=== PATIENT | male | born 1945 | race Caucasian/White ===

== ENCOUNTER → 2018-02-07 12:40 | Outpatient (CLI) | payer MEDICARE, SELFPAY | PROVIDERS: Family Provider Family Medicine; PCP Family Medicine; Visit Provider Internal Medicine Cardiovascular Disease | DX: I47.1 Supraventricular tachycardia (principal) | CPT/HCPCS: 93306 ==

== ENCOUNTER 2018-02-17 10:54 | Day surgery (SDC) | payer MEDICARE, SELFPAY ==
[2018-01-29 17:18] LABS: Absolute Lymphocyte Count 1.52 X10^3/ul (0.83-4.51); Basophil# 0.02 X10^3/uL; Basophil% 0.3 % (0-1); Eosinophil# 0.13 X10^3/uL; Eosinophils% 1.7 % (0-5); Hematocrit 48.2 % (40-54); Hemoglobin 15.9 g/dl (13.0-16.5); Lymphocyte # 1.52 X10^3/ul (4.0); Lymphocyte % 19.6 % (19-41); Mean Corpuscular Hgb 30.1 pg (27.0-32.0); Mean Corpuscular Volume 91.3 fL (80-94); Mean Platelet Vol. 11.7 fl (6.2-12.0); Monocyte# 1.11 X10^3/uL; Monocyte% 14.3 % (0-10); Neutrophil # 4.98 X10^3/uL (2.7-7.7); Platelet Count 204 K/mm3 (150-450); RBC Distribution Width CV 13.7 % (11.6-14.6); RBC Distribution Width SD 44.9 fl (35.1-43.9); Red Blood Count 5.28 M/mm3 (4.6-6.2); White Blood Count 7.8 K/mm3 (4.4-11.0)
[2018-01-29 17:19] LABS: POSITIVE COUNT NO; POSITIVE DIFFERENTIAL NO; POSITIVE MORPHOLOGY NO
[2018-01-29 18:02] LABS: Anion Gap 10 (5-15); BUN 21 mg/dL (7-18); BUN/Creat Ratio 17.5 RATIO (10-20); Chloride 104 mmol/L (98-107); EST Glomerular Filtration Rate 63 mL/min (>60); Est Glom Filt Rate - Afr Amer 77 mL/min (>60); Glucose 84 mg/dL (74-106); Potassium 4.2 mmol/L (3.5-5.1); Sodium Level 141 mmol/L (136-145)
--- NOTE | 2018-02-17 13:43 | PCM.OP.BLANK ---
Problem List (1) Fatigue Status: Acute (2) Hyperlipidemia Status: Chronic (3) Hypertension Status: Chronic (4) Paroxysmal atrial fibrillation Status: Chronic Operative Report Date of Procedure: 02/17/18 - Conscious sedation CONSCIOUS SEDATION REPORT BRIEF HISTORY OF PRESENT ILLNESS: The patient is a 72-year-old male who presented to [facility] for an elective outpatient cardioversion due to underlying atrial fibrillation. The patient reports no PO intake since midnight. The patient does not have a history of obstructive sleep apnea. The patient reports no history of smoking and COPD. The patient denies any recent constitutional symptoms such as fevers, chills, nausea or vomiting. The patient denies previous anesthetic complications. Patient's last known ejection fraction is 60%. PHYSICAL EXAMINATION: VITAL SIGNS: Reviewed and were acceptable. GENERAL: The patient is an obese male, in no apparent distress, speaking in full sentences. HEENT: Normocephalic, atraumatic. Mucous membranes are moist and pink. Good mouth opening noted. Trachea is midline. Good neck mobility. MP II CHEST: S1, S2 irregularly irregular. No murmurs, rubs or gallops were noted. LUNGS: Clear to auscultation bilaterally without appreciable wheezes, rales or rhonchi. ABDOMEN: Soft, nontender, nondistended. Positive bowel sounds. EXTREMITIES: There is no clubbing, cyanosis or edema. ASA Class: II DESCRIPTION OF PROCEDURE: After confirmation of informed consent, the patient's anesthesia plan was reviewed in detail. Propofol was chosen. Risks and benefits were reviewed and the patient agreed to proceed. At 11:22 AM, the patient was given 40 mg of propofol. The patient achieved an appropriate level of sedation and received 1 attempt s synchronized cardioversion, at [address] Rick at the bedside. This was successful in achieving normal sinus rhythm. The patient was monitored until 11:28 AM, at which time the patient reached their baseline mental status and function. The patient tolerated the procedure well. COMPLICATIONS: None ESTIMATED BLOOD LOSS: None RECOMMENDATIONS: Okay to recover in usual fashion. Code Visit 9xxxx: Other Procedure See Report - [id number]
--- NOTE | 2018-02-17 15:19 | PCM.OP.BLANK ---
Operative Report Date of Procedure: 02/17/18 DC cardioversion. 72-year-old man with a history of chronic persistent atrial fibrillation who has been anticoagulated for at least 3 weeks. The patient was brought to the cardiac catheterization lab in the postabsorptive nonsedated state. The patient was evaluated by Dr. Duncan of the critical care division. After informed consent was obtained and the ejection fraction verified as well as his medication compliance anterior posterior pads were applied. The patient was administered 40 mg of intravenous propofol, and 200 J of synchronized DC cardioversion biphasic energy were applied with prompt reversal to sinus rhythm. The patient tolerated the procedure well. Conclusion: Successful DC cardioversion from atrial fibrillation to sinus rhythm.
== END 2018-02-17 12:45 | disposition home or self-care (01) ==
LOC: CLSP 10:55
PROVIDERS: Family Provider Family Medicine; PCP Family Medicine; Visit Provider Internal Medicine Cardiovascular Disease
DX: I48.0 Paroxysmal atrial fibrillation (principal); I10 Essential (primary) hypertension; E78.5 Hyperlipidemia, unspecified; E11.9 Type 2 diabetes mellitus without complications; F41.9 Anxiety disorder, unspecified; F32.9 Major depressive disorder, single episode, unspecified; K21.9 Gastro-esophageal reflux disease without esophagitis; N40.0 Benign prostatic hyperplasia without lower urinary tract symptoms; Z79.02 Long term (current) use of antithrombotics/antiplatelets; Z79.899 Other long term (current) drug therapy; Z79.84 Long term (current) use of oral hypoglycemic drugs
CPT/HCPCS: 36415; 80048; 85025; 92960; 93005; J7040

== ENCOUNTER → 2019-02-16 | Outpatient (CLI) | payer MEDICARE, SELFPAY ==
[2018-10-17 09:29] VITALS: BMI 27.6
== END | disposition home or self-care (01) ==
LOC: PSN 12:46
PROVIDERS: Family Provider Family Medicine; PCP Family Medicine; Referring Provider Nurse Practitioner Family; Visit Provider Nurse Practitioner Family
DX: R00.1 Bradycardia, unspecified (principal)
CPT/HCPCS: 93225; 93226

== ENCOUNTER 2019-03-02 14:10 | Observation (INO) | payer MEDICARE, SELFPAY ==
[2018-10-17 09:29] VITALS: BMI 27.6
--- NOTE | 2019-02-25 03:35 | HP_ITS ---
HPI HPI History of Present Illness Surgical H&P: Yes Details: GARRETT MAHARAJ, is a 73 M who presents to the office today for a cardiovascular outpatient follow-up. He has a history of atrial fibrillation with rapid ventricular response rate. In the past he as been on amiodarone and also sotalol. His heart rate was apparently too slow on the sotalol and it was discontinued and changed over to amiodarone. He underwent a cardioversion in February 2018. He also has a history of hypertension, hyperlipidemia, and diabetes mellitus. Patient underwent a 48-hour Holter monitor after being dizzy and bradycardic at primary care physician. Per report this showed intermittent second-degree AV block type II. Because of this, his amiodarone and Coumadin was placed on hold. He will proceed with a permanent pacemaker. He continues with dizziness. This is most noted when going from a lying to standing position and when moving his head certain positions. This can be associated with near syncope. Pt. denies chest, arm, jaw, or neck discomfort. His exercise tolerance is stable. Pt. denies symptoms of CHF, palpitations, lightheadedness, or syncopal episodes. Pt. denies edema or claudication issues. Pt. denies orthopnea, PND, blood in urine, blood in stool, myalgia, or unexplainable fatigue. Intake Vital Signs 02/25/19 Height 6 ft 2 in 02/25/19 Weight: 215 lb 02/25/19 Body Mass Index (BMI) 27.6 02/25/19 Blood Pressure 113/67 02/25/19 Blood Pressure Location Lt brachial 02/25/19 Respiratory Rate 16 02/25/19 Pulse Rate 63 02/25/19 Pulse Source Monitor 02/25/19 Pulse Ox 94 Intake Visit Reasons: update H & P Deputy General Counsel Required: No Is patient in pain?: No Allergies No Known Allergies Allergy (Verified 02/25/19 14:56) Medications gabapentin 300 mg capsule 300 mg PO TID 01/29/18 [History Confirmed 02/25/19] lisinopril 20 mg tablet 20 mg PO DAILY 01/29/18 [History Confirmed 02/25/19] magnesium 250 mg tablet 250 mg PO DAILY 01/29/18 [History Confirmed 02/25/19] metformin 500 mg tablet 500 mg PO DAILY tab 01/29/18 [History Confirmed 02/25/19] multivitamin tablet 1 tab PO DAILY 01/29/18 [History Confirmed 02/25/19] sertraline 100 mg tablet 100 mg PO DAILY 01/29/18 [History Confirmed 02/25/19] tamsulosin 0.4 mg capsule 0.4 mg PO DAILY 01/29/18 [History Confirmed 02/25/19] warfarin 5 mg tablet 5 mg PO .COMPLEX 06/23/18 [History Confirmed 02/25/19] atorvastatin 40 mg tablet 40 mg PO QHS 10/17/18 [History Confirmed 02/25/19] famotidine 40 mg tablet 40 mg PO BID 02/25/19 [History Confirmed 02/25/19] [facility] Medical History (Updated 02/23/19 @ 18:00 by Liz Rankin) Mobitz type 2 second degree heart block (Chronic) Essential hypertension (Chronic) Hyperlipidemia (Chronic) Paroxysmal atrial tachycardia (Chronic) Paroxysmal atrial fibrillation (Chronic) Anxiety and depression (Chronic) BPH (benign prostatic hyperplasia) (Chronic) Chronic laryngitis (Chronic) Diverticula of colon (Chronic) GERD (gastroesophageal reflux disease) (Chronic) Gout (Chronic) Type 2 diabetes mellitus (Chronic) Fatigue (Resolved) Surgical History (Updated 04/17/18 @ 08:31 by Lilly Peraza) History of bilateral knee replacement (Resolved) History of cardioversion (Resolved 04/15/14) Previous back surgery (Resolved) amputation of toe (Resolved) Family History (Updated 04/17/18 @ 08:33 by Lilly Peraza) Mother Heart disease Father Heart disease Brother Heart disease Brother Heart disease Social History (Updated 02/25/19 @ 15:35 by ALINE Whitley) Smoking Status: Never smoker alcohol intake: never caffeine: No ROS Const Const: Negative for fatigue, weakness, body ache, fever(s) or chills ENT ENT: Positive for dizziness Cardio Chest Pain: No Palpitations: No Edema: None Muscle aches with walking: None Resp Respiratory: Negative for SOB with activity, SOB at rest, SOB orthopnea\SOB lying down or paroxysmal nocturnal dyspnea GI GI: Negative nausea, vomiting blood/hematemesis, bright, red blood in stools or black,tarry stools : Negative for hematuria or frequent nighttime urination/ nocturia Musc Musc: Negative for muscle aches/ myalgia Skin Skin: Negative non-healing lesions or rash Neuro Neuro: Positive for dizziness and near syncope; negative for lightheadedness, syncope, orthostatic symptoms or weakness Endo Endo: Negative for fatigue Allergy Allergy/Immunology: Negative for rash Cardiology Exam Const Appearance: cooperative, healthy appearing, comfortable and no acute distress Nutritional Appearance: well nourished and overweight Orientation: alert, awake and oriented x3 Head Head: normal to inspection Ears: hearing grossly normal bilaterally Nose: external nose normal Face and Sinus: face symmetric Mouth: oral mucosae normal Eyes General: appearance normal, both eyes and all related structures Eyelids: eyelids normal EOM: EOM intact bilaterally Neck Neck: normal visual inspection and no JVD Carotids: normal carotid upstroke Chest Chest inspection: normal inspection of the chest, symmetric chest movement and normal respiratory effort; negative cough Auscultation: Bilateral: Clear to Auscultation Cardio Rate: regular rate Rhythm: regular rhythm Heart sounds: S1 normal and S2 normal; negative rub, gallop or murmur GI GI: normal to inspection Neuro General: alert, awake, oriented x3 and CN's II-XI intact bilaterally Skin Skin: no rashes or lesions noted Extremities Pulses: Normal: Right Posterior Tibial Pulse, Left Posterior Tibial Pulse, Right Radial Pulse, Left Radial Pulse Lower Extremity Edema: None: Bilateral Psych Psychological: normal affect Assessment & Plan 1. Mobitz type 2 second degree heart block I44.1 Plan Second-degree AV block type II. Because of this, he will proceed with pacemaker insertion. Hopefully, this improves hisPatient's 48-hour Holter monitor from 02/16/2019 showed intermittent episodes of ongoing dizziness. His most recent echocardiogram from February 2018 showed ejection fraction of 60% and mild mitral valve insufficiency. His last nuclear stress test from 09/23/2017 was negative for ischemia. Patient was asked to keep an ENT evaluation in regards to his dizziness to ensure no other etiology. 2. Paroxysmal atrial fibrillation I48.0 Plan Patient's most recent 48-hour Holter monitor revealed no atrial fibrillation. After permanent pacemaker will be discussed in regards to resuming amiodarone. Ideally, since this has been successful he should return to amiodarone 2 mg p.o. daily. He will require ongoing evaluation of his liver function, thyroid function, and pulmonary status with chest x-ray and pulmonary function testing. 3. Essential (primary) hypertension I10 Plan Patient's heart rate and blood pressure is well controlled today in office. He will continue current medical therapy and will continue to monitor. Plan Detail Additional Comments Patient is expected undergo permanent pacemaker placement with Dr. Rick. Thank you for allowing us to participate in the patients plan of care, if you have any questions please do not hesitate to call. This note was generated using a voice recognition system and there may be incorrect words, spelling or punctuation that were not noted when reviewing the office note prior to saving. Coding Level of Care Code Off vis,est,level 3 Diagnoses Mobitz type 2 second degree heart block I44.1 Paroxysmal atrial fibrillation I48.0 Essential (primary) hypertension I10 Coding Level of Care Code Off vis,est,level 3 Diagnoses Mobitz type 2 second degree heart block I44.1 Paroxysmal atrial fibrillation I48.0 Essential (primary) hypertension I10 Supplemental Info Supplemental Information Echocardiogram from 02/07/2018: Interpretation Summary Normal LV size. Left ventricular systolic function is normal. The estimated ejection fraction is 60 %. Unable to assess diastolic dysfunction due to arrhythmia. Mild (1+) eccentric mitral valve insufficiency. Mild tricuspid valve insufficiency. Pulmonary artery systolic pressure is 24 mmHg. Diagnostics Electrocardiogram 02/24/18 Echocardiogram 02/07/18 02/25/19 1535 <Electronically signed by Alan Andrew> Date _ Alan [facility]
[2019-02-25 14:56] VITALS: BMI 27.6
--- NOTE | 2019-02-25 16:01 | RAD_ITS ---
STUDY: X-RAY CHEST REASON FOR EXAM: Male, 73 years old. Preop TECHNIQUE: PA and lateral views of the chest. COMPARISON: None. FINDINGS: The lungs are clear and expanded. There is no demonstrated pleural abnormality. Normal size heart. Normal mediastinum and carmela. Normal visualized pulmonary arteries. Normal visualized aortic arch and descending thoracic aorta. There are diffuse degenerative changes of the visualized thoracic spine. Normal visualized ribs, clavicles, and shoulders. There is no demonstrated abnormality of the visualized soft tissue structures of the upper abdomen. RAD/Chest PA and Lateral IMPRESSION: Degenerative changes, as described above. No demonstrated acute cardiopulmonary process. Electronically Signed: Alvarado Foley MD at 17:46 EDT , Service support ,
[2019-02-25 16:14] LABS: Mucous, Urine 0 SEEN /hpf (<or=2+); Red Blood Cells-Urine 0 SEEN /hpf (0-5); Squamous Epithelial Cells - UA 0 SEEN /hpf (0-5)
[2019-02-25 17:08] LABS: Hematocrit 42.8 % (40-54); Hemoglobin 14.4 g/dL (13.0-16.5); Mean Corp Hgb Conc 33.6 g/dL (32-36); Mean Corpuscular Hgb 30.7 pg (27.0-32.0); Mean Corpuscular Volume 91.3 fL (80-94); Mean Platelet Vol. 11.8 fl (6.2-12.0); Platelet Count 171 K/mm3 (150-450); RBC Distribution Width CV 13.2 % (11.6-14.6); RBC Distribution Width SD 44.2 fl (35.1-43.9); Red Blood Count 4.69 M/mm3 (4.6-6.2)
[2019-02-25 17:09] LABS: Color, Urine Yellow (Yellow); Glucose, Dipstick Normal (Normal); Ketone-Dipstick Negative (Negative); Leukocyte Esterase-Dipstick Negative /ul (Negative); Nitrite-Dipstick Negative (Negative); Occult Blood-Urine Negative /ul (Negative); Protein-Dipstick Negative (Negative); Urine Bilirubin Dipstick Negative (Negative); Urine Clarity Clear (Clear); Urine Urobilinogen Normal (Normal)
[2019-02-25 17:18] LABS: Bacteria 1+ /hpf (None Seen); White Blood Cells 0-5 SEEN /hpf (0-5)
[2019-02-25 17:33] LABS: Prothrombin Time (Protime)PT. 22.8 SECONDS (11.7-14.9)
[2019-02-25 17:37] LABS: Anion Gap 5 (5-15); BUN 18 mg/dL (7-18); Calcium,Total 8.1 mg/dL (8.5-10.1); Chloride 110 mmol/L (98-107); Creatinine, Serum 1.06 mg/dL (0.70-1.30); EST Glomerular Filtration Rate 73 mL/min (>60); Est Glom Filt Rate - Afr Amer 88 mL/min (>60); Glucose 97 mg/dL (74-106); Potassium 3.9 mmol/L (3.5-5.1); Sodium Level 143 mmol/L (136-145)
[2019-02-27 13:04] VITALS: BMI 27.6
[2019-03-02] VITALS (12 sets, daily range): BP systolic 120–146; BP diastolic 53–94; PULSE 48–57; RESP 14–16; TEMP 36.6–37.1; O2SAT 96–98
[2019-03-02] MEDS: Cefazolin 2 GM in 0.9% Normal Saline 100 ML IV (07:00)
[2019-03-02 10:49] LABS: Prothrombin Time Fingerstick 11.8 SEC (11.9-14.4)
--- NOTE | 2019-03-02 14:08 | CL.IE_ITS ---
Patient: GARRETT MAHARAJ Study Date: 03/02/2019 Performing: Carlos Rick MD : 1945 Age: 74 Gender: male PROCEDURES PERFORMED [id number] PACER INSERT+DUAL LEADS INDICATIONS Mobitz (type II) AV block PROCEDURE DETAILS The patient was brought to the Catheterization Lab in the postabsorptive nonsedated state. Infor med consent was obtained prior to the procedure. Local anesthetic was given subcutaneously to the le ft subclavian region with Lidocaine 2%. A peel-away sheath was inserted into the left subclavian vein . PPM ventricular lead was inserted / positioned to right ventricular. PPM ventricular lead testing p erformed. PPM ventricular lead testing performed. PPM atrial lead was inserted / positioned to the ri ght atrial appendage. PPM atrial lead testing performed. The Atrial lead sutured in place with 2-0 Si lk. The Ventricular PM lead sutured in place with 2-0 Silk. Device pocket was irrigated with antibiot ic-Ancef. Subcutaneous closure was completed with 3-0 Vicryl. Skin closure was completed with 4-0 Hunter ryl. Steri-strips applied to left subclavicular incision. The patient tolerated the procedure well. Estimated Blood Loss: < 10 mls IMPLANTED / EX-PLANTED DEVICES IMPLANTED DEVICE(S): PPM Generator - Atmospheric Physics Professor: 5 examples, Model # L311 , Serial # [id number] Atrial lead - Atmospheric Physics Professor: [employer], Model # 7741 , Serial # [id number] PPM Ventricular lead - Atmospheric Physics Professor: [employer], Model # 7742 , Serial # [id number] DEVICE PARAMETERS ATRIAL LEAD PARAMETERS: P wave- 0.5 (mV) Current- 1.4 (mA) threshold- 0.9 (V) impedence- 655 (OHMS) 10V test, no diaphragmatic capture VENTRICULAR LEAD PARAMETERS: R wave- 11.5 (mV) Current- 0.6 (mA) threshold- 0.5 (V) impedence- 941 (OHMS) 10V test, no diaphragmatic capture DEVICE PARAMETERS: Mode- DDD Lower rate- 45 Upper rate- 130 CONCLUSIONS / RECOMMENDATIONS Device Conclusions: Successful implantation of a dual chamber pacemaker Device Conclusions: Successful implantation of a dual chamber pacemaker Device Recommendations: Follow up with Primary Care Physician Device Recommendations: Follow up with Primary Care Physician PROCEDURE MEDICATIONS Versed 1 mg IV Fentanyl 50 mcg IV Versed 1 mg IV Oxygen: 2 L/min via nasal cannula Antibiotic given in appropriate timeframe. Ancef 2 Gm IV @ 03/02/2019 12:51:36 Signed By Carlos Rick MD On 03/02/2019 14:07:45 Carlos Rick MD
[2019-03-02] MEDS: Atorvastatin Calcium 40 MG Tablet PO (22:03)
[2019-03-02] MEDS: Gabapentin 300 MG Capsule PO (22:03)
[2019-03-02] MEDS: Famotidine 20 MG Tablet PO (22:03)
[2019-03-03 02:42] VITALS: BP 160/85; PULSE 50; RESP 16; TEMP 36.7; O2SAT 96
--- NOTE | 2019-03-03 02:48 | NURSING ---
Report given to Lillie Lakhani RN at this time. She will be taking over care of this patient at this time.
[2019-03-03 02:49] VITALS: PULSE 47
[2019-03-03 03:24] VITALS: PULSE 48
[2019-03-03 05:02] VITALS: BP 146/79; PULSE 51; RESP 16; TEMP 36.5; O2SAT 98
[2019-03-03] MEDS: Gabapentin 300 MG Capsule PO (05:04)
--- NOTE | 2019-03-03 05:55 | RAD_ITS ---
HISTORY: FOLLOWUP FOR Pneumothorax EXAMINATION/TECHNIQUE: XR Chest 2 Views: COMPARISON: 02/25/2019 FINDINGS: EKG leads in place. Left subclavian dual-chamber transvenous pacemaker, new compared to previous. Electrode tips in the region of the right atrium and right ventricle. No pneumothorax seen. Normal heart size. No vascular congestion, pleural effusion, or pulmonary infiltration. RAD/Chest PA and Lateral IMPRESSION: 1. No acute cardiopulmonary disease. 2. Left subclavian -dual-chamber transvenous pacemaker. No pneumothorax. at 0617 Reported and signed by: Yang Vogel MD Electronically Signed: Yang Vogel, at 6:16 EDT Tel , Service support ,
[2019-03-03 07:21] VITALS: PULSE 50
[2019-03-03] MEDS: Multivitamins,Therapeutic Tablet 1 TABLET PO (08:58)
[2019-03-03] MEDS: metFORMIN HCl 500 MG Tablet PO (08:58)
--- NOTE | 2019-03-03 09:13 | PCM.PN.CARD ---
Subjectve: Patient seen and evaluated. Appears to be doing well. Objective: Vital Signs Temp Pulse Resp BP Pulse Ox 97.7 F L 50 L 16 146/79 H 98 03/03/19 05:02 03/03/19 07:21 03/03/19 05:02 03/03/19 05:02 03/03/19 05:02 Oxygen Delivery Method Room Air Weight: 215 lb Body Mass Index (BMI) 27.6 Intake and Output for Last 24 Hours 03/01/19 03/02/19 03/03/19 23:59 23:59 23:59 Intake Total 630 / 630 Output Total 400 / 400 300 / 300 Balance 230 / 230 -300 / -300 General: Awake, Alert, Oriented x 3 HEENT: PERRL, EOMI, Sclera Non Icteric Neck: Supple, Good ROM, No Lymph Node Enlargement Lungs: Clear to auscultation Cardiovascular: Regular Rhythm, Normal S1, Normal S2, No Murmurs, No Rubs, No Gallops Vascular: No Carotid Bruits, Normal Femoral Pulses, Normal Radial Pulses, Normal Dorsalis Pedal Pulse, Normal Posterior Tibial Pulses Abdomen: Bowel Sounds Present, Soft, Non Tender, No HSM, No Organomegaly Extremities: No Cyanosis, No Clubbing, No edema Lymphatic: No Lymph Node Enlargement Neurological: No Focal Motor or Sensory Deficit 03/02/19 10:04: INR 0.90 Rhythm: EKG: ECHO: Stress Test: Cardiac Cath: PCI: CT Surgery: Holter monitor: EPS: PPM: CXR: Chest CT Scan: Medical Necessity - Tobacco Use Smoking Status: Never smoker Assessment/Plan 1 status post permanent pacemaker placement. Patient was seen and evaluated. Chest x-ray appears to be normal position. Pacer check demonstrated no significant abnormalities. Patient to be discharged for outpatient follow-up.
--- NOTE | 2019-03-03 09:15 | DCINST_ITS ---
Discharge Diet: No Restrictions Discharge Activity: May Not Drive Additional Activity Instructions:: May shower or bathe on []. Do not scrub the incision or soak in the tub. Just wash with soap and let the water run over the incision. Gently pat dry with towel. Medications: Take your pain medication as directed. Refer to your discharge instruction sheet for a list of medications you are to take. Call your doctor if your incision/area has: Continuous Slow Oozing, Sudden Increased Bleeding, Increased Pain/ Swelling, Increased Redness, Foul Smelling Discharge, Swelling at the incision site Call your doctor if you observe: Fever of 101 or Higher, Shortness of breath, Dizziness, Fainting spells, Swelling in the ankles, Chest pain, Prolonged hiccoughing, Increased palpitations (irregular heartbeat) Suture Line Care: Avoid Pulling/Pushing, Avoid Pinching/Bending Cleanse incision/area with: Keep Dressing Clean & Dry Additional Dressing/Incision Instructions:: When dressing is removed, wash and dry incision. Keep covered with a light bandage if it is rubbing against your clothing. Do not cover the incision with an airtight bandage. Change the bandage daily. Do not remove steri strips. The strips will fall off on their own. Additional Instructions: Signs and Symptoms to Report to Your Doctor at Once - call your doctor's office or Doctor's Registry ([phone]) Call [phone] or go to the nearest Emergency Department if you feel you need urgent care. *Infection (fever, increased redness or swelling at the incision site, drain age from the incision increased pain at the pacemaker site) *Shortness of breath *Dizziness *Fainting spells *Swelling in the ankles *Chest pain *Prolonged hiccoughing *Increased palpitaitons (irregular heartbeat) Medications: Take your pain medication as directed. Refer to your discharge instruction sheet for a list of medications you are to take. Allergies/Adverse Reactions: Allergies No Known Allergies Allergy (Verified 02/25/19 14:56) Medications to take at Discharge gabapentin 300 mg capsule 300 mg PO TID 01/29/18 lisinopril 20 mg tablet 20 mg PO DAILY 01/29/18 magnesium 250 mg tablet 250 mg PO DAILY 01/29/18 metformin 500 mg tablet 500 mg PO DAILY tab 01/29/18 multivitamin tablet 1 tab PO DAILY 01/29/18 sertraline 100 mg tablet 100 mg PO DAILY 01/29/18 tamsulosin 0.4 mg capsule 0.4 mg PO DAILY 01/29/18 atorvastatin 40 mg tablet 40 mg PO QHS 10/17/18 amiodarone 200 mg tablet 200 mg PO DAILY 02/25/19 famotidine 40 mg tablet 40 mg PO BID 02/25/19 Primary Care Physician: Humza Guevara MD [Primary Care Provider] - Test Results: Test results from this visit will be discussed in further detail at your follow- up appointment, if applicable. When: PACER FOLLOW UP MARCH 09 AT 3:30 PM Proposed Discharge Date: 03/03/19
[2019-03-03 09:46] VITALS: BP 140/78; PULSE 53; RESP 14; TEMP 36.6; O2SAT 97
[2019-03-27 14:21] LABS: Prothrombin Time Fingerstick 11.8 SEC (11.9-14.4)
== END 2019-03-03 09:16 | disposition home or self-care (01) ==
LOC: PCU 03-03 11:09 → CLSP 03-03 11:09 → PCU 03-03 11:10
PROVIDERS: Nurse Practitioner Family; Admitting Provider Internal Medicine Cardiovascular Disease; Family Provider Family Medicine; PCP Family Medicine; Referring Provider Internal Medicine Cardiovascular Disease; Visit Provider Internal Medicine Cardiovascular Disease
DX: Z45.018 Encounter for adjustment and management of other part of cardiac pacemaker (principal); I10 Essential (primary) hypertension; E78.5 Hyperlipidemia, unspecified; E11.9 Type 2 diabetes mellitus without complications; I48.91 Unspecified atrial fibrillation; I44.1 Atrioventricular block, second degree; I48.0 Paroxysmal atrial fibrillation; F41.9 Anxiety disorder, unspecified; F32.9 Major depressive disorder, single episode, unspecified; N40.0 Benign prostatic hyperplasia without lower urinary tract symptoms; K21.9 Gastro-esophageal reflux disease without esophagitis; Z79.899 Other long term (current) drug therapy; Z79.84 Long term (current) use of oral hypoglycemic drugs
CPT/HCPCS: 33208; 36415; 36416; 71046; 80048; 81001; 85027; 85610; 99152; 99153; 99218; J7040; J7050; C1894; G0378; G0379

== ENCOUNTER → 2020-01-21 | Outpatient (CLI) | payer MEDICARE, SELFPAY ==
[2020-01-21 10:12] VITALS: BMI 28.5
[2020-01-21 13:16] LABS: Thyroid Stim Hormone (TSH) 4.28 uIU/mL (0.358-3.74)
== END | disposition home or self-care (01) ==
LOC: LAB 11:02
PROVIDERS: PCP Family Medicine; Referring Provider Internal Medicine Cardiovascular Disease; Visit Provider Internal Medicine Cardiovascular Disease
DX: I47.1 Supraventricular tachycardia (principal)
CPT/HCPCS: 36415; 84443

== ENCOUNTER → 2020-01-27 07:31 | Outpatient (CLI) | payer MEDICARE, SELFPAY ==
[2020-01-21 10:12] VITALS: BMI 28.5
--- NOTE | 2020-01-27 07:32 | CDU_ITS ---
Reason For Study: Dizziness Rt. Velocities/BP Lt. Velocities/BP Prox CCA 82.5/16.0 cm/sec. Prox CCA 60.5/16.0 cm/sec. Mid CCA 60.7/15.4 cm/sec. Mid CCA 62.2/19.5 cm/sec. Dist CCA 53.2/17.3 cm/sec. Dist CCA 57.0/17.7 cm/sec. Prox ICA 50.9/22.3 cm/sec. Prox ICA 50.9/22.1 cm/sec. Mid ICA 66.3/30.0 cm/sec. Mid ICA 90.5/38.8 cm/sec. Dist ICA 58.6/21.2 cm/sec. Dist ICA 95.6/33.1 cm/sec. Rt. ICA/CCA = 1.09. Lt. ICA/CCA = 1.58. Prox ECA 70.6/11.3 cm/sec. Prox ECA 64.8/14.2 cm/sec. Rt. Vert. 41.5/13.7 cm/sec. Lt. Vert. 32.5/12.5 cm/sec. Right Extracranial There is intimal thickening but no significant atherosclerotic plaque noted in the right common carotid artery. There is heterogeneous, irregular atherosclerotic plaque noted in the right internal carotid artery. There is intimal thickening but no significant atherosclerotic plaque noted in the right external carotid artery. Antegrade flow is noted in the right vertebral artery. Left Extracranial There is homogeneous, smooth atherosclerotic plaque noted in the left common carotid artery. There is intimal thickening but no significant atherosclerotic plaque noted in the left internal carotid artery. There is intimal thickening but no significant atherosclerotic plaque noted in the left external carotid artery. Antegrade flow is noted in the left vertebral artery. Procedure Carotid Duplex [id number]. Exam performed in department. Interpretation Summary Mild (<50%) stenosis right extracranial internal carotid. Mild (<50%) stenosis left extracranial internal carotid. Flow within the vertebral arteries is antegrade bilaterally. Ordering Physician: Carlos Rick Referring Physician: Gunning. Ching Performed By: Bobbi Wu RVT, RDCS and Student
== END ==
PROVIDERS: PCP Family Medicine; Referring Provider Internal Medicine Cardiovascular Disease; Visit Provider Internal Medicine Cardiovascular Disease
DX: R42 Dizziness and giddiness (principal)
CPT/HCPCS: 93880

== ENCOUNTER → 2020-02-25 | Outpatient (CLI) | payer MEDICARE, SELFPAY ==
[2020-01-21 10:12] VITALS: BMI 28.5
--- NOTE | 2020-02-26 09:57 | PFT ---
INTRODUCTION: The patient is a 74-year-old male that presents for pulmonary function studies secondary to a diagnosis of shortness of breath. Respiratory therapy reports good patient effort. Bronchodilators were used during testing. INTERPRETATION: Forced expiration spirometry demonstrates no evidence of a large airways obstructive ventilatory defect. There was no significant response to aerosolized bronchodilators. Spirograms are of good quality and plateau normally. Body plethysmography was performed and reveals a decreased TLC to 6.13 L, 83% of predicted, indicative of a mild restrictive ventilatory impairment. The remainder of the lung volumes are symmetrically reduced. Diffusing capacity by single breath CO is within normal limits. IMPRESSION: Isolated mild restrictive ventilatory impairment with preserved diffusing capacity.
== END | disposition home or self-care (01) ==
LOC: PSN 08:54
PROVIDERS: PCP Family Medicine; Referring Provider Internal Medicine Cardiovascular Disease; Visit Provider Internal Medicine Cardiovascular Disease
DX: R42 Dizziness and giddiness (principal)
CPT/HCPCS: 94060; 94726; 94729

== ENCOUNTER 2020-09-19 18:25 | Emergency (ER) | payer MEDICARE, SELFPAY ==
[2020-07-25 09:45] VITALS: BMI 30.1
[2020-09-19 18:26] VITALS: BP 123/92; PULSE 60; RESP 14; TEMP 36.7; O2SAT 97; BMI 28.3
--- NOTE | 2020-09-19 18:36 | ED.DCSUM_ITS ---
History of Present Illness Chief Complaint: Lower Extremity Injury Informant: Patient Onset: Days Context: Gradual Onset Timing: Continuous Current Severity: Moderate Maximum Severity: Moderate Narrative: Patient is a 75-year-old male medical history significant for atrial fibrillation who is on Coumadin, diabetes with neuropathy, who presents to the emergency department with right foot wound. The patient states that for the past week, he is noted some swelling in his foot. He states that 2 nights ago, they wrapped it in an Brandon bandage. They took it off this morning, noticed that he had multiple blisters on the area. He denies any significant pain, but states that is not atypical because of his neuropathy. He is not had fevers or chills. He denies any other systemic complaints. Prior similar symptoms: No Recent Illness/Hospitalization: No Past Medical History - Allergies and Home Meds Allergies/Adverse Reactions: Allergies No Known Allergies Allergy (Verified 09/19/20 18:28) Primary Care Physician: Natalie Lee DPM [STAFF PHYSICIAN] - Prior records reviewed: Yes Past Medical History: - - Hypertension, diabetes, atrial fibrillation, neuropathy Surgical History: noncontributory Smoking Status: Never smoker Review of Systems General: Denies: Chills, Fever, Sweats Eyes: Denies: Visual changes - bilaterally, Diplopia ENT: Denies: Rhinorrhea, Sore throat Cardiovascular: Denies: Chest pain, Palpitations Respiratory: Denies: Dyspnea, Cough, Dyspnea on exertion Gastrointestinal: Denies: Abdominal pain, Nausea, Vomiting, Diarrhea, Melena, Hematochezia Genitourinary: Denies: Dysuria, Hematuria, Frequency Musculoskeletal: Denies: Back pain, Extremity Pain Skin: Denies: Rash, Wounds Neurological: Denies: Headache, Weakness, Numbness Physical Exam Vital Signs/Narrative: Vital Signs Temp Pulse Resp BP Pulse Ox 09/19/20 18:26 98.0 F 60 14 123/92 H 97 Inital Vital Signs reviewed: Yes General: Well nourished, Well developed, No Acute Distress Head: Normocephalic, Atraumatic Eyes: Perrl, EOMI ENT: Moist mucous membranes, No rhinorrhea Neck: Supple, Nontender Cardiovascular: Regular rate, Regular rhythm, No murmurs Respiratory: No distress, CTA bilaterally, Chest nontender Abdomen: Soft, Nontender, Nondistended, Normal bowel sounds Back: Nontender, Normal Inspection Extremities: Nontender, No edema, - - Patient has multiple areas of blister over the dorsum of the right foot. There is some soft tissue loss. There is no evidence of cellulitis or streaking. His pulses are normal. Skin: Normal color, No rash Neurological: Alert, Oriented x3, Cranial nerves II-XII grossly intact, Normal Strength, Normal Sensation Psychological: Normal affect, Normal Mood Diagnostic/Tx/Re-eval Clinical Impression(s) from Imaging Studies Foot X-Ray 09/19/20 18:38 IMPRESSION: No acute radiographic abnormalities. Severe degenerative osteoarthritis of the foot. Electronically Signed: Keagan Campo MD at 20:01 EDT Tel , Service support , Abnormal Lab Results 09/19/20 09/19/20 09/19/20 18:40 18:40 18:40 WBC 7.0 RBC 5.32 Hgb 15.8 Hct 48.1 MCV 90.4 MCH 29.7 MCHC 32.8 RDW Std Deviation 43.2 RDW Coeff of Norberto 12.9 Plt Count 188 MPV 11.1 Immature Gran % (Auto) 0.100 Neut % (Auto) 63.8 Lymph % (Auto) 22.3 [place] % (Auto) 10.6 H Eos % (Auto) 2.6 Baso % (Auto) 0.6 Absolute Neuts (auto) 4.5 Absolute Lymphs (auto) 1.56 Nucleated RBC % 0 PT 19.9 H INR 1.8 Sodium 140 Potassium 4.1 Chloride 106 Carbon Dioxide 27.0 Anion Gap 7 BUN 19 H Creatinine 1.37 H Estim Creat Clear Calc 55.00 Est GFR (MDRD) Af Amer 65 Est GFR (MDRD) Non-Af 54 L BUN/Creatinine Ratio 13.9 Glucose 95 Calcium 8.8 Total Bilirubin 0.70 AST 27 ALT 37 Alkaline Phosphatase 161 H Total Protein 7.7 Albumin 4.0 Globulin 3.7 Albumin/Globulin Ratio 1.1 - Medical Decision Making Presents with blisters on his foot after wearing a compressive dressing. His pulses are normal. He does have neuropathy. These do not look overwhelmingly cellulitic. He is however at higher risk for developing infection. X-rays were obtained which showed chronic arthritis, but no foreign body or fracture. His lab work was unremarkable. He is not had fever or chills. He denies sweats. I do feel the safest thing right now would be to place him on prophylactic Keflex, along with a loose bacitracin dressing postoperative shoe. He has follow-up on Saturday which is about 36 hours from now. I do feel that this is appropriate to make sure that he is healing appropriately. Patient is comfortable this plan of care and will be discharged home. Impression 1. Right foot blisters ED Disposition - Plan for ED Patient: Instructions: ED Blister (Adult) Prescriptions: Bacitracin 30 gm TP TID #30 oint...g. Prescription Printed Cephalexin [Keflex] 500 mg PO Q8 #21 capsule Prescription Printed Referrals: Natalie Lee DPM [STAFF PHYSICIAN] -
--- NOTE | 2020-09-19 18:38 | RAD_ITS ---
INDICATION: pain EXAMINATION/TECHNIQUE: X-RAY - RIGHT XR Foot Min 3 Views COMPARISON: None. FINDINGS: No acute fracture or malalignment. No blastic or lytic lesions. Severe degenerative changes of the first metatarsophalangeal joint and tarsometatarsal articulations. The soft tissues are unremarkable. Plantar dorsal heel spurs. RAD/Foot min 3 Views IMPRESSION: No acute radiographic abnormalities. Severe degenerative osteoarthritis of the foot. Electronically Signed: Keagan Campo MD at 20:01 EDT Tel , Service support ,
[2020-09-19 18:49] LABS: Absolute Lymphocyte Count 1.56 X10^3/uL (0.83-4.51); Absolute Neutrophil Count 4.5 X10^3/uL (2.0-7.7); Basophil# 0.04 X10^3/uL; Basophil% 0.6 % (0-1); Eosinophil# 0.18 X10^3/uL; Eosinophils% 2.6 % (0-5); Hematocrit 48.1 % (40-54); Hemoglobin 15.8 g/dL (13.0-16.5); Lymphocyte # 1.56 X10^3/ul (0.83-4.51); Lymphocyte % 22.3 % (19-41); Mean Corp Hgb Conc 32.8 g/dL (32-36); Mean Corpuscular Hgb 29.7 pg (27.0-32.0); Mean Corpuscular Volume 90.4 fL (80-94); Mean Platelet Vol. 11.1 fl (6.2-12.0); Monocyte# 0.74 X10^3/uL; Monocyte% 10.6 % (0-10); NRBC Flagged by Analyzer 0 % (0-5); Neutrophil # 4.47 X10^3/uL (2.7-7.7); Neutrophil % 63.8 % (47-70); Platelet Count 188 K/mm3 (150-450); RBC Distribution Width CV 12.9 % (11.6-14.6); RBC Distribution Width SD 43.2 fl (35.1-43.9); Red Blood Count 5.32 M/mm3 (4.6-6.2)
[2020-09-19 18:56] LABS: International Normalized Ratio 1.8; Prothrombin Time (Protime)PT. 19.9 SECONDS (11.7-14.9)
[2020-09-19 19:12] VITALS: BP 159/94; PULSE 61; RESP 18; O2SAT 97
[2020-09-19 19:35] LABS: ALB/GLOB Ratio 1.1 RATIO (0.9-2.4); AST(SGOT) 27 U/L (15-37); Alanine Aminotransfer ALT/SGPT 37 U/L (16-61); Alkaline Phosphatase 161 U/L (45-117); Anion Gap 7 (5-15); BUN 19 mg/dL (7-18); BUN/Creat Ratio 13.9 RATIO (10-20); Calcium,Total 8.8 mg/dL (8.5-10.1); Chloride 106 mmol/L (98-107); Creatinine, Serum 1.37 mg/dL (0.70-1.30); EST Glomerular Filtration Rate 54 mL/min (>60); Est Glom Filt Rate - Afr Amer 65 mL/min (>60); Globulin 3.7 g/dL (2.2-4.2); Glucose 95 mg/dL (74-106); Potassium 4.1 mmol/L (3.5-5.1); Protein, Total 7.7 g/dL (6.4-8.2); Sodium Level 140 mmol/L (136-145)
[2020-09-19 20:28] VITALS: BP 148/78; PULSE 66; RESP 16; O2SAT 97
== END 2020-09-19 20:29 | disposition home or self-care (01) ==
LOC: ED 19:01
PROVIDERS: Emergency Provider Emergency Medicine; PCP Family Medicine
DX: R23.8 Other skin changes (principal); E11.40 Type 2 diabetes mellitus with diabetic neuropathy, unspecified; I48.91 Unspecified atrial fibrillation; I10 Essential (primary) hypertension; Z79.01 Long term (current) use of anticoagulants; Z79.84 Long term (current) use of oral hypoglycemic drugs; Z79.899 Other long term (current) drug therapy
CPT/HCPCS: 73630; 80053; 85025; 85610; 99284; A4216

== ENCOUNTER 2020-09-22 13:30 | Inpatient (IN) | payer MEDICARE, SELFPAY ==
[2020-09-22 11:55] VITALS: BMI 28.3
[2020-09-22 12:32] VITALS: BMI 28.3
--- NOTE | 2020-09-22 13:32 | PCM.HP.STD ---
Problem List (1) Frequent headaches Status: Chronic (2) Dizziness Status: Resolved (3) History of permanent cardiac pacemaker placement Status: Chronic (4) Mobitz type 2 second degree heart block Status: Chronic (5) Sick sinus syndrome with tachycardia Status: Chronic (6) Paroxysmal atrial tachycardia Status: Chronic (7) Paroxysmal atrial fibrillation Status: Chronic (8) Essential hypertension Status: Chronic (9) Hyperlipidemia Status: Chronic Qualifiers: History of Present Illness Date of Admission: 09/22/20 Chief Complaint: Right foot wound, sent by podiatry. The patient is a 75 year old M who presents from podiatry office due to worsening right foot wounds. Patient states he wore a rubber boot that rubbed his foot and initially had a wound on his right arch/plantar area which has since worsened and now has multiple open areas and worsening redness and drainage. He denies fever, chills. He states he has neuropathy and is not able to feel any pain. Patient established with podiatry today for the first time and due to wound appearance, was referred to the hospital for further treatment and management. He has a past medical history of sick sinus syndrome status post pacemaker placement, paroxysmal atrial fibrillation, hypertension, hyperlipidemia, type 2 diabetes mellitus, BPH, depression. Past Medical History Past Medical History (Chronic Problems): Chronic Problems (Last Reviewed 07/25/20 @ 10:22 by Mildred MCKEON PA) Frequent headaches (Chronic) History of permanent cardiac pacemaker placement (Chronic 03/02/19) Mobitz type 2 second degree heart block (Chronic) Sick sinus syndrome with tachycardia (Chronic) Paroxysmal atrial tachycardia (Chronic) Paroxysmal atrial fibrillation (Chronic) Essential hypertension (Chronic) Hyperlipidemia (Chronic) Medical History: Medical History (Last Reviewed 07/25/20 @ 10:22 by Mildred MCKEON PA) Mobitz type 2 second degree heart block (Chronic) I44.1 Sick sinus syndrome with tachycardia (Chronic) I49.5 Paroxysmal atrial tachycardia (Chronic) I47.1 Paroxysmal atrial fibrillation (Chronic) I48.0 Essential hypertension (Chronic) I10 Hyperlipidemia (Chronic) E78.5 Anxiety and depression F41.9, F32.9 BPH (benign prostatic hyperplasia) N40.0 Chronic laryngitis J37.0 Diverticula of colon K57.30 GERD (gastroesophageal reflux disease) K21.9 Gout M10.9 Type 2 diabetes mellitus E11.9 Fatigue (Resolved) R53.83 Allergies No Known Allergies Allergy (Verified 09/19/20 18:28) Home Medications: Ambulatory Orders Medication Instructions Recorded gabapentin 300 mg capsule 900 mg PO TID 01/29/18 metformin 500 mg tablet 500 mg PO DAILY tab 01/29/18 multivitamin 1 tab PO DAILY 01/29/18 sertraline 100 mg tablet 100 mg PO DAILY 01/29/18 tamsulosin 0.4 mg capsule 0.4 mg PO DAILY 01/29/18 atorvastatin 40 mg tablet 40 mg PO QHS 10/17/18 warfarin 4 mg tablet 4 mg PO QMWF 04/21/19 amiodarone 200 mg tablet 100 mg PO DAILY tab 01/21/20 Warfarin Sodium 2 mg PO SUTUTHSA 09/19/20 Psyllium [Metamucil] 1 packet PO DAILY 09/22/20 Surgical History: Surgical History (Last Reviewed 09/22/20 @ 13:37 by Tessa Rodriguez COMMISSIONING SPECIALIST, COMMISSIONING SPECIALIST-C) History of permanent cardiac pacemaker placement (Chronic) Onset Date: 03/02/19 Z95.0 Amputated toe S98.139A History of bilateral knee replacement Z96.653 History of cardioversion Onset Date: 02/17/18 Z98.890 04/15/14, 02/17/2018 Previous back surgery Z98.890 Psychiatric History: No pertinent psych hx Lives: Spouse/ Significant Other Smoking Status: Never smoker Alcohol: None Drugs: None - *Family History Maternal Family History: Family History (Last Reviewed 07/25/20 @ 10:22 by Mildred MCKEON, PA) Mother Heart disease Father Heart disease Brother Heart disease Brother Heart disease History Items: Diabetes, Heart Disease Paternal Family History: Family History (Last Reviewed 07/25/20 @ 10:22 by Mildred MCKEON, PA) Mother Heart disease Father Heart disease Brother Heart disease Brother Heart disease History Items: Diabetes, Heart Disease Review of Systems Constitutional: Denies: Chills, Fever, Weight Change HEENT: Denies: Head Aches, Sinus Congestion, Sinus Drainage Cardiovascular: Denies: Chest Pain, Palpitations Respiratory: Denies: Cough, Shortness of breath at rest, Sputum production Gastrointestinal: Denies: Abdominal Pain, Nausea, Vomiting Genitourinary: Denies: Dysuria Musculoskeletal: Denies: Joint Pain, Joint Tenderness Skin: Reports: - - Right foot wounds Neurological: Denies: Numbness, Tingling, Focal weakness Psychiatric: Reports: Depression. Denies: Anxiety, Homicidal Ideations, Suicidal Ideations Hematologic/ Lymphatic: Denies: Easy Bruising, Easy Bleeding VTE Information - Inpt Only VTE Present on Admission: No VTE Mechan Device Prophylaxis: None VTE Pharm Prophylaxis ordered?: No Reason prophylaxis not ordered:: Treatment Not Indicated - On anticoagulation with Coumadin - Physical Exam Vitals/I&O's: Weight: 220 lb 7.396 oz Body Mass Index (BMI) 28.3 General: Alert, Oriented x3, Cooperative HEENT: Atraumatic, PERRLA, EOMI, Normocephalic Neck: Supple, No JVD, Negative Carotid Bruits Lungs: Clear to auscultation, Normal air movement Cardiovascular: Regular rate, No murmurs Abdomen: Bowel Sounds Present, Soft, Non Tender Extremities: No clubbing, No cyanosis, No edema, Capillary Refill Less than 3 Seconds Skin: No rashes, No breakdown, - - Multiple wounds right foot with serosanguineous drainage and surrounding erythema. Musculoskeletal: - - Right charcot foot Neurological: Cranial nerves II-XII grossly intact, Neuro grossly intact Psych/Mental Status: Normal Affect, Appropriate Current Medications Acetaminophen (Acetaminophen 325 Mg Tablet) 650 mg PO Q6H PRN PRN PRN Reason: Pain Score 1-10/Temp > 100.7 F Amiodarone HCl (Amiodarone 200 Mg Tablet) 100 mg PO DAILYCM [facility] Atorvastatin Calcium (Atorvastatin Calcium 40 Mg Tablet) 40 mg PO QHS [facility] Enoxaparin Sodium (Enoxaparin 40 Mg/0.4 Ml Syringe) 40 mg SC DAILY [facility] Gabapentin (Gabapentin 300 Mg Capsule) 900 mg PO TIDCM [facility] Sodium Chloride () 250 mls @ 15 mls/hr IV .[id number] PRN PRN Reason: Saline Flush Piperacillin Sod/Tazobactam (Sod 3.375 gm/ Sodium Chloride) 50 mls @ 12.5 mls/hr IV Q8 [facility] Multivitamins (Multivitamins,Therapeutic Tablet) 1 tablet PO DAILYCM [facility] Ondansetron HCl (Ondansetron 4 Mg/2 Ml Vial) 4 mg IV Q8H PRN PRN PRN Reason: NAUSEA/VOMITING Oxycodone HCl (Oxycodone 5 Mg Tablet) 5 mg PO Q4H PRN PRN PRN Reason: Pain Score 4-5 Psyllium Hydrophilic Mucilloid (Psyllium 1 Packet) 1 packet PO DAILY [facility] Sertraline HCl (Sertraline 100 Mg Tablet) 100 mg PO DAILY [facility] Sodium Chloride (0.9% Saline Lock 10 Ml Syringe) 10 - 40 ml IV UD PRN PRN Reason: SALINE FLUSH Tamsulosin HCl (Tamsulosin Hcl 0.4 Mg Capsule) [facility] Warfarin Sodium (Warfarin 4 Mg Tablet) 2 mg PO SuTuThSa@1700 [facility] Warfarin Sodium (Warfarin 4 Mg Tablet) 4 mg PO MoWeFr@1700 [facility] Assessment/Plan All Active Problems (Last Reviewed 07/25/20 @ 10:22 by Mildred Trevizo PA, PA) Dizziness (Resolved) Fatigue (Resolved) Orthostatic hypotension (Ruled-out) 1. Right foot wounds with associated cellulitis, possible abscess- podiatry consult. CT lower extremity. IV zosyn. Wound RN consult. MRSA PCR. Podiatry to order vascular studies. PT/OT. 2. Sick sinus syndrome status post pacemaker placement 3. Paroxysmal atrial fibrillation-on amiodarone, Coumadin. 4. Hypertension-stable, does not appear to be on regimen. 5. Hyperlipidemia- on statin. 6. 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 Accu-Cheks with sliding scale insulin. Continue gabapentin. 7. BPH-continue Flomax. 8. Depression-on sertraline. DVT prophylaxis-Coumadin This patient was seen by ALINE Mora under the supervision of Dr. Barnard.
--- NOTE | 2020-09-22 13:41 | CT_ITS ---
STUDY: CT SCAN FOOT RIGHT REASON FOR EXAM: Male, 75 years old. Abscess -- rule out right foot abscess RADIATION DOSAGE (If Supplied By Facility): CTDIvol = ( 19.84 ) mGy, DLP = ( 596.26 ) mGycm. Individualized dose optimization techniques were used for this CT.? TECHNIQUE: Multiple axial tomographic images were obtained without intervenous contrast administration. Coronal and sagittal reconstruction was obtained as well. COMPARISON: Comparison is made with prior radiographs dated 09/19/2020. FINDINGS: Diffuse subcutaneous soft tissue swelling of the distal aspect of the leg extending into the region of the ankle and foot. This is more pronounced along the plantar aspect of the foot posteriorly. There is evidence of degenerative changes at the level of the tarsal articulations. No fractures seen. CT/Extremity Lower WITH Contrast IMPRESSION: Diffuse soft tissue swelling. No focal abscess is seen. Degenerative changes of the tarsal joints. Electronically Signed: Rich Jerome MD at 15:54 EDT , Service support ,
[2020-09-22 14:02] LABS: Hematocrit 43.4 % (40-54); Hemoglobin 14.2 g/dL (13.0-16.5); Mean Corp Hgb Conc 32.7 g/dL (32-36); Mean Corpuscular Volume 91.8 fL (80-94); Platelet Count 186 K/mm3 (150-450); RBC Distribution Width SD 43.9 fl (35.1-43.9); Red Blood Count 4.73 M/mm3 (4.6-6.2); White Blood Count 6.7 K/mm3 (4.4-11.0)
[2020-09-22 14:14] LABS: Anion Gap 4 (5-15); BUN 19 mg/dL (7-18); BUN/Creat Ratio 19.2 RATIO (10-20); Calcium,Total 8.6 mg/dL (8.5-10.1); Chloride 108 mmol/L (98-107); Creatinine, Serum 0.99 mg/dL (0.70-1.30); EST Glomerular Filtration Rate 78 mL/min (>60); Est Glom Filt Rate - Afr Amer 95 mL/min (>60); Estimated Creatinine Clearance 76.11 ml/min; Glucose 95 mg/dL (74-106); Potassium 3.8 mmol/L (3.5-5.1); Sodium Level 140 mmol/L (136-145)
[2020-09-22 14:16] LABS: International Normalized Ratio 2.2; Prothrombin Time (Protime)PT. 23.3 SECONDS (11.7-14.9)
[2020-09-22 14:25] LABS: Hemoglobin A1c 5.3 % (3.8-5.6)
--- NOTE | 2020-09-22 14:32 | NURSING ---
wound photo: right medial foot
--- NOTE | 2020-09-22 14:33 | NURSING ---
wound photo: right dorsal foot
--- NOTE | 2020-09-22 14:34 | NURSING ---
wound photo: right lateral foot
[2020-09-22] MEDS: 0.9% Saline Lock 10 ML Syringe IV (15:47)
[2020-09-22 15:51] VITALS: BP 154/77; PULSE 59; RESP 18; TEMP 36.6; O2SAT 98
[2020-09-22 17:04] LABS: M R Staph aureus DNA By PCR Negative (Negative); Probe Check PASS; Staph aureus DNA By PCR POSITIVE (Negative)
[2020-09-22 17:16] LABS: Bedside Glucose 84 mg/dL (70-110)
[2020-09-22] MEDS: Gabapentin 300 MG Capsule 900 MG PO (17:38)
--- NOTE | 2020-09-22 18:02 | ART_ITS ---
Reason For Study: RIGHT FOOT ULCER, CELLULITIS Procedure A bilateral lower extremity continuous wave Doppler with analog waveform analysis and ankle brachial indexes. Left Segmental Pressures Left brachial= NO BP D/T IV SITE.mmHg. Left posterior tibial artery = 180mmHg. Left dorsalis pedis artery = 172mmHg. Left digit = 255 mmHg. The left posterior tibial artery waveforms are triphasic. The left dorsalis pedis waveforms are triphasic. Right Segmental Pressures Right brachial= 123mmHg. Right posterior tibial artery = 168mmHg. Right dorsalis pedis artery = 160mmHg. Right digit = 98 mmHg. The right posterior tibial artery waveforms are triphasic. The right dorsalis pedis waveforms are triphasic. Indices The right ankle brachial index by the posterior tibial artery is 1.37. The right ankle brachial index by the dorsalis pedis is 1.30. The right digital-brachial index is 0.80. The left ankle brachial index by the posterior tibial artery is 1.46. The left ankle brachial index by the dorsalis pedis is 1.40. The left digital-brachial index is -NC-. VL/Ankle Brachial Index Interpretation Summary Triphasic Doppler waveforms are noted at ankle level bilaterally. Pulse-volume recordings appear satisfactory at ankle and digital levels bilaterally. The resting right ankle-b rachial index is normal. The resting left ankle-brachial index is supra-normal. The right digita l-brachial index is normal. The left digital-brachial index could not be determined due to the non- compressibility of the vasculature. Arterial flow appears normal at ankle level bilaterally, and at digital level o n the right. There is evidence of arterial calcification at ankle and digital level on the left, with out evidence of arterial occlusive disease. Ordering Physician: Gerber Barnard Referring Physician: Humza Guevara Performed By: Bobbi Wu RVT, RDCS
[2020-09-22] MEDS: Atorvastatin Calcium 40 MG Tablet PO (21:09)
[2020-09-22 21:25] LABS: Bedside Glucose 119 mg/dL (70-110)
[2020-09-22 21:49] VITALS: BP 134/78; PULSE 59; RESP 16; TEMP 36.7; O2SAT 96
[2020-09-23] VITALS: PULSE 59
[2020-09-23 03:50] VITALS: BP 159/89; PULSE 60; RESP 16; TEMP 36.7; O2SAT 97
[2020-09-23 06:14] LABS: Absolute Lymphocyte Count 1.19 X10^3/uL (0.83-4.51); Absolute Neutrophil Count 5.1 X10^3/uL (2.0-7.7); Basophil# 0.04 X10^3/uL; Basophil% 0.5 % (0-1); Eosinophil# 0.17 X10^3/uL; Eosinophils% 2.3 % (0-5); Hematocrit 45.8 % (40-54); Hemoglobin 14.7 g/dL (13.0-16.5); Lymphocyte # 1.19 X10^3/ul (0.83-4.51); Lymphocyte % 16.1 % (19-41); Mean Corp Hgb Conc 32.1 g/dL (32-36); Mean Corpuscular Hgb 29.5 pg (27.0-32.0); Mean Corpuscular Volume 91.8 fL (80-94); Mean Platelet Vol. 11.1 fl (6.2-12.0); Monocyte# 0.87 X10^3/uL; Monocyte% 11.8 % (0-10); NRBC Flagged by Analyzer 0 % (0-5); Neutrophil # 5.11 X10^3/uL (2.7-7.7); Neutrophil % 69.2 % (47-70); Platelet Count 182 K/mm3 (150-450); RBC Distribution Width CV 13.1 % (11.6-14.6); Red Blood Count 4.99 M/mm3 (4.6-6.2); White Blood Count 7.4 K/mm3 (4.4-11.0)
[2020-09-23 06:23] LABS: International Normalized Ratio 2.1
[2020-09-23 06:35] LABS: Anion Gap 6 (5-15); BUN 16 mg/dL (7-18); BUN/Creat Ratio 16.3 RATIO (10-20); Calcium,Total 8.3 mg/dL (8.5-10.1); Chloride 108 mmol/L (98-107); Creatinine, Serum 0.98 mg/dL (0.70-1.30); EST Glomerular Filtration Rate 79 mL/min (>60); Est Glom Filt Rate - Afr Amer 96 mL/min (>60); Estimated Creatinine Clearance 76.89 ml/min; Glucose 101 mg/dL (74-106); Sodium Level 139 mmol/L (136-145)
[2020-09-23 06:36] LABS: Bedside Glucose 100 mg/dL (70-110)
[2020-09-23] MEDS: Acetaminophen 325 MG Tablet 650 MG PO (06:36)
[2020-09-23] MEDS: Amiodarone 200 MG Tablet 100 MG PO (08:28)
[2020-09-23] MEDS: Tamsulosin HCl 0.4 MG Capsule PO (08:28)
[2020-09-23] MEDS: Gabapentin 300 MG Capsule 900 MG PO ×3 (08:29→17:20)
[2020-09-23] MEDS: Enoxaparin 40 MG/0.4 ML Syringe SC (08:29)
[2020-09-23] MEDS: Multivitamins,Therapeutic Tablet 1 TABLET PO (08:29)
[2020-09-23] MEDS: Sertraline 100 MG Tablet PO (08:29)
[2020-09-23 09:50] VITALS: BP 150/79; PULSE 61; RESP 18; TEMP 36.6; O2SAT 95
--- NOTE | 2020-09-23 10:03 | NURSING ---
According to hospitalist, Dr Rosales will see patient today and will consult other podiatry group to follow patient through the weekend if needed.
--- NOTE | 2020-09-23 10:24 | PN_ITS ---
Subjective: Patient seen and examined. Denies fever, chills. Right foot dressing intact. CT without abscess. - Physical Exam Vitals/I&O's: Vital Signs Temp Pulse Resp BP Pulse Ox 98.1 F 60 16 159/89 H 97 09/23/20 03:50 09/23/20 03:50 09/23/20 03:50 09/23/20 03:50 09/23/20 03:50 Oxygen Delivery Method Room Air Weight: 220 lb 7.396 oz Body Mass Index (BMI) 28.3 Intake and Output for Last 24 Hours 09/21/20 09/22/20 09/23/20 23:59 23:59 23:59 Intake Total 50.75 / 50.75 450 / 450 Output Total 200 / 200 425 / 425 Balance -149.25 / -149.25 25 / General: Alert, Oriented x3, Cooperative HEENT: Atraumatic, PERRLA, EOMI, Normocephalic Neck: Supple, No JVD, Negative Carotid Bruits Lungs: Clear to auscultation, Normal air movement Cardiovascular: Regular rate, No murmurs Abdomen: Bowel Sounds Present, Soft, Non Tender Extremities: No clubbing, No cyanosis, No edema, Capillary Refill Less than 3 Seconds Skin: No rashes, No breakdown, - - Right foot wounds, erythema-dressing intact Musculoskeletal: No Tenderness to Palpation of Joints or Extremities Neurological: Cranial nerves II-XII grossly intact, Neuro grossly intact Psych/Mental Status: Normal Affect, Appropriate Microbiology Past 72 Hours 09/22/20 14:00 Wound - Right Foot Gram Stain - Final Laboratory Results 09/22/20 13:52: WBC 6.7, RBC 4.73, Hgb 14.2, Hct 43.4, MCV 91.8, MCH 30.0, MCHC 32.7, RDW Std Deviation 43.9, RDW Coeff of Norberto 13.0, Plt Count 186, MPV 11.0 09/22/20 13:52: Sodium 140, Potassium 3.8, Chloride 108 H, Carbon Dioxide 28.0, Anion Gap 4 L, BUN 19 H, Creatinine 0.99, Estim Creat Clear Calc 76.11, Est GFR (MDRD) Af Amer 95, Est GFR (MDRD) Non-Af 78, BUN/Creatinine Ratio 19.2, Glucose 95, Calcium 8.6 09/22/20 13:52: PT 23.3 H, INR 2.2 09/22/20 13:52: Hemoglobin A1c 5.3 09/22/20 14:00: S.aureus Protein A PCR POSITIVE H, MRSA (PCR) Negative 09/22/20 17:10: POC Glucose 84 09/22/20 21:01: POC Glucose 119 H 09/23/20 05:43: WBC 7.4, RBC 4.99, Hgb 14.7, Hct 45.8, MCV 91.8, MCH 29.5, MCHC 32.1, RDW Std Deviation 44.0 H, RDW Coeff of Norberto 13.1, Plt Count 182, MPV 11.1, Immature Gran % (Auto) 0.100, Neut % (Auto) 69.2, Lymph % (Auto) 16.1 L, [place] % (Auto) 11.8 H, Eos % (Auto) 2.3, Baso % (Auto) 0.5, Absolute Neuts (auto) 5.1, Absolute Lymphs (auto) 1.19, Nucleated RBC % 0 09/23/20 05:43: Sodium 139, Potassium 4.0, Chloride 108 H, Carbon Dioxide 25.0, Anion Gap 6, BUN 16, Creatinine 0.98, Estim Creat Clear Calc 76.89, Est GFR (MDRD) Af Amer 96, Est GFR (MDRD) Non-Af 79, BUN/Creatinine Ratio 16.3, Glucose 101, Calcium 8.3 L 09/23/20 05:43: PT 23.0 H, INR 2.1 09/23/20 06:26: POC Glucose 100 Current Medications Acetaminophen (Acetaminophen 325 Mg Tablet) 650 mg PO Q6H PRN PRN PRN Reason: Pain Score 1-10/Temp > 100.7 F Last Admin: 09/23/20 06:36 Dose: 650 mg Documented by: Amiodarone HCl (Amiodarone 200 Mg Tablet) [facility] Last Admin: 09/23/20 08:28 Dose: 100 mg Documented by: Atorvastatin Calcium (Atorvastatin Calcium 40 Mg Tablet) 40 mg PO QHS [facility] Last Admin: 09/22/20 21:09 Dose: 40 mg Documented by: Enoxaparin Sodium (Enoxaparin 40 Mg/0.4 Ml Syringe) 40 mg SC DAILY [facility] Last Admin: 09/23/20 08:29 Dose: 40 mg Documented by: Gabapentin (Gabapentin 300 Mg Capsule) 900 mg PO TIDCM [facility] Last Admin: 09/23/20 08:29 Dose: 900 mg Documented by: Sodium Chloride () 250 mls @ 15 mls/hr IV .[id number] PRN PRN Reason: Saline Flush Last Admin: 09/22/20 17:37 Dose: 15 mls/hr Documented by: Piperacillin Sod/Tazobactam (Sod 3.375 gm/ Sodium Chloride) 50 mls @ 12.5 mls/hr IV Q8 [facility] Last Admin: 09/23/20 06:28 Dose: 12.5 mls/hr Documented by: Insulin Human Lispro (Insulin Lispro 100 Unit/Ml Insuln.Pen) 0 unit SC [facility]; Protocol Last Admin: 09/23/20 06:28 Dose: Not Given Documented by: Multivitamins (Multivitamins,Therapeutic Tablet) [facility] Last Admin: 09/23/20 08:29 Dose: 1 tablet Documented by: Ondansetron HCl (Ondansetron 4 Mg/2 Ml Vial) 4 mg IV Q8H PRN PRN PRN Reason: NAUSEA/VOMITING Oxycodone HCl (Oxycodone 5 Mg Tablet) 5 mg PO Q4H PRN PRN PRN Reason: Pain Score 4-5 Psyllium Hydrophilic Mucilloid (Psyllium 1 Packet) 1 packet PO DAILY [facility] Sertraline HCl (Sertraline 100 Mg Tablet) 100 mg PO DAILY [facility] Last Admin: 09/23/20 08:29 Dose: 100 mg Documented by: Sodium Chloride (0.9% Saline Lock 10 Ml Syringe) 10 - 40 ml IV UD PRN PRN Reason: SALINE FLUSH Last Admin: 09/22/20 15:47 Dose: 10 ml Documented by: Tamsulosin HCl (Tamsulosin Hcl 0.4 Mg Capsule) 0.4 mg [facility] Last Admin: 09/23/20 08:28 Dose: 0.4 mg Documented by: Warfarin Sodium (Warfarin 4 Mg Tablet) 2 mg PO SuTuThSa@1700 [facility] Last Admin: 09/22/20 17:39 Dose: 2 mg Documented by: Warfarin Sodium (Warfarin 4 Mg Tablet) 4 mg PO MoWeFr@1700 [facility] Medical Necessity - Tobacco Use Smoking Status: Never smoker Assessment/Plan All Active Problems (Last Reviewed 07/25/20 @ 10:22 by Mildred Trevizo PA, PA) Dizziness (Resolved) Fatigue (Resolved) Orthostatic hypotension (Ruled-out) 1. Right foot wounds with associated cellulitis- Podiatry consult. IV Zosyn. Wound RN consult. MRSA PCR negative. MSSA positive. Vascular studies ordered. PT/OT. CT without abscess. Await final cultures. 2. Sick sinus syndrome status post pacemaker placement 3. Paroxysmal atrial fibrillation-on amiodarone, Coumadin. 4. Hypertension-stable, does not appear to be on regimen. 5. Hyperlipidemia- on statin. 6. 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 Accu-Cheks with sliding scale insulin. Continue gabapentin. 7. BPH-continue Flomax. 8. Depression-on sertraline. DVT prophylaxis-Coumadin This patient was seen by ALINE Mora under the supervision of Dr. Barnard.
[2020-09-23] MEDS: Psyllium 1 PACKET PO (11:18)
[2020-09-23 11:30] LABS: Bedside Glucose 87 mg/dL (70-110)
--- NOTE | 2020-09-23 14:55 | CASEMGMT ---
VON REEDER Assessment: Face to Face with pt for initial transition planning/care coordination assessment. RN LILLI introduced self and role at [facility], pt voices understanding and consents to assessment. Pt is A/O x4 and answers all questions appropriately at this time. Pt sitting up in bed in no distress. Care providers, pharmacy, and demographics verified/updated. Admitting Dx: R foot wound with cellulitis PCP: Ismael Specialists: dayanna Rick Preferred Pharmacy: [facility] Insurance: [facility] Prescription Benefit: yes LW/HPOA: Pt denies having a LW/DPOA. LNOK: , Josefina [place]ows Living Arrangements: Pt lives with in a mobile home with no steps to enter through garage. Pt reports being I in ADL's and denies concerns at home. Transportation: Pt drives self and denies issues with transportation. DME/HHC/SNF: Pt reports he has a walker, cane and wheelchair at home. He has had previous HHC but is unsure of the name of the agency. Pt denies any SNF stays. Discussed with pt about having HHC for dressing changes. Pt states his can do the dressing changes and does not want HHC. Pt states no concerns with going home at time of dc. Pt states no further concerns/needs. CM to follow for HHC if patient's unable to complete dressing changes. Advised pt to ask CM if any further question/concerns/needs arise, voices understanding. Pt Goal: Home Plan: Home with family support.
[2020-09-23 16:00] VITALS: BP 127/80; PULSE 55; RESP 18; TEMP 36.3; O2SAT 94
--- NOTE | 2020-09-23 16:35 | PCM.PN.SRG ---
Subjective: patient is seen at bedside this afternoon. denies any pain to his right foot. denies n/v/f/c. now on zosyn and tolerating. has CT to review. vascular studies still pending. Objective: Patient is alert and orientated x 3. he does not appear in any distress vascular: DP and PT pulses are nonpalpable. CFT is less than 5 seconds. Skin temperature is warm to warm. Prior erythema outlined on right foot appears to be decreasing. no calf pain present. derm: large superficial wound of lateral right foot and medial aspect of right foot. no fluctuance noted. erythema appears to be decreasing in size. mostly granular appearance to both wounds with slight fibrotic slough. m/s: mild swelling to right midfoot. no swelling of right calf. no calf pain noted. - Physical Exam Vitals/I&O's: Vital Signs Temp Pulse Resp BP Pulse Ox 97.8 F 61 18 150/79 H 95 09/23/20 09:50 09/23/20 09:50 09/23/20 09:50 09/23/20 09:50 09/23/20 09:50 Oxygen Delivery Method Room Air Weight: 100 kg Body Mass Index (BMI) 28.3 Intake and Output for Last 24 Hours 09/21/20 09/22/20 09/23/20 23:59 23:59 23:59 Intake Total 50.75 / 50.75 750 / 750 Output Total 200 / 200 625 / 625 Balance -149.25 / -149.25 125 / 125 Microbiology Past 72 Hours 09/22/20 14:00 Wound - Right Foot Gram Stain - Final 09/22/20 14:00 Wound - Right Foot Wound Culture - Preliminary No growth-Final to follow Laboratory Results 09/22/20 14:00: S.aureus Protein A PCR POSITIVE H, MRSA (PCR) Negative 09/22/20 17:10: POC Glucose 84 09/22/20 21:01: POC Glucose 119 H 09/23/20 05:43: WBC 7.4, RBC 4.99, Hgb 14.7, Hct 45.8, MCV 91.8, MCH 29.5, MCHC 32.1, RDW Std Deviation 44.0 H, RDW Coeff of Norberto 13.1, Plt Count 182, MPV 11.1, Immature Gran % (Auto) 0.100, Neut % (Auto) 69.2, Lymph % (Auto) 16.1 L, [place] % (Auto) 11.8 H, Eos % (Auto) 2.3, Baso % (Auto) 0.5, Absolute Neuts (auto) 5.1, Absolute Lymphs (auto) 1.19, Nucleated RBC % 0 09/23/20 05:43: Sodium 139, Potassium 4.0, Chloride 108 H, Carbon Dioxide 25.0, Anion Gap 6, BUN 16, Creatinine 0.98, Estim Creat Clear Calc 76.89, Est GFR (MDRD) Af Amer 96, Est GFR (MDRD) Non-Af 79, BUN/Creatinine Ratio 16.3, Glucose 101, Calcium 8.3 L 09/23/20 05:43: PT 23.0 H, INR 2.1 09/23/20 06:26: POC Glucose 100 09/23/20 11:20: POC Glucose 87 09/23/20 16:29: POC Glucose Pending Current Medications Acetaminophen (Acetaminophen 325 Mg Tablet) 650 mg PO Q6H PRN PRN PRN Reason: Pain Score 1-10/Temp > 100.7 F Last Admin: 09/23/20 06:36 Dose: 650 mg Documented by: Amiodarone HCl (Amiodar[facility] 200 Mg Tablet) [facility] Last Admin: 09/23/20 08:28 Dose: 100 mg Documented by: Atorvastatin Calcium (Atorvastatin Calcium 40 Mg Tablet) 40 mg PO QHS [facility] Last Admin: 09/22/20 21:09 Dose: 40 mg Documented by: Enoxaparin Sodium (Enoxaparin 40 Mg/0.4 Ml Syringe) 40 mg SC DAILY [facility] Last Admin: 09/23/20 08:29 Dose: 40 mg Documented by: Gabapentin (Gabapentin 300 Mg Capsule) 900 mg PO TIDCM [facility] Last Admin: 09/23/20 11:25 Dose: 900 mg Documented by: Sodium Chloride () 250 mls @ 15 mls/hr IV .[id number] PRN PRN Reason: Saline Flush Last Admin: 09/23/20 11:20 Dose: 15 mls/hr Documented by: Piperacillin Sod/Tazobactam (Sod 3.375 gm/ Sodium Chloride) 50 mls @ 12.5 mls/hr IV Q8 [facility] Last Admin: 09/23/20 13:14 Dose: 12.5 mls/hr Documented by: Insulin Human Lispro (Insulin Lispro 100 Unit/Ml Insuln.Pen) 0 unit SC [facility]; Protocol Last Admin: 09/23/20 11:22 Dose: Not Given Documented by: Multivitamins (Multivitamins,Therapeutic Tablet) [facility] Last Admin: 09/23/20 08:29 Dose: 1 tablet Documented by: Ondansetron HCl (Ondansetron 4 Mg/2 Ml Vial) 4 mg IV Q8H PRN PRN PRN Reason: NAUSEA/VOMITING Oxycodone HCl (Oxycodone 5 Mg Tablet) 5 mg PO Q4H PRN PRN PRN Reason: Pain Score 4-5 Psyllium Hydrophilic Mucilloid (Psyllium 1 Packet) 1 packet PO DAILY [facility] Last Admin: 09/23/20 11:18 Dose: 1 packet Documented by: Sertraline HCl (Sertraline 100 Mg Tablet) 100 mg PO DAILY [facility] Last Admin: 09/23/20 08:29 Dose: 100 mg Documented by: Sodium Chloride (0.9% Saline Lock 10 Ml Syringe) 10 - 40 ml IV UD PRN PRN Reason: SALINE FLUSH Last Admin: 09/22/20 15:47 Dose: 10 ml Documented by: Tamsulosin HCl (Tamsulosin Hcl 0.4 Mg Capsule) 0.[facility] Last Admin: 09/23/20 08:28 Dose: 0.4 mg Documented by: Warfarin Sodium (Warfarin 4 Mg Tablet) 2 mg PO SuTuThSa@1700 [facility] Last Admin: 09/22/20 17:39 Dose: 2 mg Documented by: Warfarin Sodium (Warfarin 4 Mg Tablet) 4 mg PO MoWeFr@1700 [facility] Medical Necessity - Tobacco Use Smoking Status: Never smoker Assessment/Plan All Active Problems (Last Reviewed 07/25/20 @ 10:22 by Mildred MCKEON, PA) Dizziness (Resolved) Fatigue (Resolved) Orthostatic hypotension (Ruled-out) Patient was examined today this afternoon at bedside with nursing staff. his cellulitis does appear to be improving. I reviewed CT scan with patient and . there is no evidence of abscess. 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 At this time, his cellulitis is improving and cultures are showing mssa. I would continue with zosyn for a few days and hopefully, can discharge on oral medication. I would like to continue with betadine to wounds with adaptic and light compression to right foot and leg. Surgical shoe is necessary and I would allow partial weightbearing to heel with use of walker. boot would be ideal but with his swelling, it may be difficult to fit his foot into pneumatic boot. I am out of town this weekend and back Saturday Evening. I will ask Dr. Wiley Williamson to see patient to monitor progress of wounds. I did inform Dr. Williamson of plan of consult. if patient is discharged this weekend, he will f/u with me next week. if discharged, I would continue with adaptic, betadine and light compression. Any issues, nurses can contact me at [phone].
[2020-09-23 16:36] LABS: Bedside Glucose 108 mg/dL (70-110)
[2020-09-23 20:57] VITALS: PULSE 56
[2020-09-23] MEDS: Atorvastatin Calcium 40 MG Tablet PO (21:34)
[2020-09-23 21:41] LABS: Bedside Glucose 103 mg/dL (70-110)
[2020-09-23 22:00] VITALS: BP 136/64; PULSE 56; RESP 16; TEMP 36.6; O2SAT 97
[2020-09-24 04:00] VITALS: BP 132/85; PULSE 62; RESP 16; TEMP 36.6; O2SAT 97
[2020-09-24 06:55] LABS: Bedside Glucose 101 mg/dL (70-110)
[2020-09-24 07:29] LABS: International Normalized Ratio 2.2; Prothrombin Time (Protime)PT. 23.3 SECONDS (11.7-14.9)
[2020-09-24 07:42] LABS: Anion Gap 6 (5-15); BUN 21 mg/dL (7-18); BUN/Creat Ratio 21.1 RATIO (10-20); Calcium,Total 8.7 mg/dL (8.5-10.1); Chloride 106 mmol/L (98-107); EST Glomerular Filtration Rate 78 mL/min (>60); Est Glom Filt Rate - Afr Amer 94 mL/min (>60); Estimated Creatinine Clearance 75.35 ml/min; Glucose 95 mg/dL (74-106); Sodium Level 138 mmol/L (136-145)
[2020-09-24 07:56] VITALS: BP 152/83; PULSE 61; RESP 18; TEMP 36.6; O2SAT 100
[2020-09-24] MEDS: Sertraline 100 MG Tablet PO (08:02)
[2020-09-24] MEDS: Gabapentin 300 MG Capsule 900 MG PO ×2 (08:02→11:12)
[2020-09-24] MEDS: Amiodarone 200 MG Tablet 100 MG PO (08:02)
[2020-09-24] MEDS: Tamsulosin HCl 0.4 MG Capsule PO (08:02)
[2020-09-24] MEDS: Multivitamins,Therapeutic Tablet 1 TABLET PO (08:02)
--- NOTE | 2020-09-24 09:14 | CON.PCM_ITS ---
Reason for Consult Date of Consultation: 09/24/20 Reason for Consultation: Right foot wounds with cellulitis History of Present Illness: The patient is a 75 year old gentleman with history of diabetes and peripheral neuropathy who developed right foot wounds due to rubbing in a pair of boots. Patient developed infection to the wounds and has been admitted for further treatment and he has been on IV antibiotics - Zosyn. Foot has been improving. CT scan has been obtained which is negative for abscess. Patient had noninvasive lower extremity arterial studies which demonstrated good flow to feet. Culture of the wounds has been obtained from right foot and no grown so far, MRSA DNA PCR was negative for MRSA but positive for s. aureus. 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 Patient denies any fever, chills, nausea or vomiting, no calf pain, or any other complaints. Patient has a pacemaker on anticoagulation. Past Medical History Past Medical History (Chronic Problems): Chronic Problems (Last Reviewed 07/25/20 @ 10:22 by Mildred MCKEON PA) Frequent headaches (Chronic) History of permanent cardiac pacemaker placement (Chronic 03/02/19) Mobitz type 2 second degree heart block (Chronic) Sick sinus syndrome with tachycardia (Chronic) Paroxysmal atrial tachycardia (Chronic) Paroxysmal atrial fibrillation (Chronic) Essential hypertension (Chronic) Hyperlipidemia (Chronic) Medical History: Medical History (Last Reviewed 07/25/20 @ 10:22 by Mildred MCKEON PA) Mobitz type 2 second degree heart block (Chronic) I44.1 Sick sinus syndrome with tachycardia (Chronic) I49.5 Paroxysmal atrial tachycardia (Chronic) I47.1 Paroxysmal atrial fibrillation (Chronic) I48.0 Essential hypertension (Chronic) I10 Hyperlipidemia (Chronic) E78.5 Anxiety and depression F41.9, F32.9 BPH (benign prostatic hyperplasia) N40.0 Chronic laryngitis J37.0 Diverticula of colon K57.30 GERD (gastroesophageal reflux disease) K21.9 Gout M10.9 Type 2 diabetes mellitus E11.9 Fatigue (Resolved) R53.83 Allergies No Known Allergies Allergy (Verified 09/19/20 18:28) Home Medications: Ambulatory Orders Medication Instructions Recorded gabapentin 300 mg capsule 900 mg PO TID 01/29/18 metformin 500 mg tablet 500 mg PO DAILY tab 01/29/18 multivitamin 1 tab PO DAILY 01/29/18 sertraline 100 mg tablet 100 mg PO DAILY 01/29/18 tamsulosin 0.4 mg capsule 0.4 mg PO DAILY 01/29/18 atorvastatin 40 mg tablet 40 mg PO QHS 10/17/18 warfarin 4 mg tablet 4 mg PO QMWF 04/21/19 amiodarone 200 mg tablet 100 mg PO DAILY tab 01/21/20 Warfarin Sodium 2 mg PO SUTUTHSA 09/19/20 Psyllium [Metamucil] 1 packet PO DAILY 09/22/20 Amox/Clavulanate Tablet [Augmentin 875 mg PO Q12H #14 tab 09/24/20 Tablet] Gauze Bandage [Kerlix] 1 each TP DAILY #10 bandage 09/24/20 Povidone-Iodine [Betadine] 237 ml TP DAILY #1 bottle 09/24/20 Surgical History: Surgical History (Last Reviewed 09/22/20 @ 13:37 by Tessa Rodriguez NP, [employer]INE [employer]PERATOR-C) History of permanent cardiac pacemaker placement (Chronic) Onset Date: 03/02/19 Z95.0 Amputated toe S98.139A History of bilateral knee replacement Z96.653 History of cardioversion Onset Date: 02/17/18 Z98.890 04/15/14, 02/17/2018 Previous back surgery Z98.890 Psychiatric History: No pertinent psych hx Lives: Spouse/ Significant Other Smoking Status: Never smoker Alcohol: None Drugs: None - *Family History Maternal Family History: Family History (Last Reviewed 07/25/20 @ 10:22 by Mildred MCKEON, PA) Mother Heart disease Father Heart disease Brother Heart disease Brother Heart disease History Items: Diabetes, Heart Disease Paternal Family History: Family History (Last Reviewed 07/25/20 @ 10:22 by Mildred MCKEON, PA) Mother Heart disease Father Heart disease Brother Heart disease Brother Heart disease History Items: Diabetes, Heart Disease - Physical Exam Vitals/I&O's: Vital Signs Temp Pulse Resp BP Pulse Ox 97.8 F 61 18 152/83 H 100 09/24/20 07:56 09/24/20 07:56 09/24/20 07:56 09/24/20 07:56 09/24/20 07:56 Oxygen Delivery Method Room Air Weight: 100 kg Body Mass Index (BMI) 28.3 Intake and Output for Last 24 Hours 09/22/20 09/23/20 09/24/20 23:59 23:59 23:59 Intake Total 50.75 / 50.75 1400 / 1400 775 / 775 Output Total 200 / 200 925 / 925 1000 / 1000 Balance -149.25 / -149.25 475 / 475 -225 / -225 General: Alert, Oriented x3, Cooperative, No apparent distress Extremities: No cyanosis, Capillary Refill Less than 3 Seconds, No Calf Tenderness, - - Right foot with 3 ulcerations down to subcutaneous tissue layer, cellulitis significantly improved, wounds healing with no visible abscess, no malodor, no crepitus, no fluctuance, no streaking, tissues overall healthy and viable. No acute ischemia to the right foot. No open lesions left foot. Skin: - - No evidence of infection left foot. Neurological: - - Noted chronic peripheral neuropathy bilateral foot. Chronic stable charcot right foot. Psych/Mental Status: Normal Affect, Appropriate, Alert and oriented to time, place, person, mood and affect Microbiology Past 72 Hours 09/22/20 14:00 Wound - Right Foot Gram Stain - Final 09/22/20 14:00 Wound - Right Foot Wound Culture - Preliminary No growth-Final to follow Laboratory Results 09/23/20 11:20: POC Glucose 87 09/23/20 16:29: POC Glucose 108 09/23/20 21:35: POC Glucose 103 09/24/20 06:29: POC Glucose 101 09/24/20 07:00: PT 23.3 H, INR 2.2 09/24/20 07:00: Sodium 138, Potassium 4.0, Chloride 106, Carbon Dioxide 26.0, Anion Gap 6, BUN 21 H, Creatinine 1.00, Estim Creat Clear Calc 75.35, Est GFR (MDRD) Af Amer 94, Est GFR (MDRD) Non-Af 78, BUN/Creatinine Ratio 21.1 H, Glucose 95, Calcium 8.7 Current Medications Acetaminophen (Acetaminophen 325 Mg Tablet) 650 mg PO Q6H PRN PRN PRN Reason: Pain Score 1-10/Temp > 100.7 F Last Admin: 09/23/20 06:36 Dose: 650 mg Documented by: Amiodarone HCl (Amiodarone 200 Mg Tablet) 100 mg PO DAILYCM [facility] Last Admin: 09/24/20 08:02 Dose: 100 mg Documented by: Atorvastatin Calcium (Atorvastatin Calcium 40 Mg Tablet) 40 mg PO QHS [facility] Last Admin: 09/23/20 21:34 Dose: 40 mg Documented by: Enoxaparin Sodium (Enoxaparin 40 Mg/0.4 Ml Syringe) 40 mg SC DAILY [facility] Last Admin: 09/23/20 08:29 Dose: 40 mg Documented by: Gabapentin (Gabapentin 300 Mg Capsule) 900 mg PO TIDCM [facility] Last Admin: 09/24/20 08:02 Dose: 900 mg Documented by: Sodium Chloride () 250 mls @ 15 mls/hr IV .[id number] PRN PRN Reason: Saline Flush Last Admin: 09/23/20 11:20 Dose: 15 mls/hr Documented by: Piperacillin Sod/Tazobactam (Sod 3.375 gm/ Sodium Chloride) 50 mls @ 12.5 mls/hr IV Q8 [facility] Last Admin: 09/24/20 06:24 Dose: 12.5 mls/hr Documented by: Insulin Human Lispro (Insulin Lispro 100 Unit/Ml Insuln.Pen) 0 unit SC [facility]; Protocol Last Admin: 09/24/20 06:29 Dose: Not Given Documented by: Multivitamins (Multivitamins,Therapeutic Tablet) [facility] Last Admin: 09/24/20 08:02 Dose: 1 tablet Documented by: Ondansetron HCl (Ondansetron 4 Mg/2 Ml Vial) 4 mg IV Q8H PRN PRN PRN Reason: NAUSEA/VOMITING Oxycodone HCl (Oxycodone 5 Mg Tablet) 5 mg PO Q4H PRN PRN PRN Reason: Pain Score 4-5 Psyllium Hydrophilic Mucilloid (Psyllium 1 Packet) 1 packet PO DAILY [facility] Last Admin: 09/23/20 11:18 Dose: 1 packet Documented by: Sertraline HCl (Sertraline 100 Mg Tablet) 100 mg PO DAILY [facility] Last Admin: 09/24/20 08:02 Dose: 100 mg Documented by: Sodium Chloride (0.9% Saline Lock 10 Ml Syringe) 10 - 40 ml IV UD PRN PRN Reason: SALINE FLUSH Last Admin: 09/22/20 15:47 Dose: 10 ml Documented by: Tamsulosin HCl (Tamsulosin Hcl 0.4 Mg Capsule) 0.4 mg PO DAILYCM [facility] Last Admin: 09/24/20 08:02 Dose: 0.4 mg Documented by: Warfarin Sodium (Warfarin 4 Mg Tablet) 2 mg PO SuTuThSa@1700 [facility] Last Admin: 09/22/20 17:39 Dose: 2 mg Documented by: Warfarin Sodium (Warfarin 4 Mg Tablet) 4 mg PO MoWeFr@1700 [facility] Last Admin: 09/23/20 17:20 Dose: 4 mg Documented by: Assessment/Plan All Active Problems (Last Reviewed 07/25/20 @ 10:22 by Mildred Trevizo PA, PA) Dizziness (Resolved) Fatigue (Resolved) Orthostatic hypotension (Ruled-out) Right foot ulcerations down to subcutaneous tissue Cellulitis right foot - improving Charcot neuroarthropathy - chronic Diabetes with peripheral neuropathy Other comorbidities Reviewed diagnostic data. Reviewed CT scan and per findings no abscess. Reviewed labs and patient does not have an elevated WBC. Patient is afebrile. The foot appears much improved - compared to pictures and description, also patient and his both think it looks better, and I discussed with Dr. Barnard who agreed. The patient is stable. Reviewed LEAS which does not demonstrate arterial occlusion per vascular report. Reviewed culture results and no growth, but MRSA PCR was + for s. aureus, negative for MRSA. The patient has received several doses of IV antibiotics - Zosyn. The plan is for patient to be discharged home on Augmentin 875/125mg PO q 12 hours, along with good local wound care. Reviewed proper wound care with patient in detail and reviewed with patient's . Cleanse wounds with normal saline soln, apply betadine, adaptic, gauze and terrie - change daily. Patient to limit activity on foot as much as possible. Patient to follow up with Dr. Rosales on Saturday or Saturday in office - but sooner if needed. Patient and his agreed with plan
--- NOTE | 2020-09-24 09:47 | PCM.DC.POD ---
Discharge Activity: Use Walker Weight Bearing Status: Partial weight bearing - Limit weightbearing on right foot Call your doctor if your incision/area has: Continuous Slow Oozing, Sudden Increased Bleeding, Foul Smelling Discharge Call your doctor if you observe: Fever of 101 or Higher, Shortness of breath, Calf discomfort, Uncontrolled pain Cleanse incision/area with: - - Right foot wound care - change dressing every day 1. Cleanse wounds with normal saline solution 2. Apply betadine (providone iodine solution) to wounds 3. Apply adaptic non adherent, 4x4 gauze, and then gauze roll 4. Gently apply terrie bandage being sure not apply bandage to tight Allergies/Adverse Reactions: Allergies No Known Allergies Allergy (Verified 09/19/20 18:28) Medications to take at Discharge gabapentin 300 mg capsule 900 mg PO TID 01/29/18 metformin 500 mg tablet 500 mg PO DAILY tab 01/29/18 multivitamin 1 tab PO DAILY 01/29/18 sertraline 100 mg tablet 100 mg PO DAILY 01/29/18 tamsulosin 0.4 mg capsule 0.4 mg PO DAILY 01/29/18 atorvastatin 40 mg tablet 40 mg PO QHS 10/17/18 warfarin 4 mg tablet 4 mg PO QMWF 04/21/19 amiodarone 200 mg tablet 100 mg PO DAILY tab 01/21/20 Warfarin Sodium 2 mg PO SUTUTHSA 09/19/20 Psyllium [Metamucil] 1 packet PO DAILY 09/22/20 Amox/Clavulanate Tablet [Augmentin Tablet] 875 mg PO Q12H #14 tab 09/24/20 Gauze Bandage [Kerlix] 1 each TP DAILY #10 bandage 09/24/20 Povidone-Iodine [Betadine] 237 ml TP DAILY #1 bottle 09/24/20 The following prescriptions were given: Amox/Clavulanate Tablet [Augmentin Tablet] 875 mg PO Q12H #14 tab Transmission Status: Received by [id number] Povidone-Iodine [Betadine] 237 ml TP DAILY #1 bottle Gauze Bandage [Kerlix] 1 each TP DAILY #10 bandage Primary Care Physician: Humza Guevara MD [Primary Care Provider] - Test Results: Test results from this visit will be discussed in further detail at your follow-up appointment, if applicable. Please Follow Up With: Testrake,Yang, DPM - Please page Dr. Rosales if needed, if unable to reach Dr. Rosales may call Dr. Williamson at [phone] (cell) or [phone] (page through [facility]) When: Saturday09/26/2020 or Saturday09/27/2020, sooner if needed
--- NOTE | 2020-09-24 10:49 | PCM.PROGNOTE ---
Subjective: Patient seen and examined. Patient states redness on foot improved as well as drainage. Denies fever, chills. - Physical Exam Vitals/I&O's: Vital Signs Temp Pulse Resp BP Pulse Ox 97.8 F 61 18 152/83 H 100 09/24/20 07:56 09/24/20 07:56 09/24/20 07:56 09/24/20 07:56 09/24/20 07:56 Oxygen Delivery Method Room Air Weight: 220 lb 7.396 oz Body Mass Index (BMI) 28.3 Intake and Output for Last 24 Hours 09/22/20 09/23/20 09/24/20 23:59 23:59 23:59 Intake Total 50.75 / 50.75 1400 / 1400 775 / 775 Output Total 200 / 200 925 / 925 1000 / 1000 Balance -149.25 / -149.25 475 / 475 -225 / -225 General: Alert, Oriented x3, Cooperative HEENT: Atraumatic, PERRLA, EOMI, Normocephalic Neck: Supple, No JVD, Negative Carotid Bruits Lungs: Clear to auscultation, Normal air movement Cardiovascular: Regular rate, No murmurs Abdomen: Bowel Sounds Present, Soft, Non Tender, Non-Distended Extremities: No clubbing, No cyanosis, No edema, Capillary Refill Less than 3 Seconds Skin: No rashes, No breakdown, - - Right foot wounds, erythema-dressing intact Musculoskeletal: No Tenderness to Palpation of Joints or Extremities Neurological: Cranial nerves II-XII grossly intact, Neuro grossly intact Psych/Mental Status: Normal Affect, Appropriate Microbiology Past 72 Hours 09/22/20 14:00 Wound - Right Foot Gram Stain - Final 09/22/20 14:00 Wound - Right Foot Wound Culture - Preliminary No growth-Final to follow Laboratory Results 09/23/20 11:20: POC Glucose 87 09/23/20 16:29: POC Glucose 108 09/23/20 21:35: POC Glucose 103 09/24/20 06:29: POC Glucose 101 09/24/20 07:00: PT 23.3 H, INR 2.2 09/24/20 07:00: Sodium 138, Potassium 4.0, Chloride 106, Carbon Dioxide 26.0, Anion Gap 6, BUN 21 H, Creatinine 1.00, Estim Creat Clear Calc 75.35, Est GFR (MDRD) Af Amer 94, Est GFR (MDRD) Non-Af 78, BUN/Creatinine Ratio 21.1 H, Glucose 95, Calcium 8.7 Current Medications Acetaminophen (Acetaminophen 325 Mg Tablet) 650 mg PO Q6H PRN PRN PRN Reason: Pain Score 1-10/Temp > 100.7 F Last Admin: 09/23/20 06:36 Dose: 650 mg Documented by: Amiodarone HCl (Amiodarone 200 Mg Tablet) [facility] Last Admin: 09/24/20 08:02 Dose: 100 mg Documented by: Atorvastatin Calcium (Atorvastatin Calcium 40 Mg Tablet) 40 mg PO QHS [facility] Last Admin: 09/23/20 21:34 Dose: 40 mg Documented by: Enoxaparin Sodium (Enoxaparin 40 Mg/0.4 Ml Syringe) 40 mg SC DAILY [facility] Last Admin: 09/23/20 08:29 Dose: 40 mg Documented by: Gabapentin (Gabapentin 300 Mg Capsule) 900 mg PO TIDCM [facility] Last Admin: 09/24/20 08:02 Dose: 900 mg Documented by: Sodium Chloride () 250 mls @ 15 mls/hr IV .[id number] PRN PRN Reason: Saline Flush Last Admin: 09/23/20 11:20 Dose: 15 mls/hr Documented by: Piperacillin Sod/Tazobactam (Sod 3.375 gm/ Sodium Chloride) 50 mls @ 12.5 mls/hr IV Q8 [facility] Last Admin: 09/24/20 06:24 Dose: 12.5 mls/hr Documented by: Insulin Human Lispro (Insulin Lispro 100 Unit/Ml Insuln.Pen) 0 unit SC [facility]; Protocol Last Admin: 09/24/20 06:29 Dose: Not Given Documented by: Multivitamins (Multivitamins,Therapeutic Tablet) [facility] tablet [facility] Last Admin: 09/24/20 08:02 Dose: 1 tablet Documented by: Ondansetron HCl (Ondansetron 4 Mg/2 Ml Vial) 4 mg IV Q8H PRN PRN PRN Reason: NAUSEA/VOMITING Oxycodone HCl (Oxycodone 5 Mg Tablet) 5 mg PO Q4H PRN PRN PRN Reason: Pain Score 4-5 Psyllium Hydrophilic Mucilloid (Psyllium 1 Packet) 1 packet PO DAILY [facility] Last Admin: 09/23/20 11:18 Dose: 1 packet Documented by: Sertraline HCl (Sertraline 100 Mg Tablet) 100 mg PO DAILY [facility] Last Admin: 09/24/20 08:02 Dose: 100 mg Documented by: Sodium Chloride (0.9% Saline Lock 10 Ml Syringe) 10 - 40 ml IV UD PRN PRN Reason: SALINE FLUSH Last Admin: 09/22/20 15:47 Dose: 10 ml Documented by: Tamsulosin HCl (Tamsulosin Hcl 0.4 Mg Capsule) 0.4 mg PO [facility] Last Admin: 09/24/20 08:02 Dose: 0.4 mg Documented by: Warfarin Sodium (Warfarin 4 Mg Tablet) 2 mg PO SuTuThSa@1700 [facility] Last Admin: 09/22/20 17:39 Dose: 2 mg Documented by: Warfarin Sodium (Warfarin 4 Mg Tablet) 4 mg PO MoWeFr@1700 [facility] Last Admin: 09/23/20 17:20 Dose: 4 mg Documented by: Medical Necessity - Tobacco Use Smoking Status: Never smoker Assessment/Plan All Active Problems (Last Reviewed 07/25/20 @ 10:22 by Mildred Trevizo PA, PA) Dizziness (Resolved) Fatigue (Resolved) Orthostatic hypotension (Ruled-out) 1. Right foot wounds with associated cellulitis- Podiatry consult. IV Zosyn. Wound RN consult. MRSA PCR negative. MSSA positive. Vascular studies completed. PT/OT. CT without abscess. Wound culture with no growth. Plan for discharge 09/25/2020 on oral antibiotics to complete course. 2. Sick sinus syndrome status post pacemaker placement 3. Paroxysmal atrial fibrillation-on amiodarone, Coumadin. 4. Hypertension-stable, does not appear to be on regimen. 5. Hyperlipidemia- on statin. 6. 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 Accu-Cheks with sliding scale insulin. Continue gabapentin. 7. BPH-continue Flomax. 8. Depression-on sertraline. DVT prophylaxis-Coumadin This patient was seen by ALINE Mora under the supervision of Dr. Barnard.
[2020-09-24] MEDS: Psyllium 1 PACKET PO (11:12)
[2020-09-24] MEDS: Enoxaparin 40 MG/0.4 ML Syringe SC (11:12)
[2020-09-24 11:25] LABS: Bedside Glucose 138 mg/dL (70-110)
--- NOTE | 2020-09-24 12:28 | PCM.DC ---
- Discharge Diagnoses Current Active Problems: Current Active and Chronic Problems (Last Reviewed 07/25/20 @ 10:22 by Mildred MCKEON, PA) Frequent headaches (Chronic) History of permanent cardiac pacemaker placement (Chronic 03/02/19) Mobitz type 2 second degree heart block (Chronic) Sick sinus syndrome with tachycardia (Chronic) Paroxysmal atrial tachycardia (Chronic) Paroxysmal atrial fibrillation (Chronic) Essential hypertension (Chronic) Hyperlipidemia (Chronic) You will use the following diet at home:: Calorie/Carbohydrate Controlled (specify 1200, 1400, etc) Discharge Activity: Use Walker Weight Bearing Status: Partial weight bearing - Limit weightbearing on right foot Call your doctor if your incision/area has: Continuous Slow Oozing, Sudden Increased Bleeding, Foul Smelling Discharge Call your doctor if you observe: Fever of 101 or Higher, Shortness of breath, Calf discomfort, Uncontrolled pain Cleanse incision/area with: - - Right foot wound care - change dressing every day 1. Cleanse wounds with normal saline solution 2. Apply betadine (providone iodine solution) to wounds 3. Apply adaptic non adherent, 4x4 gauze, and then gauze roll 4. Gently apply terrie bandage being sure not apply bandage to tight Allergies/Adverse Reactions: Allergies No Known Allergies Allergy (Verified 09/19/20 18:28) Medications to take at Discharge gabapentin 300 mg capsule 900 mg PO TID 01/29/18 metformin 500 mg tablet 500 mg PO DAILY tab 01/29/18 multivitamin 1 tab PO DAILY 01/29/18 sertraline 100 mg tablet 100 mg PO DAILY 01/29/18 tamsulosin 0.4 mg capsule 0.4 mg PO DAILY 01/29/18 atorvastatin 40 mg tablet 40 mg PO QHS 10/17/18 warfarin 4 mg tablet 4 mg PO QMWF 04/21/19 amiodarone 200 mg tablet 100 mg PO DAILY tab 01/21/20 Warfarin Sodium 2 mg PO SUTUTHSA 09/19/20 Psyllium [Metamucil] 1 packet PO DAILY 09/22/20 Amox/Clavulanate Tablet [Augmentin Tablet] 875 mg PO Q12H #14 tab 09/24/20 Gauze Bandage [Kerlix] 1 each TP DAILY #10 bandage 09/24/20 Povidone-Iodine [Betadine] 237 ml TP DAILY #1 bottle 09/24/20 The following prescriptions were given: Amox/Clavulanate Tablet [Augmentin Tablet] 875 mg PO Q12H #14 tab Transmission Status: Pending to [employer] #69 Povidone-Iodine [Betadine] 237 ml TP DAILY #1 bottle Gauze Bandage [Kerlix] 1 each TP DAILY #10 bandage Primary Care Physician: Humza Guevara MD [Primary Care Provider] - Please follow up with your Primary Care Physician in: 1 Week Test Results: Test results from this visit will be discussed in further detail at your follow-up appointment, if applicable. Please Follow Up With: Yang Rosales DPM - Please page Dr. Rosales if needed, if unable to reach Dr. Rosales may call Dr. Williamson at [phone] (cell) or [phone] (page through [facility]) When: Saturday09/26/2020 or Saturday09/27/2020, sooner if needed Proposed Discharge Date: 09/24/20
--- NOTE | 2020-09-24 12:29 | PCM.DC.SUM ---
Discharge Date and Diagnosis Date of Admission: 09/22/20 Date of Discharge: 09/24/20 - Primary Discharge Diagnosis Acute Problems: 1. Right foot wounds with associated cellulitis 2. Sick sinus syndrome status post pacemaker placement 3. Paroxysmal atrial fibrillation 4. Hypertension 5. Hyperlipidemia 6. Type 2 diabetes mellitus with neuropathy 7. BPH 8. 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 No focal abscess is seen. Degenerative changes of the tarsal joints. Electronically Signed: Rich Jerome MD at 15:54 EDT , Service support , Ankle Brachial Index 09/22/20 18:02 Interpretation Summary Triphasic Doppler waveforms are noted at ankle level bilaterally. Pulse-volume recordings appear satisfactory at ankle and digital levels bilaterally. The resting right ankle-brachial index is normal. The resting left ankle-brachial index is supra-normal. The right digital-brachial index is normal. The left digital-brachial index could not be determined due to the non-compressibility of the vasculature. Arterial flow appears normal at ankle level bilaterally, and at digital level on the right. There is evidence of arterial calcification at ankle and digital level on the left, without evidence of arterial occlusive disease. Ordering Physician: Gerber Barnard Referring Physician: Humza Guevara Performed By: Bobbi Wu RVT, RDCS Consultations 09/22/20 12:59 Consult: Onc/Wound/hydrological technical officer Routine Comment: Dr. Rosales/Dr. Williamson- Podiatry Operations: None Procedures: None Summary of Care Provided: The patient is a 75 year old M admitted 09/22/2020 due to right foot wounds. 1. Right foot wounds with associated cellulitis- Podiatry consulted. IV Zosyn during admission. MRSA PCR negative. MSSA positive. Vascular studies completed, follow results with podiatry as outpatient. CT without abscess. Wound culture with no growth. Discharge on augmentin 875mg BID for 7 days. Follow up with podiatry Saturday or Saturday. Continue dressing changes as ordered by podiatry. 2. Sick sinus syndrome status post pacemaker placement 3. Paroxysmal atrial fibrillation-on amiodarone, Coumadin. 4. Hypertension-stable, does not appear to be on regimen. 5. Hyperlipidemia- on statin. 6. Type 2 diabetes mellitus with neuropathy-continue home oral regimen. Continue gabapentin. 7. BPH-continue Flomax. 8. Depression-on sertraline. General: Alert, Oriented x3, Cooperative HEENT: Atraumatic, PERRLA, EOMI, Normocephalic Neck: Supple, No JVD, Negative Carotid Bruits Lungs: Clear to auscultation, Normal air movement Cardiovascular: Regular rate, No murmurs Abdomen: Bowel Sounds Present, Soft, Non Tender, Non-Distended Extremities: No clubbing, No cyanosis, No edema, Capillary Refill Less than 3 Seconds Skin: No rashes, No breakdown, - - Right foot wounds, erythema significantly improved-dressing intact Musculoskeletal: No Tenderness to Palpation of Joints or Extremities Neurological: Cranial nerves II-XII grossly intact, Neuro grossly intact Psych/Mental Status: Normal Affect, Appropriate Patient seen and examined prior to discharge. Physical assessment as noted above. Patient is stable for discharge with follow up recommendations as noted above. This patient was seen by ALINE Mora under the supervision of Dr. Barnard. - Physical Exam Vitals/I&O's: Vital Signs Temp Pulse Resp BP Pulse Ox 97.8 F 61 18 152/83 H 100 09/24/20 07:56 09/24/20 07:56 09/24/20 07:56 09/24/20 07:56 09/24/20 07:56 Oxygen Delivery Method Room Air Weight: 220 lb 7.396 oz Body Mass Index (BMI) 28.3 Intake and Output for Last 24 Hours 09/22/20 09/23/20 09/24/20 23:59 23:59 23:59 Intake Total 50.75 / 50.75 1400 / 1400 1225 / 1225 Output Total 200 / 200 925 / 925 1175 / 1175 Balance -149.25 / -149.25 475 / 475 50 / 50 Microbiology Past 72 Hours 09/22/20 14:00 Wound - Right Foot Gram Stain - Final 09/22/20 14:00 Wound - Right Foot Wound Culture - Preliminary No growth-Final to follow Laboratory Results 09/23/20 16:29: POC Glucose 108 09/23/20 21:35: POC Glucose 103 09/24/20 06:29: POC Glucose 101 09/24/20 07:00: PT 23.3 H, INR 2.2 09/24/20 07:00: Sodium 138, Potassium 4.0, Chloride 106, Carbon Dioxide 26.0, Anion Gap 6, BUN 21 H, Creatinine 1.00, Estim Creat Clear Calc 75.35, Est GFR (MDRD) Af Amer 94, Est GFR (MDRD) Non-Af 78, BUN/Creatinine Ratio 21.1 H, Glucose 95, Calcium 8.7 09/24/20 11:04: POC Glucose 138 H Current Medications Acetaminophen (Acetaminophen 325 Mg Tablet) 650 mg PO Q6H PRN PRN PRN Reason: Pain Score 1-10/Temp > 100.7 F Last Admin: 09/23/20 06:36 Dose: 650 mg Documented by: Amiodarone HCl ([facility] 200 Mg Tablet) [facility] Last Admin: 09/24/20 08:02 Dose: 100 mg Documented by: Atorvastatin Calcium (Atorvastatin Calcium 40 Mg Tablet) 40 mg PO QHS [facility] Last Admin: 09/23/20 21:34 Dose: 40 mg Documented by: Enoxaparin Sodium (Enoxaparin 40 Mg/0.4 Ml Syringe) 40 mg SC DAILY [facility] Last Admin: 09/24/20 11:12 Dose: 40 mg Documented by: Gabapentin (Gabapentin 300 Mg Capsule) 900 mg PO TIDCM [facility] Last Admin: 09/24/20 11:12 Dose: 900 mg Documented by: Sodium Chloride () 250 mls @ 15 mls/hr IV .[id number] PRN PRN Reason: Saline Flush Last Admin: 09/23/20 11:20 Dose: 15 mls/hr Documented by: Piperacillin Sod/Tazobactam (Sod 3.375 gm/ Sodium Chloride) 50 mls @ 12.5 mls/hr IV Q8 [facility] Last Admin: 09/24/20 12:08 Dose: 12.5 mls/hr Documented by: Insulin Human Lispro (Insulin Lispro 100 Unit/Ml Insuln.Pen) 0 unit SC [facility]; Protocol Last Admin: 09/24/20 11:12 Dose: Not Given Documented by: Multivitamins (Multivitamins,Therapeutic Tablet) [facility] Last Admin: 09/24/20 08:02 Dose: 1 tablet Documented by: Ondansetron HCl (Ondansetron 4 Mg/2 Ml Vial) 4 mg IV Q8H PRN PRN PRN Reason: NAUSEA/VOMITING Oxycodone HCl (Oxycodone 5 Mg Tablet) 5 mg PO Q4H PRN PRN PRN Reason: Pain Score 4-5 Psyllium Hydrophilic Mucilloid (Psyllium 1 Packet) 1 packet PO DAILY [facility] Last Admin: 09/24/20 11:12 Dose: 1 packet Documented by: Sertraline HCl (Sertraline 100 Mg Tablet) 100 mg PO DAILY [facility] Last Admin: 09/24/20 08:02 Dose: 100 mg Documented by: Sodium Chloride (0.9% Saline Lock 10 Ml Syringe) 10 - 40 ml IV UD PRN PRN Reason: SALINE FLUSH Last Admin: 09/22/20 15:47 Dose: 10 ml Documented by: Tamsulosin HCl (Tamsulosin Hcl 0.4 Mg Capsule) [facility] Last Admin: 09/24/20 08:02 Dose: 0.4 mg Documented by: Warfarin Sodium (Warfarin 4 Mg Tablet) 2 mg PO SuTuThSa@1700 [facility] Last Admin: 09/22/20 17:39 Dose: 2 mg Documented by: Warfarin Sodium (Warfarin 4 Mg Tablet) 4 mg PO MoWeFr@1700 [facility] Last Admin: 09/23/20 17:20 Dose: 4 mg Documented by: Discharge Diet: Carb Control Diet Discharge Activity: Use Walker Weight Bearing Status: Partial weight bearing - Limit weightbearing on right foot Call your doctor if your incision/area has: Continuous Slow Oozing, Sudden Increased Bleeding, Foul Smelling Discharge Call your doctor if you observe: Fever of 101 or Higher, Shortness of breath, Calf discomfort, Uncontrolled pain Cleanse incision/area with: - - Right foot wound care - change dressing every day 1. Cleanse wounds with normal saline solution 2. Apply betadine (providone iodine solution) to wounds 3. Apply adaptic non adherent, 4x4 gauze, and then gauze roll 4. Gently apply terrie bandage being sure not apply bandage to tight Home Medications: Medications to take at Discharge gabapentin 300 mg capsule 900 mg PO TID 01/29/18 metformin 500 mg tablet 500 mg PO DAILY tab 01/29/18 multivitamin 1 tab PO DAILY 01/29/18 sertraline 100 mg tablet 100 mg PO DAILY 01/29/18 tamsulosin 0.4 mg capsule 0.4 mg PO DAILY 01/29/18 atorvastatin 40 mg tablet 40 mg PO QHS 10/17/18 warfarin 4 mg tablet 4 mg PO QMWF 04/21/19 amiodarone 200 mg tablet 100 mg PO DAILY tab 01/21/20 Warfarin Sodium 2 mg PO SUTUTHSA 09/19/20 Psyllium [Metamucil] 1 packet PO DAILY 09/22/20 Amox/Clavulanate Tablet [Augmentin Tablet] 875 mg PO Q12H #14 tab 09/24/20 Gauze Bandage [Kerlix] 1 each TP DAILY #10 bandage 09/24/20 Povidone-Iodine [Betadine] 237 ml TP DAILY #1 bottle 09/24/20 Following Prescriptions Were Given to Patient: Amox/Clavulanate Tablet [Augmentin Tablet] 875 mg PO Q12H #14 tab Transmission Status: Pending to [employer] #69 Povidone-Iodine [Betadine] 237 ml TP DAILY #1 bottle Gauze Bandage [Kerlix] 1 each TP DAILY #10 bandage Primary Care Physician: Humza Guevara MD [Primary Care Provider] - Please follow up with your Primary Care Physician in: 1 Week Please Follow Up With: Yang Rosales DPM - Please page Dr. Rosales if needed, if unable to reach Dr. Rosales may call Dr. Williamson at [phone] (cell) or [phone] (page through [facility]) When: Saturday09/26/2020 or Saturday09/27/2020, sooner if needed Disposition: Home Minutes spent on discharge:: 35 Patient Condition:: Stable Medical Necessity - Tobacco Use Smoking Status: Never smoker Meaningful Use Info Meaningful Use Diagnoses (Choose all that apply): None applicable
[2020-09-24 14:52] VITALS: BP 118/55; PULSE 63; RESP 16; TEMP 36.6; O2SAT 95
== END 2020-09-24 15:45 | disposition home or self-care (01) | DRG 638 ==
PROVIDERS: Nurse Practitioner Family; Admitting Provider Internal Medicine; PCP Family Medicine; Referring Provider Internal Medicine; Visit Provider Internal Medicine
DX: E11.621 Type 2 diabetes mellitus with foot ulcer (principal); L03.115 Cellulitis of right lower limb; A52.16 Charcot's arthropathy (tabetic); L97.512 Non-pressure chronic ulcer of other part of right foot with fat layer exposed; Z95.0 Presence of cardiac pacemaker; I48.0 Paroxysmal atrial fibrillation; I10 Essential (primary) hypertension; E78.5 Hyperlipidemia, unspecified; N40.0 Benign prostatic hyperplasia without lower urinary tract symptoms; F32.9 Major depressive disorder, single episode, unspecified; R23.8 Other skin changes; E11.40 Type 2 diabetes mellitus with diabetic neuropathy, unspecified; Z79.01 Long term (current) use of anticoagulants; Z79.84 Long term (current) use of oral hypoglycemic drugs; Z79.899 Other long term (current) drug therapy; B95.61 Methicillin susceptible Staphylococcus aureus infection as the cause of diseases classified elsewhere
CPT/HCPCS: 36415; 73630; 73701; 80048; 80053; 82962; 83036; 85025; 85027; 85610; 87070; 87077; 87186; 87205; 87640; 93922; 97110; 97162; 97166; 97530; 97802; 99284; J7050; Q9967; A4216

== ENCOUNTER 2020-11-25 08:30 | Outpatient (RCR) | payer MEDICARE, SELFPAY ==
[2020-11-04 10:12] VITALS: BP 145/85; PULSE 61; RESP 16; TEMP 36.3; BMI 26.9
--- NOTE | 2020-11-04 12:36 | HP.PCM_ITS ---
History of Present Illness Date of Service: 11/04/20 Chief Complaint: Right foot wounds History of Wound: Samule presents to the wound healing center today (11/04/20) for evaluation of a medial right foot ulcer and a lateral right foot ulcer. 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 The patient's ulcers onset around 09/20/20. He presented to Dr. Rosales's office and was referred to the [facility] emergency department for evaluation. He reports he had been wearing a pair of rubber boots which ru bbed his right foot and caused blisters which then developed into ulcers. He was admitted to the hospital and worked up and treated for his foot ulcers. While at the hospital, he received IV Zosyn. He had a foot x-ray on 09/19/20 which showed severe degenerative changes, but no signs of osteomyelitis. He had a lower extremity CT on 09/22/20 which did not demonstrate osteomyelitis. He had arterial studies of the bilateral lower extremities on 09/23/20 which did not demonstrate any arterial occlusive disease. His MRSA PCR was negative; his MSSA PCR was positive. He was discharged home on Augmentin x7 days. Since discharge from [facility] he has been following with Dr. Rosales weekly, where he has received debridement of his ulcers. He initially was using triple antibiotic ointment and gauze dressings daily to the ulcers of his right foot. Santyl was ordered, but due to cost the patient delayed treating with Santyl until the past 2-3 weeks. Since initiating Santyl, the patient has had improvement in the appearance of his foot ulcers. He has been using an Brandon wrap for compression to his right lower extremity. He attempts to keep his right foot elevated when possible. He was previously using Agustin for nutritional supplementation, however this was discontinued due to cost. On 09/26/20, the patient reports that a wound culture was collected and a foot x-ray was obtained. Results of these will be requested. Per the patient's report, the culture indicated susceptibility to doxycycline, and he is completing a 2-week course of doxycycline tomorrow. The patient was referred to the wound healing center for a second opinion, and consideration of advanced skin substitutes. [facility] Medical History (Updated 11/04/20 @ 12:57 by Hanny Vo NP, IT SALES CONSULTANT[employer]) Anxiety and depression BPH (benign prostatic hyperplasia) Chronic laryngitis Diabetic foot ulcer associated with type 2 diabetes mellitus, with fat layer exposed Diabetic foot ulcer associated with type 2 diabetes mellitus, with fat layer exposed Diabetic neuropathy Diverticula of colon Essential hypertension Fatigue GERD (gastroesophageal reflux disease) Gout Hyperlipidemia Mobitz type 2 second degree heart block Paroxysmal atrial fibrillation Paroxysmal atrial tachycardia Sick sinus syndrome with tachycardia Type 2 diabetes mellitus Home Medications gabapentin 300 mg capsule 900 mg PO TID 01/29/18 [History Last Taken 09/22/20 11:00] metformin 500 mg tablet 500 mg PO DAILY tab 01/29/18 [History Last Taken 09/22/20] multivitamin 1 tab PO DAILY 01/29/18 [History Last Taken 09/22/20] sertraline 100 mg tablet 100 mg PO DAILY 01/29/18 [History Last Taken 09/22/20] tamsulosin 0.4 mg capsule 0.4 mg PO DAILY 01/29/18 [History Last Taken 09/21/20] atorvastatin 40 mg tablet 40 mg PO QHS 10/17/18 [History Last Taken 09/21/20] warfarin 4 mg tablet 4 mg PO QMWF 04/21/19 [History Last Taken 09/21/20] amiodarone 200 mg tablet 100 mg PO DAILY tab 01/21/20 [History Last Taken 09/22/20] warfarin 2 mg PO SUTUTHSA 09/19/20 [History Last Taken 09/22/20 12:00] psyllium husk (aspartame) 1 packet PO DAILY 09/22/20 [History Last Taken 09/22/20] amoxicillin-pot clavulanate 875 mg PO Q12H #14 tab 09/24/20 [Rx Last Taken Unknown] gauze bandage #10 bandage 09/24/20 [Rx Last Taken Unknown] povidone-iodine 237 ml TP DAILY #1 bottle 09/24/20 [Rx Last Taken Unknown] Allergy/AdvReac Type Severity Reaction Status Date / Time No Known Allergies Allergy Verified 09/19/20 18:28 Family History Mother Heart disease Father Heart disease Brother Heart disease Brother Heart disease Surgical History Amputated toe History of bilateral knee replacement History of cardioversion (02/17/18) History of permanent cardiac pacemaker placement (03/02/19) Previous back surgery Social History (Updated 07/25/20 @ 10:33 by Mildred MCKEON, PA) Smoking Status: Never smoker alcohol intake: never caffeine: No ROS Constitutional Constitutional: Denies chills, fever(s) or night sweats Eyes Eyes: Denies change in vision or double vision ENT HEENT: Denies lip swelling or tongue swelling Cardiovascular Cardiovascular: Reports leg edema; Denies chest pain or palpitations Respiratory/Chest Respiratory/Chest: Denies cough, shortness of breath at rest, shortness of breath with exertion or wheezing Gastrointestinal Gastrointestinal: Denies diarrhea, nausea or vomiting Genitourinary Genitourinary: Denies dysuria or hematuria Musculoskeletal Musculoskeletal: Reports abnormal gait, deformity and other Details: Right Charcot foot ; Denies extremity pain or muscle weakness Integumentary Integumentary: Reports wounds; Denies rash Neurologic Neurologic: Reports numbness and tingling; Denies abnormal gait, abnormal speech or focal weakness Endocrine Endocrinology: Denies cold intolerance, heat intolerance, polydipsia or polyuria Hematologic/Lymphatic Hematologic/Lymphatic: Reports easy bleeding and easy bruising Vital Signs Vital Signs Vital Signs: 11/04/20 10:12 Temperature 97.3 F L Temperature Source Temporal Pulse Rate 61 Respiratory Rate 16 Blood Pressure 145/85 H Blood Pressure Mean 105 Blood Pressure Source Monitor Blood Pressure Position Sitting Blood Pressure Location Right Arm Weight Weight: 210 lb Body Mass Index (BMI) 26.9 Physical Exam Const alert, no apparent distress and healthy appearing General Appearance: cooperative, comfortable and well kempt HEENT moist oral mucous membranes Head and Scalp: normocephalic and atraumatic Eyes EOMs intact bilaterally Neck supple and no JVD Resp normal respiratory effort, normal air movement and no use of accessory muscles Auscultation: clear to auscultation bilaterally; Negative for crackles, rales, rhonchi or wheezes Cardio regular rate and regular rhythm GI normal to inspection, nondistended, normoactive bowel sounds Extremity normal capillary refill and no joint enlargement General Extremity: edema right lower extremity (2+ pitting edema of right foot) moderate; Negative for clubbing Peripheral Pulses: Yes dorsalis pedis pulses present bilateral 1+ Skin Wounds: wounds noted No malodorous and other Right medial foot ulcer with marginal amount of slough and devitalized tissue, good granulation tissue present. No purulent or malodorous drainage. No tunneling, undermining, or probing to bone. No periulcer erythema, warmth, or tenderness to palpation Right lateral foot ulcer with moderate amount of slough and devitalized tissue present, with some good granulation tissue present as well. No purulent or malodorous drainage. No tunneling, undermining, or probing to bone. Mild periulcer erythema. No warmth. No tenderness to palpation. Neuro moves all extremities and no focal motor deficits Psych mental status grossly normal, cooperative and affect normal Debridement Note Debridement Note Post-Debridement Measurements and Additional Note: Post-Debridement M easurements/Treatment WC - Nurse 1 - General Ulcer Assessment Start: 11/04/20 10:12 Freq: Status: Active Protocol: SAHIL Activity Type Activity Date Activity User E-Sign Co-Sign Detail Recorded Client Recorded Date Recorded By Document 11/04/20 10:12 MS [id number] 11/04/20 10:39 MS 11/04/20 10:12 - Today's Visit Information Type of service Initial Visit Arrival Mode Ambulatory Patient Identification Verified (Name & Yes ) Patient Requires Transmission-Based No Precautions Safety Precautions NA Finger Stick Blood Sugar(mg/dl) (if 98 indicated): Blood Sugar Stated by Patient Height and Weight Height 6 ft 2 in Weight 210 lb Weight in Pounds 210.0 lbs Weight Measurement Method Stated by Patient Body Mass Index (BMI) 26.9 BMI Classification Overweight BSA - Vidya 2.22 Vital Signs Temperature (97.8 F-99.1 F) 97.3 F L Temperature Source Temporal Pulse Rate (60-100) 61 Pulse Location Monitor Respiratory Rate (12-18) 16 Respiratory rate source Observation Blood Pressure (90/60-120/80) 145/85 H Blood Pressure Mean 105 Source Monitor Position Sitting Blood Pressure Location Right Arm History Since Last Visit- (Skip if this is Patient's initial visit) Have you changed medications since your No last visit? Any new allergies or adverse reactions No Had a fall/change in ADL's that may No increase risk of falls Signs or symptoms of abuse and/or No neglect since last visit Have you been in the hospital since your No last visit? Has dressing in place as prescribed Yes Has compression in place as prescribed N/A Has offloadiing in place as prescribed N/A Experienced any changes in pain level or No management Left Footwear Regular Shoe Right Footwear Slipper WC - Nurse 1 - General Ulcer Measurement Start: 11/04/20 10:12 Freq: Status: Active Protocol: Activity Type Activity Date Activity User E-Sign Co-Sign Detail Recorded Client Recorded Date Recorded By Document 11/04/20 10:12 MS [id number] 11/04/20 10:39 MS 11/04/20 10:12 Wound Center Nurse 1 #2 Lat right foot -Current Size (cm) - Length 4 -Current Size (cm) - Width 4.5 -Current Size (cm) - Depth 0.1 -Total Square Cm 18.0 -Exudate Amt Medium -Exudate Type Serosanguineous -Wound Margin Distinct, Outline Attached -Granulation Amt Medium (34-66%) -Granulation Quality Red -Slough/Fibrin Yes -Necrosis Amt Medium (34-66%) -Necrotic Tissue Type Adherent Slough -Texture (Priscilla-wound Skin Appearance) No Abnormality -Moisture (Priscilla-wound Skin Appearance) No Abnormality -Color (Priscilla-wound Skin Appearance) No Abnormality -Temperature (Priscilla-wound Skin No Abnormality Appearance) (Pt Warm) -Tenderness on Palpation (Priscilla-wound No Skin Appearance) -Ulcer Cleansing Wound Cleanser -Anesthetic Used 4% Lidocaine Solution #1 Med right foot -Current Size (cm) - Length 2 -Current Size (cm) - Width 2 -Current Size (cm) - Depth 0.1 -Total Square Cm 4 -Exudate Amt Medium -Exudate Type Serosanguineous -Wound Margin Distinct, Outline Attached -Granulation Amt Medium (34-66%) -Granulation Quality Red -Necrosis Amt Medium (34-66%) -Necrotic Tissue Type Adherent Slough -Texture (Priscilla-wound Skin Appearance) No Abnormality -Moisture (Priscilla-wound Skin Appearance) No Abnormality -Color (Priscilla-wound Skin Appearance) No Abnormality -Temperature (Priscilla-wound Skin No Abnormality Appearance) (Pt Warm) -Ulcer Cleansing Wound Cleanser -Anesthetic Used 4% Lidocaine Solution Right Calf (cm) 28 Right Ankle (cm) 23 WC - Nurse 2 - General Ulcer CM Notes Start: 11/04/20 10:12 Freq: Status: Active Protocol: Activity Type Activity Date Activity User E-Sign Co-Sign Detail Recorded Client Recorded Date Recorded By Document 11/04/20 12:20 PL [id number] 11/04/20 12:23 PL 11/04/20 12:20 Wound Center Nurse 2 #2 Lat right foot -Time 11:10 -Correct Patient Yes -Correct Side, Site, Position Yes -Correct Procedure Yes -Procedure Performed Yes -Type of Procedure Debridement -Clinical Debridement Subcutaneous -Tissue Removed Subcutaneous -Post Debridement (cm) - Length 4.5 -Post Debridement (cm) - Width 3.0 -Post Debridement (cm) - Depth 0.1 -Total Square (Post) (cm) 13.50 -Area of Debridement (cm) - Length 4.5 -Area of Debridement (cm) - Width 3.0 -Total Square (Area) (cm) 13.50 -Tunneling No -Undermining/Tunneling No -Circular Undermining No -Wound/Ulcer Outcome Not Healed -Ulcer Cleansing Rinsed/ Irrigated with Saline -Foul Odor after Cleansing No -Bioengineered Tissue No -Debridement - Subq, 1st 20sq cm Yes #1 Med right foot -Time 11:10 -Correct Patient Yes -Correct Side, Site, Position Yes -Correct Procedure Yes -Procedure Performed Yes -Type of Procedure Debridement -Clinical Debridement Subcutaneous -Tissue Removed Subcutaneous -Post Debridement (cm) - Length 1.5 -Post Debridement (cm) - Width 1.8 -Post Debridement (cm) - Depth 0.1 -Total Square (Post) (cm) 2.70 -Area of Debridement (cm) - Length 1.5 -Area of Debridement (cm) - Width 1.8 -Total Square (Area) (cm) 2.70 -Tunneling No -Undermining/Tunneling No -Circular Undermining No -Wound/Ulcer Outcome Not Healed -Ulcer Cleansing Rinsed/ Irrigated with Saline -Foul Odor after Cleansing No -Bioengineered Tissue No -Debridement - Subq, 1st 20sq cm No Pain Scale: 0-10 Numeric Is Patient Pain Free? Yes BRONWYN - Nurse 3 - General Ulcer D/C NN Start: 11/04/20 10:12 Freq: Status: Active Protocol: Activity Type Activity Date Activity User E-Sign Co-Sign Detail Recorded Client Recorded Date Recorded By Document 11/04/20 11:33 MS [id number] 11/04/20 11:35 MS 11/04/20 11:33 Wound Care Nurse 3 #2 Lat right foot -Ulcer Cleansing Rinsed/ Irrigated with Saline -Other Dressing hydrogel -Primary Dressing Covered/Secured with Dry Gauze,Dry Gauze & Roll Gauze,Secured with Tape #1 Med right foot -Ulcer Cleansing Rinsed/ Irrigated with Saline -Foul Odor after Cleansing No -Primary Dressing Applied Promogran -Primary Dressing Covered/Secured with Dry Gauze,Dry Gauze & Roll Gauze,Secured with Tape -Promogran 1 Pain Scale: 0-10 Numeric Is Patient Pain Free? Yes WC - Visit Discharge Discharge Condition Stable Ambulatory Status Ambulatory Medication Reconcilliation completed & No provided to patient/care provider Clinical Summary of Care Provided Yes Wound debrided: Right medial foot ulcer Laterality: Right Wound Grade/Stage: Choudhary 1 Type of Debridement: Excisional debridement Anesthesia Used: 4% Lidocaine Solution Depth: in the subcutaneous layer Percentage of wound debrided: 100 Instrument Used: 7mm curette Tissue Removed: Slough and devitalized tissue Severity: Fat Layer Exposed Amount of bleeding with debridement: Mild Bleeding Controlled with: Compression and gauze Patient tolerated procedure: Patient tolerated procedure well Additional Wound Wound debrided: Right lateral foot ulcer Laterality: Right Wound Grade/Stage: Choudhary 1 Type of Debridement: Excisional debridement Anesthesia Used: 4% Lidocaine Solution Depth: in the subcutaneous layer Percentage of wound debrided: 100 Instrument Used: 7mm curette Tissue Removed: Slough and devitalized tissue Severity: Fat Layer Exposed Amount of bleeding with debridement: Moderate Bleeding Controlled with: Compression and gauze Patient tolerated procedure: Patient tolerated procedure well Lab / Micro Data Result Diagrams: 11/04/20 12:21 Charges/Coding Visit Charges Office Visits / Consults: [id number] OV L4 Est Procedures Integumentary [id number]: [id number] Mary Grace subq tissue 20 sq cm/< Assessment/Plan Assessment/Plan (1) Diabetic foot ulcer associated with type 2 diabetes mellitus, with fat layer exposed: CODE(S): E11.621 - Type 2 diabetes mellitus with foot ulcer; L97.502 - Non-pressure chronic ulcer of other part of unspecified foot with fat layer exposed QUALIFIERS: Diabetic foot ulcer location: midfoot Laterality: right Qualified Code(s): E11.621 - Type 2 diabetes mellitus with foot ulcer; L97.412 - 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 exposed (2) Diabetic foot ulcer associated with type 2 diabetes mellitus, with fat layer exposed: CODE(S): E11.621 - Type 2 diabetes mellitus with foot ulcer; L97.502 - Non-pressure chronic ulcer of other part of unspecified foot with fat layer exposed QUALIFIERS: Diabetic foot ulcer location: midfoot Laterality: right Qualified Code(s): E11.621 - Type 2 diabetes mellitus with foot ulcer; L97.412 - 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 exposed (3) Type 2 diabetes mellitus: CODE(S): E11.9 - Type 2 diabetes mellitus without complications QUALIFIERS: Diabetes mellitus complication detail: with other skin ulcer Diabetes mellitus complication status: with skin complications Diabetes mellitus supervisor intermediates insulin use: without chcf use Qualified Code(s): E11.622 - Type 2 diabetes mellitus with other skin ulcer (4) Diabetic neuropathy: CODE(S): E11.40 - Type 2 diabetes mellitus with diabetic neuropathy, unspecified QUALIFIERS: Diabetes mellitus complication detail: diabetic polyneuropathy Diabetes mellitus type: type 2 Qualified Code(s): E11.42 - Type 2 diabetes mellitus with diabetic polyneuropathy (5) Paroxysmal atrial fibrillation: CODE(S): I48.0 - Paroxysmal atrial fibrillation (6) Essential hypertension: CODE(S): I10 - Essential (primary) hypertension (7) Hyperlipidemia: CODE(S): E78.5 - Hyperlipidemia, unspecified QUALIFIERS: Hyperlipidemia type: unspecified Qualified Code(s): E78.5 - Hyperlipidemia, unspecified PLAN: Debridement performed today in clinic as annotated above. Hydrogel applied to the right lateral foot ulcer. Promogran applied to the right medial foot ulcer. Given the duration of the wound and failure of the wound to respond to standard wound care, we will apply for advanced skin substitutes (Puraply, Nushield, Apligraf). At home wound-care instructions: Change dressing once daily or more frequently as needed due to contamination. Wash wounds daily with antibacterial soap and water, rinse and dry thoroughly before each dressing change. Do not submerge/soak the right foot. Compression: Brandon wrap applied to the right lower extremity for compression. Patient was instructed to use Brandon wrap daily for compression. Off-loading: Continue offloading shoe given by podiatry. The patient was in structed to avoid pressure and friction on the affected areas. Reposition every 2 hours at minimum. Avoid prolonged standing and/or dangling of legs. When seated, feet should be elevated at chest level. Frequent ambulation is encouraged. Diet: Patient encouraged to increase protein intake while taking caution to avoid high carbohydrate and/or sugar intake. Labs/cultures/imaging: Cultures deferred today. Patient reports he has a few days of doxycycline left to complete. Cultures and foot x-ray were collected with Dr. Rosales on 10/26/2020. Results will be requested for review. Foot x-ray, foot CT, and arterial studies were completed in September 2020 and reviewed as annotated above in HPI. Routine baseline lab work ordered. Follow-up: Return to clinic in 1 week for re-evaluation. Return sooner or report to the emergency room should symptoms worsen, or new symptoms arise. Note: [employer] speech recognition teradata solution architect software was used to create portions of this document. Sound-alike and misspelled words, as well as other teradata solution architect errors may be contained in the documentation.
[2020-11-04 13:33] LABS: Absolute Lymphocyte Count 1.21 X10^3/uL (0.83-4.51); Absolute Neutrophil Count 5.1 X10^3/uL (2.0-7.7); Basophil# 0.03 X10^3/uL; Basophil% 0.4 % (0-1); Eosinophil# 0.08 X10^3/uL; Eosinophils% 1.1 % (0-5); Hematocrit 45.8 % (40-54); Hemoglobin 15.1 g/dL (13.0-16.5); Lymphocyte # 1.21 X10^3/ul (0.83-4.51); Lymphocyte % 17.1 % (19-41); Mean Corpuscular Hgb 29.5 pg (27.0-32.0); Mean Corpuscular Volume 89.5 fL (80-94); Mean Platelet Vol. 10.9 fl (6.2-12.0); Monocyte# 0.64 X10^3/uL; NRBC Flagged by Analyzer 0 % (0-5); Neutrophil # 5.09 X10^3/uL (2.7-7.7); Platelet Count 186 K/mm3 (150-450); RBC Distribution Width CV 13.4 % (11.6-14.6); RBC Distribution Width SD 43.8 fl (35.1-43.9); Red Blood Count 5.12 M/mm3 (4.6-6.2); White Blood Count 7.1 K/mm3 (4.4-11.0)
[2020-11-04 13:35] LABS: Erythrocyte Sedimentation Rate 1 mm/hr (0-20)
[2020-11-04 13:56] LABS: Hemoglobin A1c 5.4 % (3.8-5.6)
[2020-11-04 14:24] LABS: CRP < 2.90 mg/L (0.0-3.0); Prealbumin 25.5 mg/dL (20.0-40.0)
[2020-11-11 08:54] VITALS: BP 165/81; PULSE 96; TEMP 36.2; BMI 26.9
--- NOTE | 2020-11-11 12:07 | PCM.WC.PN ---
History of Present Illness Date of Service: 11/11/20 Chief Complaint: Right foot wounds History of Wound: Samuel presents to the wound healing center today (11/04/20) for evaluation of a medial right foot ulcer and a lateral right foot ulcer. 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 The patient's ulcers onset around 09/20/20. He presented to Dr. Rosales's office and was referred to the [facility] emergency department for evaluation. He reports he had been wearing a pair of rubber boots which rubbed his right foot and caused blisters which then developed into ulcers. He was admitted to the hospital and worked up and treated for his foot ulcers. While at the hospital, he received IV Zosyn. He had a foot x-ray on 09/19/20 which showed severe degenerative changes, but no signs of osteomyelitis. He had a lower extremity CT on 09/22/20 which did not demonstrate osteomyelitis. He had arterial studies of the bilateral lower extremities on 09/23/20 which did not demonstrate any arterial occlusive disease. His MRSA PCR was negative; his MSSA PCR was positive. He was discharged home on Augmentin x7 days. Since discharge from [facility] he has been following with Dr. Rosales weekly, where he has received debridement of his ulcers. He initially was using triple antibiotic ointment and gauze dressings daily to the ulcers of his right foot. Santyl was ordered, but due to cost the patient delayed treating with Santyl until the past 2-3 weeks. Since initiating Santyl, the patient has had improvement in the appearance of his foot ulcers. He has been using an Brandon wrap for compression to his right lower extremity. He attempts to keep his right foot elevated when possible. He was previously using Agustin for nutritional supplementation, however this was discontinued due to cost. On 09/26/20, the patient reports that a wound culture was collected and a foot x-ray was obtained. Results of these will be requested. Per the patient's report, the culture indicated susceptibility to doxycycline, and he is completing a 2-week course of doxycycline tomorrow. The patient was referred to the wound healing center for a second opinion, and consideration of advanced skin substitutes. Progress of Wound: Samuel returns today for follow-up of his right foot ulcers. He is accompanied today by his . Samuel ulcers have improved in size and appearance in the past week, and he has been compliant with wound care. The patient denies fever, general malaise or poor appetite. The patient has not had increased redness, swelling, or purulent/malodorous drainage from affected area. Patient's lab work collected on 11/04/2020 revealed the following: CBCD: Unremarkable ESR: Normal Hemoglobin A1c 5.4% CRP: Normal prealbumin: Normal Objective Data Objective Data Vital Signs: Vital Signs Temp Pulse Resp BP 97.2 F L 96 16 165/81 H 11/11/20 08:54 11/11/20 08:54 11/04/20 10:12 11/11/20 08:54 Weight: 210 lb Body Mass Index (BMI) 26.9 Lab / Micro Data Result Diagrams: 11/04/20 12:21 Charges/Coding Procedures Integumentary 150xxx-152xx: [id number] Skin sub graft face/nk/hf/g Physical Exam Const alert, no apparent distress and healthy appearing General Appearance: cooperative, comfortable and well kempt Neck supple Resp normal respiratory effort Extremity normal capillary refill and no joint enlargement General Extremity: edema right lower extremity (2+ pitting edema of right foot) moderate; Negative for clubbing Skin Wounds: wounds noted No malodorous Wound Narrative: Right medial foot ulcer with marginal amount of slough and devitalized tissue, good granulation tissue present. No purulent or malodorous drainage. No tunneling, undermining, or probing to bone. No periulcer erythema, warmth, or tenderness to palpation Right lateral foot ulcer with moderate amount of slough and devitalized tissue present, with moderate amount of good granulation tissue present as well. No purulent or malodorous drainage. No tunneling, undermining, or probing to bone. Mild periulcer erythema. No warmth. No tenderness to palpation. Neuro moves all extremities Psych mental status grossly normal, cooperative and affect normal Debridement Note Debridement Note Post-Debridement Measurements and Additional Note: Post-Debridement Measurements/Treatment WC - Nurse 1 - General Ulcer Assessment Start: 11/04/20 10:12 Freq: Status: Active Protocol: WC.LOWEXT Activity Type Activity Date Activity User E-Sign Co-Sign Detail Recorded Client Recorded Date Recorded By Document 11/04/20 10:12 MS [id number] 11/04/20 10:39 MS Document 11/11/20 08:54 KR [id number] 11/11/20 09:02 KR 11/04/20 11/11/20 10:12 08:54 WC - Today's Visit Information Type of service Initial Visit Follow-up Visit (Physician/[employer] ) Arrival Mode Ambulatory Ambulatory Patient Identification Verified (Name & Yes Yes ) Patient Requires Transmission-Based No Precautions Safety Precautions NA Finger Stick Blood Sugar(mg/dl) (if 98 indicated): Blood Sugar Stated by Patient Height and Weight Height 6 ft 2 in Weight 210 lb Weight in Pounds 210.0 lbs Weight Measurement Method Stated by Patient Body Mass Index (BMI) 26.9 26.9 BMI Classification Overweight Overweight BSA - Vidya 2.22 Vital Signs Temperature (97.8 F-99.1 F) 97.3 F L 97.2 F L Temperature Source Temporal Temporal Pulse Rate (60-100) 61 96 Pulse Location Monitor Monitor Respiratory Rate (12-18) 16 Respiratory rate source Observation Blood Pressure (90/60-120/80) 145/85 H 165/81 H Blood Pressure Mean (mm Hg) 105 109 Source Monitor Monitor Position Sitting Semi-Fowlers Blood Pressure Location Right Arm Right Arm History Since Last Visit- (Skip if this is Patient's initial visit) Have you changed medications since your No No last visit? Any new allergies or adverse reactions No No Had a fall/change in ADL's that may No No increase risk of falls Signs or symptoms of abuse and/or No No neglect since last visit Have you been in the hospital since your No No last visit? Has dressing in place as prescribed Yes Yes Has compression in place as prescribed N/A N/A Has offloadiing in place as prescribed N/A N/A Experienced any changes in pain level or No No management Left Footwear Regular Shoe Regular Shoe Right Footwear Slipper Regular Shoe Pain Scale: 0-10 Numeric Is Patient Pain Free? Yes WC - Nurse 1 - General Ulcer Measurement Start: 11/04/20 10:12 Freq: Status: Active Protocol: Activity Type Activity Date Activity User E-Sign Co-Sign Detail Recorded Client Recorded Date Recorded By Document 11/04/20 10:12 MS [id number] 11/04/20 10:39 MS Document 11/11/20 08:54 KR [id number] 11/11/20 09:02 KR 11/04/20 11/11/20 10:12 08:54 Wound Center Nurse 1 #2 Lat right foot -Current Size (cm) - Length 4 3.9 -Current Size (cm) - Width 4.5 2 -Current Size (cm) - Depth 0.1 0.1 -Total Square Cm 18.0 7.8 -Exudate Amt Medium Medium -Exudate Type Serosanguineous Serosanguineous -Wound Margin Distinct, Distinct, Outline Outline Attached Attached -Granulation Amt Medium (34-66%) Medium (34-66%) -Granulation Quality Red Red -Slough/Fibrin Yes -Necrosis Amt Medium (34-66%) Small (1-33%) -Necrotic Tissue Type Adherent Slough Adherent Slough -Texture (Priscilla-wound Skin Appearance) No Abnormality Assessed, Scarring -Moisture (Priscilla-wound Skin Appearance) No Abnormality No Abnormality, Assessed -Color (Priscilla-wound Skin Appearance) No Abnormality No Abnormality, Assessed -Temperature (Priscilla-wound Skin No Abnormality No Abnormality Appearance) (Pt Warm) (Pt Warm) -Tenderness on Palpation (Priscilla-wound No No Skin Appearance) -Ulcer Cleansing Wound Cleanser Rinsed/ Irrigated with Saline -Foul Odor after Cleansing No -Anesthetic Used 4% Lidocaine 4% Lidocaine Solution Solution #1 Med right foot -Current Size (cm) - Length 2 0.9 -Current Size (cm) - Width 2 0.5 -Current Size (cm) - Depth 0.1 0.1 -Total Square Cm 4 0.45 -Exudate Amt Medium Small -Exudate Type Serosanguineous Serosanguineous -Wound Margin Distinct, Distinct, Outline Outline Attached Attached -Granulation Amt Medium (34-66%) Small (1-33%) -Granulation Quality Red Red -Necrosis Amt Medium (34-66%) None Present (0 %) -Necrotic Tissue Type Adherent Slough -Texture (Priscilla-wound Skin Appearance) No Abnormality Assessed, Scarring -Moisture (Priscilla-wound Skin Appearance) No Abnormality No Abnormality, Assessed -Color (Priscilla-wound Skin Appearance) No Abnormality No Abnormality, Assessed -Temperature (Priscilla-wound Skin No Abnormality No Abnormality Appearance) (Pt Warm) (Pt Warm) -Tenderness on Palpation (Priscilla-wound No Skin Appearance) -Ulcer Cleansing Wound Cleanser Rinsed/ Irrigated with Saline -Foul Odor after Cleansing No -Anesthetic Used 4% Lidocaine 4% Lidocaine Solution Solution Right Calf (cm) 28 Right Ankle (cm) 23 WC - Nurse 2 - General Ulcer CM Notes Start: 11/04/20 10:12 Freq: Status: Active Protocol: Activity Type Activity Date Activity User E-Sign Co-Sign Detail Recorded Client Recorded Date Recorded By Document 11/04/20 12:20 PL [id number] 11/04/20 12:23 PL 11/04/20 12:20 Wound Center Nurse 2 #2 Lat right foot -Time 11:10 -Correct Patient Yes -Correct Side, Site, Position Yes -Correct Procedure Yes -Procedure Performed Yes -Type of Procedure Debridement -Clinical Debridement Subcutaneous -Tissue Removed Subcutaneous -Post Debridement (cm) - Length 4.5 -Post Debridement (cm) - Width 3.0 -Post Debridement (cm) - Depth 0.1 -Total Square (Post) (cm) 13.50 -Area of Debridement (cm) - Length 4.5 -Area of Debridement (cm) - Width 3.0 -Total Square (Area) (cm) 13.50 -Tunneling No -Undermining/Tunneling No -Circular Undermining No -Wound/Ulcer Outcome Not Healed -Ulcer Cleansing Rinsed/ Irrigated with Saline -Foul Odor after Cleansing No -Bioengineered Tissue No -Debridement - Subq, 1st 20sq cm Yes #1 Med right foot -Time 11:10 -Correct Patient Yes -Correct Side, Site, Position Yes -Correct Procedure Yes -Procedure Performed Yes -Type of Procedure Debridement -Clinical Debridement Subcutaneous -Tissue Removed Subcutaneous -Post Debridement (cm) - Length 1.5 -Post Debridement (cm) - Width 1.8 -Post Debridement (cm) - Depth 0.1 -Total Square (Post) (cm) 2.70 -Area of Debridement (cm) - Length 1.5 -Area of Debridement (cm) - Width 1.8 -Total Square (Area) (cm) 2.70 -Tunneling No -Undermining/Tunneling No -Circular Undermining No -Wound/Ulcer Outcome Not Healed -Ulcer Cleansing Rinsed/ Irrigated with Saline -Foul Odor after Cleansing No -Bioengineered Tissue No -Debridement - Subq, 1st 20sq cm No Pain Scale: 0-10 Numeric Is Patient Pain Free? Yes - Nurse 3 - General Ulcer D/C NN Start: 11/04/20 10:12 Freq: Status: Active Protocol: Activity Type Activity Date Activity User E-Sign Co-Sign Detail Recorded Client Recorded Date Recorded By Document 11/04/20 11:33 MS [id number] 11/04/20 11:35 MS 11/04/20 11:33 Wound Care Nurse 3 #2 Lat right foot -Ulcer Cleansing Rinsed/ Irrigated with Saline -Other Dressing hydrogel -Primary Dressing Covered/Secured with Dry Gauze,Dry Gauze & Roll Gauze,Secured with Tape #1 Med right foot -Ulcer Cleansing Rinsed/ Irrigated with Saline -Foul Odor after Cleansing No -Primary Dressing Applied Promogran -Primary Dressing Covered/Secured with Dry Gauze,Dry Gauze & Roll Gauze,Secured with Tape -Promogran 1 Pain Scale: 0-10 Numeric Is Patient Pain Free? Yes - Visit Discharge Discharge Condition Stable Ambulatory Status Ambulatory Medication Reconcilliation completed & No provided to patient/care provider Clinical Summary of Care Provided Yes Wound debrided: Right medial foot ulcer Laterality: Right Wound Grade/Stage: Choudhary 1 Type of Debridement: Excisional debridement Anesthesia Used: 4% Lidocaine Solution Depth: in the subcutaneous layer Percentage of wound debrided: 100 Instrument Used: 5mm curette Tissue Removed: Slough and devitalized tissue Severity: Fat Layer Exposed Amount of bleeding with debridement: Moderate Bleeding Controlled with: Pressure Patient tolerated procedure: Patient tolerated procedure well Additional Wound Wound debrided: Right lateral foot ulcer Laterality: Right Wound Grade/Stage: Choudhary 1 Type of Debridement: Excisional debridement Anesthesia Used: 4% Lidocaine Solution Depth: in the subcutaneous layer Percentage of wound debrided: 100 Instrument Used: 7mm curette Tissue Removed: Slough and devitalized tissue Severity: Fat Layer Exposed Amount of bleeding with debridement: Mild Bleeding Controlled with: Pressure Patient tolerated procedure: Patient tolerated procedure well Assessment/Plan Assessment/Plan (1) Diabetic foot ulcer associated with type 2 diabetes mellitus, with fat layer exposed: CODE(S): E11.621 - Type 2 diabetes mellitus with foot ulcer; L97.502 - Non-pressure chronic ulcer of other part of unspecified foot with fat layer exposed QUALIFIERS: Diabetic foot ulcer location: midfoot Laterality: right Qualified Code(s): E11.621 - Type 2 diabetes mellitus with foot ulcer; L97.412 - 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 exposed (2) Type 2 diabetes mellitus: CODE(S): E11.9 - Type 2 diabetes mellitus without complications QUALIFIERS: Diabetes mellitus [facility] insulin use: without [facility] use Diabetes mellitus complication status: with skin complications Diabetes mellitus complication detail: with other skin ulcer Qualified Code(s): E11.622 - Type 2 diabetes mellitus with other skin ulcer (3) Diabetic neuropathy: CODE(S): E11.40 - Type 2 diabetes mellitus with diabetic neuropathy, unspecified QUALIFIERS: Diabetes mellitus type: type 2 Diabetes mellitus complication detail: diabetic polyneuropathy Qualified Code(s): E11.42 - Type 2 diabetes mellitus with diabetic polyneuropathy (4) Paroxysmal atrial fibrillation: CODE(S): I48.0 - Paroxysmal atrial fibrillation (5) Essential hypertension: CODE(S): I10 - Essential (primary) hypertension (6) Hyperlipidemia: CODE(S): E78.5 - Hyperlipidemia, unspecified QUALIFIERS: Hyperlipidemia type: unspecified Qualified Code(s): E78.5 - Hyperlipidemia, unspecified PLAN: Given the duration of the wound and failure of the wound to respond to standard wound care, we applied for advanced skin substitutes (Puraply, Nushield, Apligraf). The patient was approved for Puraply an Apligraf. Debridement performed today in clinic as annotated above. Puraply #1 applied today to the right foot ulcers. 100% of the product was used. 3M wrap applied for compression. At home wound-care instructions: Keep right lower extremity wraps and dressings clean and dry. These will be removed at your next appointment. Compression: Leave 3M in place until next visit. If wounds are draining through the wrap, please contact the wound healing center to schedule an appointment for a nurse visit for these to be changed. If anytime you experience numbness or discoloration of the toes but does not resolve with elevation of feet, contact the wound healing center or remove your wraps. Off-loading: Continue offloading shoe given by podiatry. The patient was instructed to avoid pressure and friction on the affected areas. Reposition every 2 hours at minimum. Avoid prolonged standing and/or dangling of legs. When seated, feet should be elevated at chest level. Frequent ambulation is encouraged. Diet: Patient encouraged to increase protein intake while taking caution to avoid high carbohydrate and/or sugar intake. Labs/cultures/imaging: Cultures deferred today. Patient reports he has a few days of doxycycline left to complete. Cultures and foot x-ray were collected with Dr. Rosales on 10/26/2020. Results will be requested for review. Foot x-ray, foot CT, and arterial studies were completed in September 2020 and reviewed as annotated above in HPI. Routine baseline lab work was reviewed (listed above) and unremarkable. Follow-up: Return to clinic in 1 week for re-evaluation with Gerber Ferguson NP?C. Return sooner or report to the emergency room should symptoms worsen, or new symptoms arise. Note: [employer] speech recognition restoration officer software was used to create portions of this document. Sound-alike and misspelled words, as well as other restoration officer errors may be contained in the documentation.
[2020-11-17 13:06] VITALS: BP 146/93; PULSE 82; RESP 16; TEMP 36.3; BMI 26.9
--- NOTE | 2020-11-21 21:00 | PN.PCM_ITS ---
History of Present Illness Date of Service: 11/17/20 Chief Complaint: Right foot wounds History of Wound: Samuel presents to the wound healing center today (11/04/20) for evaluation of a medial right foot ulcer and a lateral right foot ulcer. 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 The patient's ulcers onset around 09/20/20. He presented to Dr. Rosales's office and was referred to the [facility] emergency department for evaluation. He reports he had been wearing a pair of rubber boots which ru bbed his right foot and caused blisters which then developed into ulcers. He was admitted to the hospital and worked up and treated for his foot ulcers. While at the hospital, he received IV Zosyn. He had a foot x-ray on 09/19/20 which showed severe degenerative changes, but no signs of osteomyelitis. He had a lower extremity CT on 09/22/20 which did not demonstrate osteomyelitis. He had arterial studies of the bilateral lower extremities on 09/23/20 which did not demonstrate any arterial occlusive disease. His MRSA PCR was negative; his MSSA PCR was positive. He was discharged home on Augmentin x7 days. Since discharge from [facility] he has been following with Dr. Rosales weekly, where he has received debridement of his ulcers. He initially was using triple antibiotic ointment and gauze dressings daily to the ulcers of his right foot. Santyl was ordered, but due to cost the patient delayed treating with Santyl until the past 2-3 weeks. Since initiating Santyl, the patient has had improvement in the appearance of his foot ulcers. He has been using an Brandon wrap for compression to his right lower extremity. He attempts to keep his right foot elevated when possible. He was previously using Agustin for nutritional supplementation, however this was discontinued due to cost. On 09/26/20, the patient reports that a wound culture was collected and a foot x-ray was obtained. Results of these will be requested. Per the patient's report, the culture indicated susceptibility to doxycycline, and he is completing a 2-week course of doxycycline tomorrow. The patient was referred to the wound healing center for a second opinion, and consideration of advanced skin substitutes. Progress of Wound: Samuel returns today for follow-up of his right foot ulcers. He is accompanied today by his . Samuel ulcers have improved in size and appearance in the past week, and he has been compliant with wound care, he did well with first application of purapply AM. The patient denies fever, general malaise or poor appetite. The patient has not had increased redness, swelling, or purulent/malodorous drainage from affected area. Patient's lab work collected on 11/04/2020 revealed the following: CBCD: Unremarkable ESR: Normal Hemoglobin A1c 5.4% CRP: Normal prealbumin: Normal Objective Data Objective Data Vital Signs: Vital Signs Temp Pulse Resp BP 97.4 F L 82 16 146/93 H 11/17/20 13:06 11/17/20 13:06 11/17/20 13:06 11/17/20 13:06 Weight: 210 lb Body Mass Index (BMI) 26.9 Lab / Micro Data Result Diagrams: 11/04/20 12:21 Charges/Coding Procedures Integumentary 150xxx-152xx: [id number] Skin sub graft trnk/arm/leg Physical Exam Const alert, no apparent distress and healthy appearing General Appearance: cooperative, comfortable and well kempt Neck supple Resp normal respiratory effort Extremity normal capillary refill and no joint enlargement General Extremity: edema right lower extremity (2+ pitting edema of right foot) moderate; Negative for clubbing Skin Wounds: wounds noted No malodorous Wound Narrative: Right medial foot ulcer with marginal amount of slough and devitalized tissue, good granulation tissue present. No purulent or malodorous drainage. No tunneling, undermining, or probing to bone. No periulcer erythema, warmth, or tenderness to palpation Right lateral foot ulcer with moderate amount of slough and devitalized tissue present, with moderate amount of good granulation tissue present as well. No purulent or malodorous drainage. No tunneling, undermining, or probing to bone. Mild periulcer erythema. No warmth. No tenderness to palpation. Neuro moves all extremities Psych mental status grossly normal, cooperative and affect normal Debridement Note Debridement Note Post-Debridement Measurements and Additional Note: Post-Debridement Measurements/Treatment WC - Nurse 1 - General Ulcer Assessment Start: 11/04/20 10:12 Freq: Status: Active Protocol: WC.LOWEXT Activity Type Activity Date Activity User E-Sign Co-Sign Detail Recorded Client Recorded Date Recorded By Document 11/04/20 10:12 ML [id number] 11/04/20 10:39 ML Document 11/11/20 08:54 KR [id number] 11/11/20 09:02 KR Document 11/17/20 13:06 ML Desktop 11/17/20 13:18 ML 11/04/20 11/11/20 11/17/20 10:12 08:54 13:06 WC - Today's Visit Information Type of service Initial Visit Follow-up Visit Follow-up Visit (Physician/DATA LIBRARIAN (Physician/DATA LIBRARIAN ) ) Arrival Mode Ambulatory Ambulatory Ambulatory Transfer Assistance None Patient Identification Verified (Name & Yes Yes Yes ) Patient Requires Transmission-Based No No Precautions Safety Precautions NA NA Finger Stick Blood Sugar(mg/dl) (if 98 indicated): Blood Sugar Stated by Patient Height and Weight Height 6 ft 2 in Weight 210 lb Weight in Pounds 210.0 lbs Weight Measurement Method Stated by Patient Body Mass Index (BMI) 26.9 26.9 26.9 BMI Classification Overweight Overweight Overweight BSA - Vidya 2.22 Vital Signs Temperature (97.8 F-99.1 F) 97.3 F L 97.2 F L 97.4 F L Temperature Source Temporal Temporal Temporal Pulse Rate (60-100) 61 96 82 Pulse Location Monitor Monitor Monitor Respiratory Rate (12-18) 16 16 Respiratory rate source Observation Observation Blood Pressure (90/60-120/80) 145/85 H 165/81 H 146/93 H Blood Pressure Mean (mm Hg) 105 109 110 Source Monitor Monitor Monitor Position Sitting Semi-Fowlers Sitting Blood Pressure Location Right Arm Right Arm Left Arm History Since Last Visit- (Skip if this is Patient's initial visit) Have you changed medications since your No No No last visit? Any new allergies or adverse reactions No No No Had a fall/change in ADL's that may No No No increase risk of falls Signs or symptoms of abuse and/or No No No neglect since last visit Have you been in the hospital since your No No No last visit? Has dressing in place as prescribed Yes Yes Yes Has compression in place as prescribed N/A N/A N/A Has offloadiing in place as prescribed N/A N/A N/A Experienced any changes in pain level or No No No management Left Footwear Regular Shoe Regular Shoe Surgical Shoe with pressure relief insole Right Footwear Slipper Regular Shoe Regular Shoe Pain Scale: 0-10 Numeric Is Patient Pain Free? Yes Yes WC - Nurse 1 - General Ulcer Measurement Start: 11/04/20 10:12 Freq: Status: Active Protocol: Activity Type Activity Date Activity User E-Sign Co-Sign Detail Recorded Client Recorded Date Recorded By Document 11/04/20 10:12 ML [id number] 11/04/20 10:39 ML Document 11/11/20 08:54 KR [id number] 11/11/20 09:02 KR Document 11/17/20 13:06 ML Desktop 11/17/20 13:18 ML 11/04/20 11/11/20 11/17/20 10:12 08:54 13:06 Wound Center Nurse 1 #2 Lat right foot -Current Size (cm) - Length 4 3.9 3.5 -Current Size (cm) - Width 4.5 2 2 -Current Size (cm) - Depth 0.1 0.1 0.1 -Total Square Cm 18.0 7.8 7.0 -Exudate Amt Medium Medium Medium -Exudate Type Serosanguineous Serosanguineous Serosanguineous -Wound Margin Distinct, Distinct, Distinct, Outline Outline Outline Attached Attached Attached -Granulation Amt Medium (34-66%) Medium (34-66%) Medium (34-66%) -Granulation Quality Red Red -Slough/Fibrin Yes -Necrosis Amt Medium (34-66%) Small (1-33%) Medium (34-66%) -Necrotic Tissue Type Adherent Slough Adherent Slough -Texture (Priscilla-wound Skin Appearance) No Abnormality Assessed, No Abnormality Scarring -Moisture (Priscilla-wound Skin Appearance) No Abnormality No Abnormality, No Abnormality Assessed -Color (Priscilla-wound Skin Appearance) No Abnormality No Abnormality, No Abnormality Assessed -Temperature (Priscilla-wound Skin No Abnormality No Abnormality No Abnormality Appearance) (Pt Warm) (Pt Warm) (Pt Warm) -Tenderness on Palpation (Priscilla-wound No No Skin Appearance) -Ulcer Cleansing Wound Cleanser Rinsed/ Wound Cleanser Irrigated with Saline -Foul Odor after Cleansing No No -Anesthetic Used 4% Lidocaine 4% Lidocaine 4% Lidocaine Solution Solution Solution #1 Med right foot -Current Size (cm) - Length 2 0.9 1 -Current Size (cm) - Width 2 0.5 1 -Current Size (cm) - Depth 0.1 0.1 0.1 -Total Square Cm 4 0.45 1 -Exudate Amt Medium Small Small -Exudate Type Serosanguineous Serosanguineous Serous -Wound Margin Distinct, Distinct, Distinct, Outline Outline Outline Attached Attached Attached -Granulation Amt Medium (34-66%) Small (1-33%) Medium (34-66%) -Granulation Quality Red Red -Slough/Fibrin Yes -Necrosis Amt Medium (34-66%) None Present (0 Medium (34-66%) %) -Necrotic Tissue Type Adherent Slough Adherent Slough -Texture (Priscilla-wound Skin Appearance) No Abnormality Assessed, No Abnormality Scarring -Moisture (Priscilla-wound Skin Appearance) No Abnormality No Abnormality, No Abnormality Assessed -Color (Priscilla-wound Skin Appearance) No Abnormality No Abnormality, No Abnormality Assessed -Temperature (Priscilla-wound Skin No Abnormality No Abnormality No Abnormality Appearance) (Pt Warm) (Pt Warm) (Pt Warm) -Tenderness on Palpation (Priscilla-wound No Skin Appearance) -Ulcer Cleansing Wound Cleanser Rinsed/ Wound Cleanser Irrigated with Saline -Foul Odor after Cleansing No No -Anesthetic Used 4% Lidocaine 4% Lidocaine 4% Lidocaine Solution Solution Solution Right Calf (cm) 28 Right Ankle (cm) 23 WC - Nurse 2 - General Ulcer CM Notes Start: 11/04/20 10:12 Freq: Status: Active Protocol: Activity Type Activity Date Activity User E-Sign Co-Sign Detail Recorded Client Recorded Date Recorded By Document 11/04/20 12:20 PL [id number] 11/04/20 12:23 PL Document 11/11/20 12:46 PL [id number] 11/11/20 12:55 PL Document 11/17/20 16:09 PL [id number] 11/17/20 16:13 PL 11/04/20 11/11/20 11/17/20 12:20 12:46 16:09 Wound Center Nurse 2 #2 Lat right foot -Time 11:10 09:29 13:28 -Correct Patient Yes Yes Yes -Correct Side, Site, Position Yes Yes Yes -Correct Procedure Yes Yes Yes -Procedure Performed Yes Yes Yes -Type of Procedure Debridement Debridement Debridement -Clinical Debridement Subcutaneous Subcutaneous Subcutaneous -Tissue Removed Subcutaneous Subcutaneous Subcutaneous -Post Debridement (cm) - Length 4.5 4.2 2 -Post Debridement (cm) - Width 3.0 0.7 3.5 -Post Debridement (cm) - Depth 0.1 0.1 0.2 -Total Square (Post) (cm) 13.50 2.94 7.0 -Area of Debridement (cm) - Length 4.5 4.2 2.0 -Area of Debridement (cm) - Width 3.0 0.7 3.5 -Total Square (Area) (cm) 13.50 2.94 7.00 -Tunneling No No No -Undermining/Tunneling No No No -Circular Undermining No No No -Wound/Ulcer Outcome Not Healed Not Healed Not Healed -Ulcer Cleansing Rinsed/ Rinsed/ Rinsed/ Irrigated with Irrigated with Irrigated with Saline Saline Saline -Foul Odor after Cleansing No No No -Bioengineered Tissue No Yes Yes -Type of Bioengineered Tissue PuraPly AM PuraPly AM -Expiration Date 10/23/22 10/23/22 -Product Lot Number [id number] -Percent Used 100 100 -Lot number of Saline Used [id number] -Bleeding Controlled with Pressure Pressure -Treatment Response Procedure Procedure Tolerated Well Tolerated Well -Debridement - Subq, 1st 20sq cm Yes No No -Apply Skin Sub - 1st 25 sq cm - Feet 1 1 -PuraPly AM (per sq cm) 16 16 #1 Med right foot -Time 11:10 09:29 13:28 -Correct Patient Yes Yes Yes -Correct Side, Site, Position Yes Yes Yes -Correct Procedure Yes Yes Yes -Procedure Performed Yes Yes Yes -Type of Procedure Debridement Debridement Debridement -Clinical Debridement Subcutaneous Subcutaneous Subcutaneous -Tissue Removed Subcutaneous Subcutaneous Subcutaneous -Post Debridement (cm) - Length 1.5 1.2 1.0 -Post Debridement (cm) - Width 1.8 1.0 1.0 -Post Debridement (cm) - Depth 0.1 0.1 0.1 -Total Square (Post) (cm) 2.70 1.20 1.00 -Area of Debridement (cm) - Length 1.5 1.2 1.0 -Area of Debridement (cm) - Width 1.8 1.0 1.0 -Total Square (Area) (cm) 2.70 1.20 1.00 -Tunneling No No No -Undermining/Tunneling No No No -Circular Undermining No No No -Wound/Ulcer Outcome Not Healed Not Healed Not Healed -Ulcer Cleansing Rinsed/ Rinsed/ Rinsed/ Irrigated with Irrigated with Irrigated with Saline Saline Saline -Foul Odor after Cleansing No No No -Bioengineered Tissue No No No -Debridement - Subq, 1st 20sq cm No No No Pain Scale: 0-10 Numeric Is Patient Pain Free? Yes Yes Yes - Nurse 3 - General Ulcer D/C NN Start: 11/04/20 10:12 Freq: Status: Active Protocol: Activity Type Activity Date Activity User E-Sign Co-Sign Detail Recorded Client Recorded Date Recorded By Document 11/04/20 11:33 ML [id number] 11/04/20 11:35 ML Document 11/11/20 12:46 PL [id number] 11/11/20 12:55 PL Document 11/17/20 16:14 PL [id number] 11/17/20 16:16 PL 11/04/20 11/11/20 11/17/20 11:33 12:46 16:14 Wound Care Nurse 3 #2 Lat right foot -Ulcer Cleansing Rinsed/ Rinsed/ Irrigated with Irrigated with Saline Saline -Foul Odor after Cleansing No -Other Dressing hydrogel ABD -Primary Dressing Covered/Secured with Dry Gauze,Dry Gauze & Roll Gauze,Secured with Tape #1 Med right foot -Ulcer Cleansing Rinsed/ Rinsed/ Rinsed/ Irrigated with Irrigated with Irrigated with Saline Saline Saline -Foul Odor after Cleansing No No No -Primary Dressing Applied Promogran -Other Dressing ABD ABD -Primary Dressing Covered/Secured with Dry Gauze,Dry Gauze & Roll Gauze,Secured with Tape -Promogran 1 Right -Multi-Layered Wrap Application Multi-Layer Multi-Layer Comp - Right ($ Comp - Right ($ ) ) Pain Scale: 0-10 Numeric Is Patient Pain Free? Yes Yes Yes Teaching: Wound Center *Welcome to the Wound Center -Person Taught Patient,Family -Teaching Method Discussion -Response to teaching Verbalize understanding WC - Visit Discharge Discharge Condition Stable Stable Stable Ambulatory Status Ambulatory Ambulatory Ambulatory Transportation Private Auto Private Auto Medication Reconcilliation completed & No provided to patient/care provider Clinical Summary of Care Provided Yes Yes Yes Wound debrided: right diabetic foot ulcer Laterality: Right Wound Grade/Stage: teresa 2 Type of Debridement: Excisional debridement Anesthesia Used: 4% Lidocaine Solution Depth: Down to and including healthy tissue and in the subcutaneous layer Percentage of wound debrided: 100 Instrument Used: 5mm curette Tissue Removed: slough and devitalized tissue Severity: Fat Layer Exposed Amount of bleeding with debridement: Mild Bleeding Controlled with: Pressure Patient tolerated procedure: Patient tolerated procedure well Assessment/Plan Assessment/Plan (1) Diabetic foot ulcer associated with type 2 diabetes mellitus, with fat layer exposed: CODE(S): E11.621 - Type 2 diabetes mellitus with foot ulcer; L97.502 - Non-pressure chronic ulcer of other part of unspecified foot with fat layer exposed QUALIFIERS: Diabetic foot ulcer location: midfoot Laterality: right Qualified Code(s): E11.621 - Type 2 diabetes mellitus with foot ulcer; L97.412 - 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 exposed (2) Type 2 diabetes mellitus: CODE(S): E11.9 - Type 2 diabetes mellitus without complications QUALIFIERS: Diabetes mellitus nursing home insulin use: without nursing home use Diabetes mellitus complication status: with skin complications Diabetes mellitus complication detail: with other skin ulcer Qualified Code(s): E11.622 - Type 2 diabetes mellitus with other skin ulcer (3) Diabetic neuropathy: CODE(S): E11.40 - Type 2 diabetes mellitus with diabetic neuropathy, unspecified QUALIFIERS: Diabetes mellitus type: type 2 Diabetes mellitus complication detail: diabetic polyneuropathy Qualified Code(s): E11.42 - Type 2 diabetes mellitus with diabetic polyneuropathy (4) Paroxysmal atrial fibrillation: CODE(S): I48.0 - Paroxysmal atrial fibrillation (5) Essential hypertension: CODE(S): I10 - Essential (primary) hypertension (6) Hyperlipidemia: CODE(S): E78.5 - Hyperlipidemia, unspecified QUALIFIERS: Hyperlipidemia type: unspecified Qualified Code(s): E78.5 - Hyperlipidemia, unspecified PLAN: Given the duration of the wound and failure of the wound to respond to standard wound care, we applied for advanced skin substitutes (P uraply, Nushield, Apligraf). The patient was approved for Puraply an Apligraf. Debridement performed today in clinic as annotated above. Puraply #2 applied today to the right foot ulcers. 100% of the product was used. 3M wrap applied for compression. At home wound-care instructions: Keep right lower extremity wraps and dressings clean and dry. These will be removed at your next appointment. Compression: Leave 3M in place until next visit. If wounds are draining through the wrap, please contact the wound healing center to schedule an appointment for a nurse visit for these to be changed. If anytime you experience numbness or discoloration of the toes but does not resolve with elevation of feet, contact the wound healing center or remove your wraps. Off-loading: Continue offloading shoe given by podiatry. The patient was instructed to avoid pressure and friction on the affected areas. Reposition every 2 hours at minimum. Avoid prolonged standing and/or dangling of legs. When seated, feet should be elevated at chest level. Frequent ambulation is encouraged. Diet: Patient encouraged to increase protein intake while taking caution to avoid high carbohydrate and/or sugar intake. Labs/cultures/imaging: Cultures deferred today. Patient reports he has a few days of doxycycline left to complete. Cultures and foot x-ray were collected with Dr. Rosales on 10/26/2020. Results will be requested for review. Foot x-ray, foot CT, and arterial studies were completed in September 2020 and reviewed as annotated above in HPI. Routine baseline lab work was reviewed (listed above) and unremarkable. Follow-up: Return to clinic in 1 week for re-evaluation with HUMBERTO Gamino?C. Return sooner or report to the emergency room should symptoms worsen, or new symptoms arise. Note: [employer] speech recognition linen controller software was used to create portions of this document. Sound-alike and misspelled words, as well as other linen controller errors may be contained in the documentation.
[2020-11-25 08:29] VITALS: BP 142/69; PULSE 93; RESP 16; TEMP 36.7; BMI 26.9
--- NOTE | 2020-11-25 11:48 | PCM.WC.PN ---
History of Present Illness Date of Service: 11/25/20 Chief Complaint: Right foot wounds History of Wound: Samuel presents to the wound healing center today (11/04/20) for evaluation of a medial right foot ulcer and a lateral right foot ulcer. 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 The patient's ulcers onset around 09/20/20. He presented to Dr. Rosales's office and was referred to the [facility] emergency department for evaluation. He reports he had been wearing a pair of rubber boots which rubbed his right foot and caused blisters which then developed into ulcers. He was admitted to the hospital and worked up and treated for his foot ulcers. While at the hospital, he received IV Zosyn. He had a foot x-ray on 09/19/20 which showed severe degenerative changes, but no signs of osteomyelitis. He had a lower extremity CT on 09/22/20 which did not demonstrate osteomyelitis. He had arterial studies of the bilateral lower extremities on 09/23/20 which did not demonstrate any arterial occlusive disease. His MRSA PCR was negative; his MSSA PCR was positive. He was discharged home on Augmentin x7 days. Since discharge from [facility] he has been following with Dr. Rosales weekly, where he has received debridement of his ulcers. He initially was using triple antibiotic ointment and gauze dressings daily to the ulcers of his right foot. Santyl was ordered, but due to cost the patient delayed treating with Santyl until the past 2-3 weeks. Since initiating Santyl, the patient has had improvement in the appearance of his foot ulcers. He has been using an Brandon wrap for compression to his right lower extremity. He attempts to keep his right foot elevated when possible. He was previously using Agustin for nutritional supplementation, however this was discontinued due to cost. On 09/26/20, the patient reports that a wound culture was collected and a foot x-ray was obtained. Results of these will be requested. Per the patient's report, the culture indicated susceptibility to doxycycline, and he is completing a 2-week course of doxycycline tomorrow. The patient was referred to the wound healing center for a second opinion, and consideration of advanced skin substitutes. Progress of Wound: Samuel returns today for follow-up of his right foot ulcers. He is accompanied today by his . Samuel ulcers have improved in size and appearance in the past week, and he has been compliant with wound care. He did well with his first 2 applications of Puraply AM. He has some erythema surrounding his right lateral foot ulcer, which appears to be dermatitis possibly related to his Adaptic touch dressing. The patient denies fever, general malaise or poor appetite. The patient has not had increased redness, swelling, or purulent/malodorous drainage from affected area. Objective Data Objective Data Vital Signs: Vital Signs Temp Pulse Resp BP 98.0 F 93 16 142/69 H 11/25/20 08:29 11/25/20 08:29 11/25/20 08:29 11/25/20 08:29 Weight: 210 lb Body Mass Index (BMI) 26.9 Lab / Micro Data Result Diagrams: 11/04/20 12:21 Charges/Coding Procedures Integumentary 150xxx-152xx: [id number] Skin sub graft face/nk/hf/g Physical Exam Const alert, no apparent distress and healthy appearing General Appearance: cooperative, comfortable and well kempt Neck supple Resp normal respiratory effort Extremity normal capillary refill and no joint enlargement General Extremity: edema right lower extremity (Trace pitting edema of right foot) trace; Negative for clubbing Skin Rashes: rashes noted Right dorsal foot Narrative: Dermatitic type rash of the right dorsal foot, suspected late due to adhesive from Adaptic touch, or skin prep. Wounds: wounds noted No malodorous Wound Narrative: Right medial foot ulcer with marginal amount of slough and devitalized tissue, good granulation tissue present. No purulent or malodorous drainage. No tunneling, undermining, or probing to bone. No periulcer erythema, warmth, or tenderness to palpation Right lateral foot ulcer with small to moderate amount of slough and devitalized tissue present, with moderate amount of good granulation tissue present as well. No purulent or malodorous drainage. No tunneling, undermining, or probing to bone. Mild periulcer erythema. No warmth. No tenderness to palpation. Neuro moves all extremities Psych mental status grossly normal, cooperative and affect normal Debridement Note Debridement Note Post-Debridement Measurements and Additional Note: Post-Debridement Measurements/Treatment WC - Nurse 1 - General Ulcer Assessment Start: 11/04/20 10:12 Freq: Status: Active Protocol: SAHIL Activity Type Activity Date Activity User E-Sign Co-Sign Detail Recorded Client Recorded Date Recorded By Document 11/04/20 10:12 ML [id number] 11/04/20 10:39 ML Document 11/11/20 08:54 KR [id number] 11/11/20 09:02 KR Document 11/17/20 13:06 ML Desktop 11/17/20 13:18 ML Document 11/25/20 08:29 JF [id number] 11/25/20 08:35 JF 11/04/20 11/11/20 11/17/20 10:12 08:54 13:06 WC - Today's Visit Information Type of service Initial Visit Follow-up Visit Follow-up Visit (Physician/AUTOMATION QA LEAD (Physician/AUTOMATION QA LEAD ) ) Arrival Mode Ambulatory Ambulatory Ambulatory Transfer Assistance None Patient Identification Verified (Name & Yes Yes Yes ) Patient Requires Transmission-Based No No Precautions Safety Precautions NA NA Finger Stick Blood Sugar(mg/dl) (if 98 indicated): Blood Sugar Stated by Patient Height and Weight Height 6 ft 2 in Weight 210 lb Weight in Pounds 210.0 lbs Weight Measurement Method Stated by Patient Body Mass Index (BMI) 26.9 26.9 26.9 BMI Classification Overweight Overweight Overweight BSA - Vidya 2.22 Vital Signs Temperature (97.8 F-99.1 F) 97.3 F L 97.2 F L 97.4 F L Temperature Source Temporal Temporal Temporal Pulse Rate (60-100) 61 96 82 Pulse Location Monitor Monitor Monitor Respiratory Rate (12-18) 16 16 Respiratory rate source Observation Observation Blood Pressure (90/60-120/80) 145/85 H 165/81 H 146/93 H Blood Pressure Mean (mm Hg) 105 109 110 Source Monitor Monitor Monitor Position Sitting Semi-Fowlers Sitting Blood Pressure Location Right Arm Right Arm Left Arm History Since Last Visit- (Skip if this is Patient's initial visit) Have you changed medications since your No No No last visit? Any new allergies or adverse reactions No No No Had a fall/change in ADL's that may No No No increase risk of falls Signs or symptoms of abuse and/or No No No neglect since last visit Have you been in the hospital since your No No No last visit? Has dressing in place as prescribed Yes Yes Yes Has compression in place as prescribed N/A N/A N/A Has offloadiing in place as prescribed N/A N/A N/A Experienced any changes in pain level or No No No management Left Footwear Regular Shoe Regular Shoe Surgical Shoe with pressure relief insole Right Footwear Slipper Regular Shoe Regular Shoe Pain Scale: 0-10 Numeric Is Patient Pain Free? Yes Yes 11/25/20 08:29 WC - Today's Visit Information Type of service Follow-up Visit (Physician/AUTOMATION QA LEAD ) Arrival Mode Ambulatory Transfer Assistance Patient Identification Verified (Name & Yes ) Patient Requires Transmission-Based No Precautions Safety Precautions Finger Stick Blood Sugar(mg/dl) (if 103 indicated): Blood Sugar Stated by Patient Height and Weight Height Weight Weight in Pounds Weight Measurement Method Body Mass Index (BMI) 26.9 BMI Classification Overweight [facility] - Vidya Vital Signs Temperature (97.8 F-99.1 F) 98.0 F Temperature Source Temporal Pulse Rate (60-100) 93 Pulse Location Monitor Respiratory Rate (12-18) 16 Respiratory rate source Observation Blood Pressure (90/60-120/80) 142/69 H Blood Pressure Mean (mm Hg) 93 Source Position Semi-Fowlers Blood Pressure Location Left Arm History Since Last Visit- (Skip if this is Patient's initial visit) Have you changed medications since your No last visit? Any new allergies or adverse reactions No Had a fall/change in ADL's that may increase risk of falls Signs or symptoms of abuse and/or No neglect since last visit Have you been in the hospital since your No last visit? Has dressing in place as prescribed Yes Has compression in place as prescribed Yes Has offloadiing in place as prescribed N/A Experienced any changes in pain level or No management Left Footwear Regular Shoe Right Footwear Regular Shoe Pain Scale: 0-10 Numeric Is Patient Pain Free? Yes - Nurse 1 - General Ulcer Measurement Start: 11/04/20 10:12 Freq: Status: Active Protocol: Activity Type Activity Date Activity User E-Sign Co-Sign Detail Recorded Client Recorded Date Recorded By Document 11/04/20 10:12 ML [id number] 11/04/20 10:39 ML Document 11/11/20 08:54 KR [id number] 11/11/20 09:02 KR Document 11/17/20 13:06 ML Desktop 11/17/20 13:18 ML Document 11/25/20 08:29 JF [id number] 11/25/20 08:35 JF 11/04/20 11/11/20 11/17/20 10:12 08:54 13:06 Wound Center Nurse 1 #2 Lat right foot -Combined with other wound -Current Size (cm) - Length 4 3.9 3.5 -Current Size (cm) - Width 4.5 2 2 -Current Size (cm) - Depth 0.1 0.1 0.1 -Total Square Cm 18.0 7.8 7.0 -Photo Taken -Epithelialization -Tunneling -Circular Undermining -Exudate Amt Medium Medium Medium -Exudate Type Serosanguineous Serosanguineous Serosanguineous -Wound Margin Distinct, Distinct, Distinct, Outline Outline Outline Attached Attached Attached -Granulation Amt Medium (34-66%) Medium (34-66%) Medium (34-66%) -Granulation Quality Red Red -Slough/Fibrin Yes -Necrosis Amt Medium (34-66%) Small (1-33%) Medium (34-66%) -Necrotic Tissue Type Adherent Slough Adherent Slough -Structure Exposed -Texture (Priscilla-wound Skin Appearance) No Abnormality Assessed, No Abnormality Scarring -Moisture (Priscilla-wound Skin Appearance) No Abnormality No Abnormality, No Abnormality Assessed -Color (Priscilla-wound Skin Appearance) No Abnormality No Abnormality, No Abnormality Assessed -Temperature (Priscilla-wound Skin No Abnormality No Abnormality No Abnormality Appearance) (Pt Warm) (Pt Warm) (Pt Warm) -Tenderness on Palpation (Priscilla-wound No No Skin Appearance) -Ulcer Cleansing Wound Cleanser Rinsed/ Wound Cleanser Irrigated with Saline -Foul Odor after Cleansing No No -Anesthetic Used 4% Lidocaine 4% Lidocaine 4% Lidocaine Solution Solution Solution #1 Med right foot -Combined with other wound -Current Size (cm) - Length 2 0.9 1 -Current Size (cm) - Width 2 0.5 1 -Current Size (cm) - Depth 0.1 0.1 0.1 -Total Square Cm 4 0.45 1 -Photo Taken -Tunneling -Undermining/Tunneling -Circular Undermining -Exudate Amt Medium Small Small -Exudate Type Serosanguineous Serosanguineous Serous -Wound Margin Distinct, Distinct, Distinct, Outline Outline Outline Attached Attached Attached -Granulation Amt Medium (34-66%) Small (1-33%) Medium (34-66%) -Granulation Quality Red Red -Slough/Fibrin Yes -Necrosis Amt Medium (34-66%) None Present (0 Medium (34-66%) %) -Necrotic Tissue Type Adherent Slough Adherent Slough -Structure Exposed -Texture (Priscilla-wound Skin Appearance) No Abnormality Assessed, No Abnormality Scarring -Moisture (Priscilla-wound Skin Appearance) No Abnormality No Abnormality, No Abnormality Assessed -Color (Priscilla-wound Skin Appearance) No Abnormality No Abnormality, No Abnormality Assessed -Temperature (Priscilla-wound Skin No Abnormality No Abnormality No Abnormality Appearance) (Pt Warm) (Pt Warm) (Pt Warm) -Tenderness on Palpation (Priscilla-wound No Skin Appearance) -Ulcer Cleansing Wound Cleanser Rinsed/ Wound Cleanser Irrigated with Saline -Foul Odor after Cleansing No No -Anesthetic Used 4% Lidocaine 4% Lidocaine 4% Lidocaine Solution Solution Solution Lower Limb Edema Present Right Calf (cm) 28 Right Ankle (cm) 11/25/20 08:29 Wound Center Nurse 1 #2 Lat right foot -Combined with other wound No -Current Size (cm) - Length 1.9 -Current Size (cm) - Width 3.5 -Current Size (cm) - Depth 0.3 -Total Square Cm 6.65 -Photo Taken No -Epithelialization Small 1-33% -Tunneling No -Circular Undermining No -Exudate Amt Medium -Exudate Type Serosanguineous -Wound Margin Fibrotic Scar, Thickened Scar -Granulation Amt Large (67-100%) -Granulation Quality Red -Slough/Fibrin Yes -Necrosis Amt Small (1-33%) -Necrotic Tissue Type Adherent Slough -Structure Exposed N/A -Texture (Priscilla-wound Skin Appearance) Assessed, Friable,Rash -Moisture (Priscilla-wound Skin Appearance) Assessed,Dry/ Scaly -Color (Priscilla-wound Skin Appearance) Assessed -Temperature (Priscilla-wound Skin Appearance) -Tenderness on Palpation (Priscilla-wound No Skin Appearance) -Ulcer Cleansing -Foul Odor after Cleansing No -Anesthetic Used 4% Lidocaine Solution #1 Med right foot -Combined with other wound No -Current Size (cm) - Length 0.5 -Current Size (cm) - Width 0.5 -Current Size (cm) - Depth 0.1 -Total Square Cm 0.25 -Photo Taken No -Tunneling No -Undermining/Tunneling No -Circular Undermining No -Exudate Amt Small -Exudate Type -Wound Margin Flat & Intact -Granulation Amt Large (67-100%) -Granulation Quality -Slough/Fibrin -Necrosis Amt Small (1-33%) -Necrotic Tissue Type Adherent Slough -Structure Exposed N/A -Texture (Priscilla-wound Skin Appearance) Assessed -Moisture (Priscilla-wound Skin Appearance) Assessed,Dry/ Scaly -Color (Priscilla-wound Skin Appearance) -Temperature (Priscilla-wound Skin No Abnormality Appearance) (Pt Warm) -Tenderness on Palpation (Priscilla-wound Skin Appearance) -Ulcer Cleansing Wound Cleanser -Foul Odor after Cleansing -Anesthetic Used 4% Lidocaine Solution Lower Limb Edema Present Yes Right Calf (cm) 30.5 Right Ankle (cm) 19.0 WC - Nurse 2 - General Ulcer CM Notes Start: 11/04/20 10:12 Freq: Status: Active Protocol: Activity Type Activity Date Activity User E-Sign Co-Sign Detail Recorded Client Recorded Date Recorded By Document 11/04/20 12:20 PL [id number] 11/04/20 12:23 PL Document 11/11/20 12:46 PL [id number] 11/11/20 12:55 PL Document 11/17/20 16:09 PL [id number] 11/17/20 16:13 PL 11/04/20 11/11/20 11/17/20 12:20 12:46 16:09 Wound Center Nurse 2 #2 Lat right foot -Time 11:10 09:29 13:28 -Correct Patient Yes Yes Yes -Correct Side, Site, Position Yes Yes Yes -Correct Procedure Yes Yes Yes -Procedure Performed Yes Yes Yes -Type of Procedure Debridement Debridement Debridement -Clinical Debridement Subcutaneous Subcutaneous Subcutaneous -Tissue Removed Subcutaneous Subcutaneous Subcutaneous -Post Debridement (cm) - Length 4.5 4.2 2 -Post Debridement (cm) - Width 3.0 0.7 3.5 -Post Debridement (cm) - Depth 0.1 0.1 0.2 -Total Square (Post) (cm) 13.50 2.94 7.0 -Area of Debridement (cm) - Length 4.5 4.2 2.0 -Area of Debridement (cm) - Width 3.0 0.7 3.5 -Total Square (Area) (cm) 13.50 2.94 7.00 -Tunneling No No No -Undermining/Tunneling No No No -Circular Undermining No No No -Wound/Ulcer Outcome Not Healed Not Healed Not Healed -Ulcer Cleansing Rinsed/ Rinsed/ Rinsed/ Irrigated with Irrigated with Irrigated with Saline Saline Saline -Foul Odor after Cleansing No No No -Bioengineered Tissue No Yes Yes -Type of Bioengineered Tissue PuraPly AM PuraPly AM -Expiration Date 10/23/22 10/23/22 -Product Lot Number [id number] -Percent Used 100 100 -Lot number of Saline Used [id number] -Bleeding Controlled with Pressure Pressure -Treatment Response Procedure Procedure Tolerated Well Tolerated Well -Debridement - Subq, 1st 20sq cm Yes No No -Apply Skin Sub - 1st 25 sq cm - Feet 1 1 -PuraPly AM (per sq cm) 16 16 #1 Med right foot -Time 11:10 09:29 13:28 -Correct Patient Yes Yes Yes -Correct Side, Site, Position Yes Yes Yes -Correct Procedure Yes Yes Yes -Procedure Performed Yes Yes Yes -Type of Procedure Debridement Debridement Debridement -Clinical Debridement Subcutaneous Subcutaneous Subcutaneous -Tissue Removed Subcutaneous Subcutaneous Subcutaneous -Post Debridement (cm) - Length 1.5 1.2 1.0 -Post Debridement (cm) - Width 1.8 1.0 1.0 -Post Debridement (cm) - Depth 0.1 0.1 0.1 -Total Square (Post) (cm) 2.70 1.20 1.00 -Area of Debridement (cm) - Length 1.5 1.2 1.0 -Area of Debridement (cm) - Width 1.8 1.0 1.0 -Total Square (Area) (cm) 2.70 1.20 1.00 -Tunneling No No No -Undermining/Tunneling No No No -Circular Undermining No No No -Wound/Ulcer Outcome Not Healed Not Healed Not Healed -Ulcer Cleansing Rinsed/ Rinsed/ Rinsed/ Irrigated with Irrigated with Irrigated with Saline Saline Saline -Foul Odor after Cleansing No No No -Bioengineered Tissue No No No -Debridement - Subq, 1st 20sq cm No No No Pain Scale: 0-10 Numeric Is Patient Pain Free? Yes Yes Yes WC - Nurse 3 - General Ulcer D/C NN Start: 11/04/20 10:12 Freq: Status: Active Protocol: Activity Type Activity Date Activity User E-Sign Co-Sign Detail Recorded Client Recorded Date Recorded By Document 11/04/20 11:33 ML [id number] 11/04/20 11:35 ML Document 11/11/20 12:46 PL [id number] 11/11/20 12:55 PL Document 11/17/20 16:14 PL [id number] 11/17/20 16:16 PL Document 11/25/20 09:16 JF [id number] 11/25/20 09:16 JF 11/04/20 11/11/20 11/17/20 11:33 12:46 16:14 Wound Care Nurse 3 #2 Lat right foot -Ulcer Cleansing Rinsed/ Rinsed/ Irrigated with Irrigated with Saline Saline -Foul Odor after Cleansing No -Primary Dressing Applied -Other Dressing hydrogel ABD -Primary Dressing Covered/Secured with Dry Gauze,Dry Gauze & Roll Gauze,Secured with Tape #1 Med right foot -Ulcer Cleansing Rinsed/ Rinsed/ Rinsed/ Irrigated with Irrigated with Irrigated with Saline Saline Saline -Foul Odor after Cleansing No No No -Primary Dressing Applied Promogran -Other Dressing ABD ABD -Primary Dressing Covered/Secured with Dry Gauze,Dry Gauze & Roll Gauze,Secured with Tape -Promogran 1 Right -Multi-Layered Wrap Application Multi-Layer Multi-Layer Comp - Right ($ Comp - Right ($ ) ) Pain Scale: 0-10 Numeric Is Patient Pain Free? Yes Yes Yes Teaching: Wound Center *Welcome to the Wound Center -Person Taught Patient,Family -Teaching Method Discussion -Response to teaching Verbalize understanding WC - Visit Discharge Discharge Condition Stable Stable Stable Ambulatory Status Ambulatory Ambulatory Ambulatory Transportation Private Auto Private Auto Accompanied by Medication Reconcilliation completed & No provided to patient/care provider Clinical Summary of Care Provided Yes Yes Yes 11/25/20 09:16 Wound Care Nurse 3 #2 Lat right foot -Ulcer Cleansing -Foul Odor after Cleansing -Primary Dressing Applied C Hydrogel ($) -Other Dressing -Primary Dressing Covered/Secured with Dry Gauze #1 Med right foot -Ulcer Cleansing -Foul Odor after Cleansing -Primary Dressing Applied C Hydrogel ($) -Other Dressing -Primary Dressing Covered/Secured with Dry Gauze -Promogran Right -Multi-Layered Wrap Application Multi-Layer Comp - Right ($ ) Pain Scale: 0-10 Numeric Is Patient Pain Free? Yes Teaching: Wound Center *Welcome to the Wound Center -Person Taught -Teaching Method -Response to teaching WC - Visit Discharge Discharge Condition Stable Ambulatory Status Ambulatory Transportation Private Auto Accompanied by Medication Reconcilliation completed & Yes provided to patient/care provider Clinical Summary of Care Provided Yes Wound debrided: Right medial foot ulcer Laterality: Right Wound Grade/Stage: Choudhary 1 Type of Debridement: Excisional debridement Anesthesia Used: 5% Lidocaine Gel Depth: Down to and including healthy tissue Percentage of wound debrided: 100 Instrument Used: 3mm curette Tissue Removed: Slough and devitalized tissue Severity: Limited To Skin Breakdown Amount of bleeding with debridement: Mild Bleeding Controlled with: Pressure Patient tolerated procedure: Patient tolerated procedure well Additional Wound Wound debrided: Right lateral foot ulcer Laterality: Right Wound Grade/Stage: Choudhary 1 Type of Debridement: Excisional debridement Anesthesia Used: 5% Lidocaine Gel Depth: in the subcutaneous layer Percentage of wound debrided: 100 Instrument Used: 7mm curette Tissue Removed: Slough and devitalized tissue Severity: Fat Layer Exposed Amount of bleeding with debridement: Moderate Bleeding Controlled with: Compression and gauze Patient tolerated procedure: Patient tolerated procedure well Assessment/Plan Assessment/Plan (1) Diabetic foot ulcer associated with type 2 diabetes mellitus, with fat layer exposed: CODE(S): E11.621 - Type 2 diabetes mellitus with foot ulcer; L97.502 - Non-pressure chronic ulcer of other part of unspecified foot with fat layer exposed QUALIFIERS: Diabetic foot ulcer location: midfoot Laterality: right Qualified Code(s): E11.621 - Type 2 diabetes mellitus with foot ulcer; L97.412 - 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 exposed (2) Type 2 diabetes mellitus: CODE(S): E11.9 - Type 2 diabetes mellitus without complications QUALIFIERS: 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 insulin use: without residential use Diabetes mellitus complication status: with skin complications Diabetes mellitus complication detail: with other skin ulcer Qualified Code(s): E11.622 - Type 2 diabetes mellitus with other skin ulcer (3) Diabetic neuropathy: CODE(S): E11.40 - Type 2 diabetes mellitus with diabetic neuropathy, unspecified QUALIFIERS: Diabetes mellitus type: type 2 Diabetes mellitus complication detail: diabetic polyneuropathy Qualified Code(s): E11.42 - Type 2 diabetes mellitus with diabetic polyneuropathy (4) Paroxysmal atrial fibrillation: CODE(S): I48.0 - Paroxysmal atrial fibrillation (5) Essential hypertension: CODE(S): I10 - Essential (primary) hypertension (6) Hyperlipidemia: CODE(S): E78.5 - Hyperlipidemia, unspecified QUALIFIERS: Hyperlipidemia type: unspecified Qualified Code(s): E78.5 - Hyperlipidemia, unspecified PLAN: Given the duration of the wound and failure of the wound to respond to standard wound care, we applied for advanced skin substitutes (Puraply, Nushield, Apligraf). The patient was approved for Puraply and Apligraf. Debridement performed today in clinic as annotated above. Puraply #3 applied today to the right foot ulcers. 100% of the product was used. A wound veil and Steri-Strips were used to cover PuraPly AM due to possible previous reaction to Adaptic touch. A thin layer of hydrogel was applied to areas of dermatitis on the patient's right foot. 3M wrap applied for compression. At home wound-care instructions: Keep right lower extremity wraps and dressings clean and dry. These will be removed at your next appointment. If 3M's begin to loosen or fall, please contact the wound healing center and a nurse visit may be scheduled for these to be reapplied. Compression: Leave 3M in place until next visit. If wounds are draining through the wrap, please contact the wound healing center to schedule an appointment for a nurse visit for these to be changed. If anytime you experience numbness or discoloration of the toes but does not resolve with elevation of feet, contact the wound healing center or remove your wraps. Off-loading: Continue offloading shoe given by podiatry. The patient was instructed to avoid pressure and friction on the affected areas. Reposition every 2 hours at minimum. Avoid prolonged standing and/or dangling of legs. When seated, feet should be elevated at chest level. Frequent ambulation is encouraged. Diet: Patient encouraged to increase protein intake while taking caution to avoid high carbohydrate and/or sugar intake. Labs/cultures/imaging: Cultures deferred today. Patient has completed a course of doxycycline. Cultures and foot x-ray were collected with Dr. Rosales on 10/26/2020. Results will be requested for review. Foot x-ray, foot CT, and arterial studies were completed in September 2020 and reviewed as annotated above in HPI. Patient's lab work collected on 11/04/2020 revealed the following: CBCD: Unremarkable ESR: Normal Hemoglobin A1c 5.4% CRP: Normal prealbumin: Normal Follow-up: Return to clinic in 1 week for re-evaluation with Gerber Ferguson NP?C. Return sooner or report to the emergency room should symptoms worsen, or new symptoms arise. Note: [employer] speech recognition contact center associate software was used to create portions of this document. Sound-alike and misspelled words, as well as other contact center associate errors may be contained in the documentation.
== END 2020-11-30 23:59 ==
LOC: WC 08:30
PROVIDERS: PCP Family Medicine; Referring Provider Podiatrist Foot & Ankle Surgery; Visit Provider Nurse Practitioner Family
DX: E11.621 Type 2 diabetes mellitus with foot ulcer (principal); L97.512 Non-pressure chronic ulcer of other part of right foot with fat layer exposed; L97.412 Non-pressure chronic ulcer of right heel and midfoot with fat layer exposed; E11.42 Type 2 diabetes mellitus with diabetic polyneuropathy; E11.610 Type 2 diabetes mellitus with diabetic neuropathic arthropathy; I48.0 Paroxysmal atrial fibrillation; E78.5 Hyperlipidemia, unspecified; I10 Essential (primary) hypertension; Z95.0 Presence of cardiac pacemaker; Z79.01 Long term (current) use of anticoagulants; K21.9 Gastro-esophageal reflux disease without esophagitis; F32.9 Major depressive disorder, single episode, unspecified; F41.9 Anxiety disorder, unspecified; N40.0 Benign prostatic hyperplasia without lower urinary tract symptoms; Z79.899 Other long term (current) drug therapy; L97.411 Non-pressure chronic ulcer of right heel and midfoot limited to breakdown of skin
CPT/HCPCS: 11042; 15275; 29581; 36415; 83036; 84134; 85025; 85652; 86140; 99213; Q4196; G0463

== ENCOUNTER 2020-12-30 11:30 | Outpatient (RCR) | payer MEDICARE, SELFPAY ==
[2020-12-01 00:09] VITALS: BP 142/69; PULSE 93; RESP 16; TEMP 36.7
[2020-12-01 15:00] VITALS: BP 126/85; PULSE 78; RESP 16; TEMP 36.3; BMI 26.9
--- NOTE | 2020-12-01 15:31 | PCM.WC.PN ---
History of Present Illness Date of Service: 12/01/20 Chief Complaint: Right foot wounds History of Wound: Samuel presents to the wound healing center today (11/04/20) for evaluation of a medial right foot ulcer and a lateral right foot ulcer. 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 The patient's ulcers onset around 09/20/20. He presented to Dr. Rosales's office and was referred to the [facility] emergency department for evaluation. He reports he had been wearing a pair of rubber boots which rubbed his right foot and caused blisters which then developed into ulcers. He was admitted to the hospital and worked up and treated for his foot ulcers. While at the hospital, he received IV Zosyn. He had a foot x-ray on 09/19/20 which showed severe degenerative changes, but no signs of osteomyelitis. He had a lower extremity CT on 09/22/20 which did not demonstrate osteomyelitis. He had arterial studies of the bilateral lower extremities on 09/23/20 which did not demonstrate any arterial occlusive disease. His MRSA PCR was negative; his MSSA PCR was positive. He was discharged home on Augmentin x7 days. Since discharge from [facility] he has been following with Dr. Rosales weekly, where he has received debridement of his ulcers. He initially was using triple antibiotic ointment and gauze dressings daily to the ulcers of his right foot. Santyl was ordered, but due to cost the patient delayed treating with Santyl until the past 2-3 weeks. Since initiating Santyl, the patient has had improvement in the appearance of his foot ulcers. He has been using an Brandon wrap for compression to his right lower extremity. He attempts to keep his right foot elevated when possible. He was previously using Agustin for nutritional supplementation, however this was discontinued due to cost. On 09/26/20, the patient reports that a wound culture was collected and a foot x-ray was obtained. Results of these will be requested. Per the patient's report, the culture indicated susceptibility to doxycycline, and he is completing a 2-week course of doxycycline tomorrow. The patient was referred to the wound healing center for a second opinion, and consideration of advanced skin substitutes. Progress of Wound: stable, left medial foot ulcer healed, left lateral foot ulcer slightly larger, no new concerns Objective Data Objective Data Vital Signs: Vital Signs Temp Pulse Resp BP 97.3 F L 78 16 126/85 H 12/01/20 15:00 12/01/20 15:00 12/01/20 15:00 12/01/20 15:00 Weight: 210 lb Body Mass Index (BMI) 26.9 Charges/Coding Procedures Integumentary 150xxx-152xx: 21529 Skin sub graft face/nk/hf/g Physical Exam Const alert, no apparent distress and healthy appearing General Appearance: cooperative, comfortable and well kempt Neck supple Resp normal respiratory effort Extremity normal capillary refill and no joint enlargement General Extremity: edema right lower extremity (Trace pitting edema of right foot) trace; Negative for clubbing Skin Rashes: rashes noted Right dorsal foot Narrative: Dermatitic type rash of the right dorsal foot, suspected late due to adhesive from Adaptic touch, or skin prep. Wounds: wounds noted No malodorous Wound Narrative: Right medial foot ulcer healed Right lateral foot ulcer with small to moderate amount of slough and devitalized tissue present, with moderate amount of good granulation tissue present as well. No purulent or malodorous drainage. No tunneling, undermining, or probing to bone. Mild periulcer erythema. No warmth. No tenderness to palpation. 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 ) Arrival Mode Ambulatory Patient Identification Verified (Name & Yes ) Patient Requires Transmission-Based No Precautions Safety Precautions NA Finger Stick Blood Sugar(mg/dl) (if 111 indicated): Blood Sugar Done During this Visit Height and Weight Body Mass Index (BMI) 26.9 BMI Classification Overweight Vital Signs Temperature (97.8 F-99.1 F) 97.3 F L Temperature Source Temporal Pulse Rate (60-100) 78 Pulse Location Monitor Respiratory Rate (12-18) 16 Respiratory rate source Observation Blood Pressure (90/60-120/80) 126/85 H Blood Pressure Mean (mm Hg) 98 Source Monitor Position Sitting Blood Pressure Location Left Arm History Since Last Visit- (Skip if this is Patient's initial visit) Have you changed medications since your No last visit? Any new allergies or adverse reactions No Had a fall/change in ADL's that may No increase risk of falls Signs or symptoms of abuse and/or No neglect since last visit Have you been in the hospital since your No last visit? Has dressing in place as prescribed Yes Has compression in place as prescribed N/A Has offloadiing in place as prescribed N/A Experienced any changes in pain level or No management Left Footwear Regular Shoe Right Footwear Surgical Shoe with pressure relief insole Pain Scale: 0-10 Numeric Is Patient Pain Free? Yes WC - Nurse 1 - General Ulcer Measurement Start: 12/01/20 15:00 Freq: Status: Active Protocol: Activity Type Activity Date Activity User E-Sign Co-Sign Detail Recorded Client Recorded Date Recorded By Document 12/01/20 15:00 ML [id number] 12/01/20 15:04 ML 12/01/20 15:00 Wound Center Nurse 1 #2 Lat right foot -Current Size (cm) - Length 3.2 -Current Size (cm) - Width 2 -Current Size (cm) - Depth 0.1 -Total Square Cm 6.4 -Exudate Amt Medium -Exudate Type Serosanguineous -Wound Margin Distinct, Outline Attached -Granulation Amt Medium (34-66%) -Granulation Quality Red -Necrosis Amt Medium (34-66%) -Necrotic Tissue Type Adherent Slough -Texture (Priscilla-wound Skin Appearance) No Abnormality -Moisture (Priscilla-wound Skin Appearance) No Abnormality -Color (Priscilla-wound Skin Appearance) No Abnormality -Temperature (Priscilla-wound Skin No Abnormality Appearance) (Pt Warm) -Ulcer Cleansing Wound Cleanser -Foul Odor after Cleansing No -Anesthetic Used 4% Lidocaine Solution #1 Med right foot -Current Size (cm) - Length 0.2 -Current Size (cm) - Width 0.2 -Current Size (cm) - Depth 0.1 -Total Square Cm 0.04 -Exudate Amt Small -Exudate Type Serosanguineous -Wound Margin Distinct, Outline Attached -Granulation Amt Medium (34-66%) -Slough/Fibrin Yes -Necrosis Amt Medium (34-66%) -Necrotic Tissue Type Adherent Slough -Texture (Priscilla-wound Skin Appearance) No Abnormality -Moisture (Priscilla-wound Skin Appearance) No Abnormality -Color (Priscilla-wound Skin Appearance) No Abnormality -Ulcer Cleansing Wound Cleanser -Foul Odor after Cleansing No -Anesthetic Used 4% Lidocaine Solution Right Calf (cm) 30 Right Ankle (cm) 17.8 WC - Nurse 2 - General Ulcer CM Notes Start: 12/01/20 15:00 Freq: Status: Active Protocol: Activity Type Activity Date Activity User E-Sign Co-Sign Detail Recorded Client Recorded Date Recorded By Document 12/01/20 16:39 PL [id number] 12/01/20 16:42 PL 12/01/20 16:39 Wound Center Nurse 2 #2 Lat right foot -Time 15:37 -Correct Patient Yes -Correct Side, Site, Position Yes -Correct Procedure Yes -Procedure Performed Yes -Type of Procedure Debridement -Clinical Debridement Subcutaneous -Tissue Removed Subcutaneous -Post Debridement (cm) - Length 2.2 -Post Debridement (cm) - Width 3.5 -Post Debridement (cm) - Depth 0.1 -Total Square (Post) (cm) 7.70 -Area of Debridement (cm) - Length 2.2 -Area of Debridement (cm) - Width 3.5 -Total Square (Area) (cm) 7.70 -Tunneling No -Undermining/Tunneling No -Circular Undermining No -Wound/Ulcer Outcome Not Healed -Ulcer Cleansing Rinsed/ Irrigated with Saline -Foul Odor after Cleansing No -Bioengineered Tissue Yes -Type of Bioengineered Tissue PuraPly AM -Expiration Date 09/19/22 -Product Lot Number [id number] -Percent Used 100 -Lot number of Saline Used [id number] -Bleeding Controlled with Pressure -Treatment Response Procedure Tolerated Well -Debridement - Subq, 1st 20sq cm No -Apply Skin Sub - 1st 25 sq cm - Feet 1 -PuraPly AM (per sq cm) 12 #1 Med right foot -Procedure Performed No -Wound/Ulcer Outcome Healed- Epithelialized Pain Scale: 0-10 Numeric Is Patient Pain Free? Yes WC - Nurse 3 - General Ulcer D/C NN Start: 12/01/20 15:00 Freq: Status: Active Protocol: Activity Type Activity Date Activity User E-Sign Co-Sign Detail Recorded Client Recorded Date Recorded By Document 12/01/20 15:57 DL [id number] 12/01/20 16:06 DL 12/01/20 15:57 Wound Care Nurse 3 #2 Lat right foot -Other Dressing puraply -Primary Dressing Covered/Secured with Dry Gauze & Roll Gauze, Secured with Tape #1 Med right foot -Ulcer Cleansing Rinsed/ Irrigated with Saline -Foul Odor after Cleansing No -Other Dressing hydrogel -Primary Dressing Covered/Secured with Dry Gauze Right -Multi-Layered Wrap Application Multi-Layer Comp - Right ($ ) Treatment Response Procedure Tolerated Well Pain Scale: 0-10 Numeric Is Patient Pain Free? Yes WC - Visit Discharge Discharge Condition Stable Ambulatory Status Ambulatory Transportation Private Auto Additional Wound Wound debrided: right lateral foot ulcer Laterality: Right Type of Debridement: Excisional debridement Anesthesia Used: 5% Lidocaine Gel Depth: Down to and including healthy tissue Percentage of wound debrided: 100 Instrument Used: 5mm curette Tissue Removed: slough and devitalized tissue Severity: Fat Layer Exposed Bleeding Controlled with: Compression and gauze Patient tolerated procedure: Patient tolerated procedure well Assessment/Plan Assessment/Plan (1) Diabetic foot ulcer associated with type 2 diabetes mellitus, with fat layer exposed: CODE(S): E11.621 - Type 2 diabetes mellitus with foot ulcer; L97.502 - Non-pressure chronic ulcer of other part of unspecified foot with fat layer exposed QUALIFIERS: Diabetic foot ulcer location: midfoot Laterality: right Qualified Code(s): E11.621 - Type 2 diabetes mellitus with foot ulcer; L97.412 - 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 exposed (2) Type 2 diabetes mellitus: CODE(S): E11.9 - Type 2 diabetes mellitus without complications QUALIFIERS: Diabetes mellitus prison insulin use: without truck terminal manager use Diabetes mellitus complication status: with skin complications Diabetes mellitus complication detail: with other skin ulcer Qualified Code(s): E11.622 - Type 2 diabetes mellitus with other skin ulcer (3) Diabetic neuropathy: CODE(S): E11.40 - Type 2 diabetes mellitus with diabetic neuropathy, unspecified QUALIFIERS: Diabetes mellitus type: type 2 Diabetes mellitus complication detail: diabetic polyneuropathy Qualified Code(s): E11.42 - Type 2 diabetes mellitus with diabetic polyneuropathy (4) Paroxysmal atrial fibrillation: CODE(S): I48.0 - Paroxysmal atrial fibrillation (5) Essential hypertension: CODE(S): I10 - Essential (primary) hypertension (6) Hyperlipidemia: CODE(S): E78.5 - Hyperlipidemia, unspecified QUALIFIERS: Hyperlipidemia type: unspecified Qualified Code(s): E78.5 - Hyperlipidemia, unspecified PLAN: Given the duration of the wound and failure of the wound to respond to standard wound care, we applied for advanced skin substitutes (Puraply, Nushield, Apligraf). The patient was approved for Puraply and Apligraf. Debridement performed today in clinic as annotated above. Puraply #4 applied today to the right foot ulcers. 100% of the product was used. A wound veil and Steri-Strips were used to cover PuraPly AM due to possible previous reaction to Adaptic touch. A thin layer of hydrogel was applied to areas of dermatitis on the patient's right foot. 3M wrap applied for compression. At home wound-care instructions: Keep right lower extremity wraps and dressings clean and dry. These will be removed at your next appointment. If 3M's begin to loosen or fall, please contact the wound healing center and a nurse visit may be scheduled for these to be reapplied. Compression: Leave 3M in place until next visit. If wounds are draining through the wrap, please contact the wound healing center to schedule an appointment for a nurse visit for these to be changed. If anytime you experience numbness or discoloration of the toes but does not resolve with elevation of feet, contact the wound healing center or remove your wraps. Off-loading: Continue offloading shoe given by podiatry. The patient was instructed to avoid pressure and friction on the affected areas. Reposition every 2 hours at minimum. Avoid prolonged standing and/or dangling of legs. When seated, feet should be elevated at chest level. Frequent ambulation is encouraged. Diet: Patient encouraged to increase protein intake while taking caution to avoid high carbohydrate and/or sugar intake. Labs/cultures/imaging: Cultures deferred today. Patient has completed a course of doxycycline. Cultures and foot x-ray were collected with Dr. Rosales on 10/26/2020. Results will be requested for review. Foot x-ray, foot CT, and arterial studies were completed in September 2020 and reviewed as annotated above in HPI. Patient's lab work collected on 11/04/2020 revealed the following: CBCD: Unremarkable ESR: Normal Hemoglobin A1c 5.4% CRP: Normal prealbumin: Normal Follow-up: Return to clinic in 1 week for re-evaluation with Gerber Ferguson NP?C. Return sooner or report to the emergency room should symptoms worsen, or new symptoms arise. Note: [employer] speech recognition teacher physically impaired software was used to create portions of this document. Sound-alike and misspelled words, as well as other teacher physically impaired errors may be contained in the documentation.
[2020-12-08 09:18] VITALS: BP 123/79; PULSE 81; RESP 16; TEMP 36.1; BMI 26.9
--- NOTE | 2020-12-08 10:00 | PN.PCM_ITS ---
History of Present Illness Date of Service: 12/08/20 Chief Complaint: Right foot wounds History of Wound: Samuel presents to the wound healing center today (11/04/20) for evaluation of a medial right foot ulcer and a lateral right foot ulcer. 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 The patient's ulcers onset around 09/20/20. He presented to Dr. Rosales's office and was referred to the [facility] emergency department for evaluation. He reports he had been wearing a pair of rubber boots which rubbed his right foot and caused blisters which then developed into ulcers. He was admitted to the hospital and worked up and treated for his foot ulcers. While at the hospital, he received IV Zosyn. He had a foot x-ray on 09/19/20 which showed severe degenerative changes, but no signs of osteomyelitis. He had a lower extremity CT on 09/22/20 which did not demonstrate osteomyelitis. He had arterial studies of the bilateral lower extremities on 09/23/20 which did not demonstrate any arterial occlusive disease. His MRSA PCR was negative; his MSSA PCR was positive. He was discharged home on Augmentin x7 days. Since discharge from [facility] he has been following with Dr. Rosales weekly, where he has received debridement of his ulcers. He initially was using triple antibiotic ointment and gauze dressings daily to the ulcers of his right foot. Santyl was ordered, but due to cost the patient delayed treating with Santyl until the past 2-3 weeks. Since initiating Santyl, the patient has had improvement in the appearance of his foot ulcers. He has been using an Brandon wrap for compression to his right lower extremity. He attempts to keep his right foot elevated when possible. He was previously using Agustin for nutritional supplementation, however this was discontinued due to cost. On 09/26/20, the patient reports that a wound culture was collected and a foot x-ray was obtained. Results of these will be requested. Per the patient's report, the culture indicated susceptibility to doxycycline, and he is completing a 2-week course of doxycycline tomorrow. The patient was referred to the wound healing center for a second opinion, and consideration of advanced skin substitutes. Progress of Wound: stable, left medial foot ulcer healed, left lateral foot ulcer improved in size, no new concerns, will reculture today Objective Data Objective Data Vital Signs: Vital Signs Temp Pulse Resp BP 97 F L 81 16 123/79 H 12/08/20 09:18 12/08/20 09:18 12/08/20 09:18 12/08/20 09:18 Weight: 210 lb Body Mass Index (BMI) 26.9 Charges/Coding Procedures Integumentary 150xxx-152xx: [id number] Skin sub graft face/nk/hf/g Physical Exam Const alert, no apparent distress and healthy appearing General Appearance: cooperative, comfortable and well kempt Neck supple Resp normal respiratory effort Extremity normal capillary refill and no joint enlargement General Extremity: edema right lower extremity (Trace pitting edema of right foot) trace; Negative for clubbing Skin Wounds: wounds noted No malodorous Wound Narrative: Right medial foot ulcer healed Right lateral foot ulcer with small to moderate amount of slough and devitalized tissue present, with moderate amount of good granulation tissue present as well. No purulent or malodorous drainage. No tunneling, undermining, or probing to bone. Mild periulcer erythema. No warmth. No tenderness to palpation. Neuro moves all extremities Psych mental status grossly normal, cooperative and affect normal Debridement Note Debridement Note Post-Debridement Measurements and Additional Note: Post-Debridement Measurements/Treatment - Nurse 1 - General Ulcer Assessment Start: 12/01/20 15:00 Freq: Status: Active Protocol: SAHIL Activity Type Activity Date Activity User E-Sign Co-Sign Detail Recorded Client Recorded Date Recorded By Document 12/01/20 15:00 ML [id number] 12/01/20 15:04 ML Document 12/08/20 09:18 ML [id number] 12/08/20 09:23 ML 12/01/20 12/08/20 15:00 09:18 - Today's Visit Information Type of service Follow-up Visit Follow-up Visit (Physician/CIRCUIT DESIGNER (Physician/CIRCUIT DESIGNER ) ) Arrival Mode Ambulatory Ambulatory Transfer Assistance None Patient Identification Verified (Name & Yes Yes ) Patient Requires Transmission-Based No No Precautions Safety Precautions NA NA Finger Stick Blood Sugar(mg/dl) (if 111 109 indicated): Blood Sugar Done During Stated by this Visit Patient Height and Weight Body Mass Index (BMI) 26.9 26.9 BMI Classification Overweight Overweight Vital Signs Temperature (97.8 F-99.1 F) 97.3 F L 97 F L Temperature Source Temporal Temporal Pulse Rate (60-100) 78 81 Pulse Location Monitor Monitor Respiratory Rate (12-18) 16 16 Respiratory rate source Observation Observation Blood Pressure (90/60-120/80) 126/85 H 123/79 H Blood Pressure Mean (mm Hg) 98 93 Source Monitor Monitor Position Sitting Sitting Blood Pressure Location Left Arm Right Arm History Since Last Visit- (Skip if this is Patient's initial visit) Have you changed medications since your No No last visit? Any new allergies or adverse reactions No No Had a fall/change in ADL's that may No No increase risk of falls Signs or symptoms of abuse and/or No No neglect since last visit Have you been in the hospital since your No No last visit? Has dressing in place as prescribed Yes Yes Has compression in place as prescribed N/A Yes Has offloadiing in place as prescribed N/A N/A Experienced any changes in pain level or No No management Left Footwear Regular Shoe Diabetic Shoe Right Footwear Surgical Shoe Diabetic Shoe with pressure relief insole Pain Scale: 0-10 Numeric Is Patient Pain Free? Yes Yes WC - Nurse 1 - General Ulcer Measurement Start: 12/01/20 15:00 Freq: Status: Active Protocol: Activity Type Activity Date Activity User E-Sign Co-Sign Detail Recorded Client Recorded Date Recorded By Document 12/01/20 15:00 ML [id number] 12/01/20 15:04 ML Document 12/08/20 09:18 ML [id number] 12/08/20 09:23 ML 12/01/20 12/08/20 15:00 09:18 Wound Center Nurse 1 #2 Lat right foot -Current Size (cm) - Length 3.2 2 -Current Size (cm) - Width 2 1.6 -Current Size (cm) - Depth 0.1 0.1 -Total Square Cm 6.4 3.2 -Exudate Amt Medium Medium -Exudate Type Serosanguineous Serosanguineous -Wound Margin Distinct, Distinct, Outline Outline Attached Attached -Granulation Amt Medium (34-66%) Medium (34-66%) -Granulation Quality Red -Slough/Fibrin Yes -Necrosis Amt Medium (34-66%) Medium (34-66%) -Necrotic Tissue Type Adherent Slough Adherent Slough -Texture (Priscilla-wound Skin Appearance) No Abnormality Assessed -Moisture (Priscilla-wound Skin Appearance) No Abnormality Assessed -Color (Priscilla-wound Skin Appearance) No Abnormality Assessed -Temperature (Priscilla-wound Skin No Abnormality No Abnormality Appearance) (Pt Warm) (Pt Warm) -Tenderness on Palpation (Priscilla-wound No Skin Appearance) -Ulcer Cleansing Wound Cleanser Wound Cleanser -Foul Odor after Cleansing No No -Anesthetic Used 4% Lidocaine 4% Lidocaine Solution Solution #1 Med right foot -Current Size (cm) - Length 0.2 -Current Size (cm) - Width 0.2 -Current Size (cm) - Depth 0.1 -Total Square Cm 0.04 -Exudate Amt Small -Exudate Type Serosanguineous -Wound Margin Distinct, Outline Attached -Granulation Amt Medium (34-66%) -Slough/Fibrin Yes -Necrosis Amt Medium (34-66%) -Necrotic Tissue Type Adherent Slough -Texture (Priscilla-wound Skin Appearance) No Abnormality -Moisture (Priscilla-wound Skin Appearance) No Abnormality -Color (Priscilla-wound Skin Appearance) No Abnormality -Ulcer Cleansing Wound Cleanser -Foul Odor after Cleansing No -Anesthetic Used 4% Lidocaine Solution Right Calf (cm) 30 26 Right Ankle (cm) 17.8 18.5 WC - Nurse 2 - General Ulcer CM Notes Start: 12/01/20 15:00 Freq: Status: Active Protocol: Activity Type Activity Date Activity User E-Sign Co-Sign Detail Recorded Client Recorded Date Recorded By Document 12/01/20 16:39 JANA [id number] 12/01/20 16:42 PL 12/01/20 16:39 Wound Center Nurse 2 #2 Lat right foot -Time 15:37 -Correct Patient Yes -Correct Side, Site, Position Yes -Correct Procedure Yes -Procedure Performed Yes -Type of Procedure Debridement -Clinical Debridement Subcutaneous -Tissue Removed Subcutaneous -Post Debridement (cm) - Length 2.2 -Post Debridement (cm) - Width 3.5 -Post Debridement (cm) - Depth 0.1 -Total Square (Post) (cm) 7.70 -Area of Debridement (cm) - Length 2.2 -Area of Debridement (cm) - Width 3.5 -Total Square (Area) (cm) 7.70 -Tunneling No -Undermining/Tunneling No -Circular Undermining No -Wound/Ulcer Outcome Not Healed -Ulcer Cleansing Rinsed/ Irrigated with Saline -Foul Odor after Cleansing No -Bioengineered Tissue Yes -Type of Bioengineered Tissue PuraPly AM -Expiration Date 09/19/22 -Product Lot Number [id number] -Percent Used 100 -Lot number of Saline Used [id number] -Bleeding Controlled with Pressure -Treatment Response Procedure Tolerated Well -Debridement - Subq, 1st 20sq cm No -Apply Skin Sub - 1st 25 sq cm - Feet 1 -PuraPly AM (per sq cm) 12 #1 Med right foot -Procedure Performed No -Wound/Ulcer Outcome Healed- Epithelialized Pain Scale: 0-10 Numeric Is Patient Pain Free? Yes - Nurse 3 - General Ulcer D/C NN Start: 12/01/20 15:00 Freq: Status: Active Protocol: Activity Type Activity Date Activity User E-Sign Co-Sign Detail Recorded Client Recorded Date Recorded By Document 12/01/20 15:57 DL [id number] 12/01/20 16:06 DL 12/01/20 15:57 Wound Care Nurse 3 #2 Lat right foot -Other Dressing puraply -Primary Dressing Covered/Secured with Dry Gauze & Roll Gauze, Secured with Tape #1 Med right foot -Ulcer Cleansing Rinsed/ Irrigated with Saline -Foul Odor after Cleansing No -Other Dressing hydrogel -Primary Dressing Covered/Secured with Dry Gauze Right -Multi-Layered Wrap Application Multi-Layer Comp - Right ($ ) Treatment Response Procedure Tolerated Well Pain Scale: 0-10 Numeric Is Patient Pain Free? Yes WC - Visit Discharge Discharge Condition Stable Ambulatory Status Ambulatory Transportation Private Auto Additional Wound Wound debrided: right lateral foot ulcer DFU Laterality: Right Wound Grade/Stage: teresa 2 Type of Debridement: Excisional debridement Anesthesia Used: 5% Lidocaine Gel Depth: Down to and including healthy tissue and in the subcutaneous layer Percentage of wound debrided: 100 Instrument Used: 5mm curette Tissue Removed: slough and devitalized tissue Severity: Fat Layer Exposed Amount of bleeding with debridement: Mild Bleeding Controlled with: Pressure Patient tolerated procedure: Patient tolerated procedure well Assessment/Plan Assessment/Plan (1) Diabetic foot ulcer associated with type 2 diabetes mellitus, with fat layer exposed: CODE(S): E11.621 - Type 2 diabetes mellitus with foot ulcer; L97.502 - Non-pressure chronic ulcer of other part of unspecified foot with fat layer exposed QUALIFIERS: Diabetic foot ulcer location: midfoot Laterality: right Qualified Code(s): E11.621 - Type 2 diabetes mellitus with foot ulcer; L97.412 - 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 exposed (2) Type 2 diabetes mellitus: CODE(S): E11.9 - Type 2 diabetes mellitus without complications QUALIFIERS: 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: without longshore equipment operator use Diabetes mellitus complication status: with skin complications Diabetes mellitus complication detail: with other skin ulcer Qualified Code(s): E11.622 - Type 2 diabetes mellitus with other skin ulcer (3) Diabetic neuropathy: CODE(S): E11.40 - Type 2 diabetes mellitus with diabetic neuropathy, unspecified QUALIFIERS: Diabetes mellitus type: type 2 Diabetes mellitus complication detail: diabetic polyneuropathy Qualified Code(s): E11.42 - Type 2 diabetes mellitus with diabetic polyneuropathy (4) Paroxysmal atrial fibrillation: CODE(S): I48.0 - Paroxysmal atrial fibrillation (5) Essential hypertension: CODE(S): I10 - Essential (primary) hypertension (6) Hyperlipidemia: CODE(S): E78.5 - Hyperlipidemia, unspecified QUALIFIERS: Hyperlipidemia type: unspecified Qualified Code(s): E78.5 - Hyperlipidemia, unspecified PLAN: Given the duration of the wound and failure of the wound to respond to standard wound care, we applied for advanced skin substitutes (Puraply, Nushield, Apligraf). The patient was approved for Puraply and Apligraf. Debridement performed today in clinic as annotated above. Puraply #5 applied today to the right foot ulcers. 100% of the product was used. Will consider apligraf next week. A thin layer of hydrogel was applied to areas of dermatitis on the patient's right foot. 3M wrap applied for compression. At home wound-care instructions: Keep right lower extremity wraps and dressings clean and dry. These will be removed at your next appointment. If 3M's begin to loosen or fall, please contact the wound healing center and a nurse visit may be scheduled for these to be reapplied. Compression: Leave 3M in place until next visit. If wounds are draining through the wrap, please contact the wound healing center to schedule an appointment for a nurse visit for these to be changed. If anytime you experience numbness or discoloration of the toes but does not resolve with elevation of feet, contact the wound healing center or remove your wraps. Off-loading: Continue offloading shoe given by podiatry. The patient was instructed to avoid pressure and friction on the affected areas. Reposition every 2 hours at minimum. Avoid prolonged standing and/or dangling of legs. When seated, feet should be elevated at chest level. Frequent ambulation is encouraged. Diet: Patient encouraged to increase protein intake while taking caution to avoid high carbohydrate and/or sugar intake. Labs/cultures/imaging: Cultures recollected today. Patient has completed a course of doxycycline. Cultures and foot x-ray were collected with Dr. Rosales on 10/26/2020. Results will be requested for review. Foot x-ray, foot CT, and arterial studies were completed in September 2020 and reviewed as annotated above in HPI. Patient's lab work collected on 11/04/2020 revealed the following: CBCD: Unremarkable ESR: Normal Hemoglobin A1c 5.4% CRP: Normal prealbumin: Normal Follow-up: Return to clinic in 1 week for re-evaluation with Gerber Ferguson NP?C. Return sooner or report to the emergency room should symptoms worsen, or new symptoms arise. Note: [employer] speech recognition hat lining blocker software was used to create portions of this document. Sound-alike and misspelled words, as well as other hat lining blocker errors may be contained in the documentation.
[2020-12-16 08:38] VITALS: BP 133/80; PULSE 69; RESP 16; TEMP 36.6; BMI 26.9
--- NOTE | 2020-12-16 11:34 | PN.PCM_ITS ---
History of Present Illness Date of Service: 12/16/20 Chief Complaint: Right foot wounds History of Wound: Samuel presents to the wound healing center today (11/04/20) for evaluation of a medial right foot ulcer and a lateral right foot ulcer. 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 The patient's ulcers onset around 09/20/20. He presented to Dr. Rosales's office and was referred to the [facility] emergency department for evaluation. He reports he had been wearing a pair of rubber boots which rubbed his right foot and caused blisters which then developed into ulcers. He was admitted to the hospital and worked up and treated for his foot ulcers. While at the hospital, he received IV Zosyn. He had a foot x-ray on 09/19/20 which showed severe degenerative changes, but no signs of osteomyelitis. He had a lower extremity CT on 09/22/20 which did not demonstrate osteomyelitis. He had arterial studies of the bilateral lower extremities on 09/23/20 which did not demonstrate any arterial occlusive disease. His MRSA PCR was negative; his MSSA PCR was positive. He was discharged home on Augmentin x7 days. Since discharge from [facility] he has been following with Dr. Rosales weekly, where he has received debridement of his ulcers. He initially was using triple antibiotic ointment and gauze dressings daily to the ulcers of his right foot. Santyl was ordered, but due to cost the patient delayed treating with Santyl until the past 2-3 weeks. Since initiating Santyl, the patient has had improvement in the appearance of his foot ulcers. He has been using an Brandon wrap for compression to his right lower extremity. He attempts to keep his right foot elevated when possible. He was previously using Agustin for nutritional supplementation, however this was discontinued due to cost. On 09/26/20, the patient reports that a wound culture was collected and a foot x-ray was obtained. Results of these will be requested. Per the patient's report, the culture indicated susceptibility to doxycycline, and he is completing a 2-week course of doxycycline tomorrow. The patient was referred to the wound healing center for a second opinion, and consideration of advanced skin substitutes. Progress of Wound: Right medial foot ulcer remains healed, though there is some irritation and slight maceration present. This lies over a bony prominence of the foot and I suspect there is friction/pressure against the 3M wraps. Right lateral foot ulcer is improved in size and appearance today. The patient has been compliant with the use of Puraply and 3M wraps. The patient's right great toe ulcer is stable today. He reports this occurred after hitting his foot on a chair. The patient's wound culture from 12/08/2020 was positive for 1+ Staphylococcus aureus, rare Staphylococcus epidermidis and rare eggerthia catenaformis. He was started on Bactrim DS twice daily x7 days. He has 2-1/2 days left of this prescription. He is tolerating this well. Objective Data Objective Data Vital Signs: Vital Signs Temp Pulse Resp BP 97.9 F 69 16 133/80 H 12/16/20 08:38 12/16/20 08:38 12/16/20 08:38 12/16/20 08:38 Weight: 210 lb Body Mass Index (BMI) 26.9 Lab / Micro Data Micro: Microbiology 12/08/20 09:23 Wound - Right Foot Gram Stain - Final 12/08/20 09:23 Wound - Right Foot Wound Culture - Final Staphylococcus aureus Staphylococcus epidermidis Eggerthia catenaformis 12/08/20 09:23 Wound - Right Foot Anaerobic Culture - Final No anaerobic bacteria isolated. Charges/Coding Procedures Integumentary 111xxx-113xx: [id number] Mary Grace subq tissue 20 sq cm/< 150xxx-152xx: [id number] Skin sub graft face/nk/hf/g Physical Exam Const alert, no apparent distress and healthy appearing General Appearance: cooperative, comfortable and well kempt Neck supple Resp normal respiratory effort Extremity normal capillary refill and no joint enlargement General Extremity: edema right lower extremity (Trace pitting edema of right foot) trace and other findings Other Details: Abnormal structure of right foot due to postsurgical changes ; Negative for clubbing Skin Wounds: wounds noted No malodorous Wound Narrative: Right medial foot ulcer remains healed. Irritation and mild maceration present. Right lateral foot ulcer with small amount of slough and devitalized tissue present, with good granulation tissue present as well. No purulent or malodorous drainage. No tunneling, undermining, or probing to bone. Mild periulcer erythema. No warmth. No tenderness to palpation. Right great toe medial ulcer with small amount of slough and devitalized tissue present. Good granulation tissue is present as well. No purulent/malodorous drainage. No tunneling, undermining, or probing to bone. Mild periulcer erythema. No warmth or tenderness to palpation. Neuro moves all extremities Psych mental status grossly normal, cooperative and affect normal Debridement Note Debridement Note Post-Debridement Measurements and Additional Note: Post-Debridement Measurements/Treatment - Nurse 1 - General Ulcer Assessment Start: 12/01/20 15:00 Freq: Status: Active Protocol: SAHIL Activity Type Activity Date Activity User E-Sign Co-Sign Detail Recorded Client Recorded Date Recorded By Document 12/01/20 15:00 ML [id number] 12/01/20 15:04 ML Document 12/08/20 09:18 ML [id number] 12/08/20 09:23 ML Document 12/16/20 08:38 ML Desktop 12/16/20 08:51 ML 12/01/20 12/08/20 12/16/20 15:00 09:18 08:38 - Today's Visit Information Type of service Follow-up Visit Follow-up Visit Follow-up Visit (Physician/EDITOR GREETING CARD (Physician/EDITOR GREETING CARD (Physician/EDITOR GREETING CARD ) ) ) Arrival Mode Ambulatory Ambulatory Ambulatory Transfer Assistance None None Patient Identification Verified (Name & Yes Yes Yes ) Patient Requires Transmission-Based No No No Precautions Safety Precautions NA NA NA Finger Stick Blood Sugar(mg/dl) (if 111 109 101 indicated): Blood Sugar Done During Stated by Done During this Visit Patient this Visit Height and Weight Body Mass Index (BMI) 26.9 26.9 26.9 BMI Classification Overweight Overweight Overweight Vital Signs Temperature (97.8 F-99.1 F) 97.3 F L 97 F L 97.9 F Temperature Source Temporal Temporal Temporal Pulse Rate (60-100) 78 81 69 Pulse Location Monitor Monitor Monitor Respiratory Rate (12-18) 16 16 16 Respiratory rate source Observation Observation Observation Blood Pressure (90/60-120/80) 126/85 H 123/79 H 133/80 H Blood Pressure Mean (mm Hg) 98 93 97 Source Monitor Monitor Monitor Position Sitting Sitting Sitting Blood Pressure Location Left Arm Right Arm Right Arm History Since Last Visit- (Skip if this is Patient's initial visit) Have you changed medications since your No No No last visit? Any new allergies or adverse reactions No No No Had a fall/change in ADL's that may No No No increase risk of falls Signs or symptoms of abuse and/or No No No neglect since last visit Have you been in the hospital since your No No No last visit? Has dressing in place as prescribed Yes Yes Yes Has compression in place as prescribed N/A Yes Yes Has offloadiing in place as prescribed N/A N/A N/A Experienced any changes in pain level or No No No management Left Footwear Regular Shoe Diabetic Shoe Surgical Shoe with pressure relief insole Right Footwear Surgical Shoe Diabetic Shoe Regular Shoe with pressure relief insole Pain Scale: 0-10 Numeric Is Patient Pain Free? Yes Yes Yes WC - Nurse 1 - General Ulcer Measurement Start: 12/01/20 15:00 Freq: Status: Active Protocol: Activity Type Activity Date Activity User E-Sign Co-Sign Detail Recorded Client Recorded Date Recorded By Document 12/01/20 15:00 ML [id number] 12/01/20 15:04 ML Document 12/08/20 09:18 ML [id number] 12/08/20 09:23 ML Document 12/16/20 08:38 ML Desktop 12/16/20 08:51 ML 12/01/20 12/08/20 12/16/20 15:00 09:18 08:38 Wound Center Nurse 1 #4 right medial foot -Current Size (cm) - Length 0.5 -Current Size (cm) - Width 0.5 -Current Size (cm) - Depth 0.1 -Total Square Cm 0.25 -Exudate Amt Small -Exudate Type Serosanguineous -Wound Margin Distinct, Outline Attached -Granulation Amt Medium (34-66%) -Slough/Fibrin Yes -Necrosis Amt Medium (34-66%) -Necrotic Tissue Type Adherent Slough -Texture (Priscilla-wound Skin Appearance) Assessed -Moisture (Priscilla-wound Skin Appearance) Assessed -Color (Priscilla-wound Skin Appearance) Assessed -Temperature (Priscilla-wound Skin No Abnormality Appearance) (Pt Warm) -Ulcer Cleansing Wound Cleanser -Foul Odor after Cleansing No -Anesthetic Used 4% Lidocaine Solution #3 right hallux -Current Size (cm) - Length 0.4 -Current Size (cm) - Width 0.6 -Current Size (cm) - Depth 0.1 -Total Square Cm 0.24 -Exudate Amt Small -Exudate Type Serosanguineous -Wound Margin Distinct, Outline Attached -Granulation Amt Medium (34-66%) -Slough/Fibrin Yes -Necrosis Amt Medium (34-66%) -Necrotic Tissue Type Adherent Slough -Texture (Priscilla-wound Skin Appearance) Assessed -Moisture (Priscilla-wound Skin Appearance) Assessed -Color (Priscilla-wound Skin Appearance) Assessed -Temperature (Priscilla-wound Skin No Abnormality Appearance) (Pt Warm) -Tenderness on Palpation (Priscilla-wound No Skin Appearance) -Ulcer Cleansing Wound Cleanser -Foul Odor after Cleansing No -Anesthetic Used 4% Lidocaine Solution #2 Lat right foot -Current Size (cm) - Length 3.2 2 2.5 -Current Size (cm) - Width 2 1.6 1.5 -Current Size (cm) - Depth 0.1 0.1 0.2 -Total Square Cm 6.4 3.2 3.75 -Exudate Amt Medium Medium Medium -Exudate Type Serosanguineous Serosanguineous Serosanguineous -Wound Margin Distinct, Distinct, Distinct, Outline Outline Outline Attached Attached Attached -Granulation Amt Medium (34-66%) Medium (34-66%) Medium (34-66%) -Granulation Quality Red -Slough/Fibrin Yes Yes -Necrosis Amt Medium (34-66%) Medium (34-66%) Medium (34-66%) -Necrotic Tissue Type Adherent Slough Adherent Slough Adherent Slough -Texture (Priscilla-wound Skin Appearance) No Abnormality Assessed Assessed -Moisture (Priscilla-wound Skin Appearance) No Abnormality Assessed Assessed -Color (Priscilla-wound Skin Appearance) No Abnormality Assessed Assessed -Temperature (Priscilla-wound Skin No Abnormality No Abnormality No Abnormality Appearance) (Pt Warm) (Pt Warm) (Pt Warm) -Tenderness on Palpation (Priscilla-wound No Skin Appearance) -Ulcer Cleansing Wound Cleanser Wound Cleanser Wound Cleanser -Foul Odor after Cleansing No No No -Anesthetic Used 4% Lidocaine 4% Lidocaine 4% Lidocaine Solution Solution Solution #1 Med right foot -Current Size (cm) - Length 0.2 -Current Size (cm) - Width 0.2 -Current Size (cm) - Depth 0.1 -Total Square Cm 0.04 -Exudate Amt Small -Exudate Type Serosanguineous -Wound Margin Distinct, Outline Attached -Granulation Amt Medium (34-66%) -Slough/Fibrin Yes -Necrosis Amt Medium (34-66%) -Necrotic Tissue Type Adherent Slough -Texture (Priscilla-wound Skin Appearance) No Abnormality -Moisture (Priscilla-wound Skin Appearance) No Abnormality -Color (Priscilla-wound Skin Appearance) No Abnormality -Ulcer Cleansing Wound Cleanser -Foul Odor after Cleansing No -Anesthetic Used 4% Lidocaine Solution Lower Limb Edema Present No Right Calf (cm) 30 26 27.5 Right Ankle (cm) 17.8 18.5 19 WC - Nurse 2 - General Ulcer CM Notes Start: 12/01/20 15:00 Freq: Status: Active Protocol: Activity Type Activity Date Activity User E-Sign Co-Sign Detail Recorded Client Recorded Date Recorded By Document 12/01/20 16:39 PL [id number] 12/01/20 16:42 PL Document 12/08/20 12:34 PL [id number] 12/08/20 12:37 PL 12/01/20 12/08/20 16:39 12:34 Wound Center Nurse 2 #2 Lat right foot -Time 15:37 09:40 -Correct Patient Yes Yes -Correct Side, Site, Position Yes Yes -Correct Procedure Yes Yes -Procedure Performed Yes Yes -Type of Procedure Debridement Debridement -Clinical Debridement Subcutaneous Subcutaneous -Tissue Removed Subcutaneous Subcutaneous -Post Debridement (cm) - Length 2.2 1.8 -Post Debridement (cm) - Width 3.5 2.6 -Post Debridement (cm) - Depth 0.1 0.1 -Total Square (Post) (cm) 7.70 4.68 -Area of Debridement (cm) - Length 2.2 1.8 -Area of Debridement (cm) - Width 3.5 2.6 -Total Square (Area) (cm) 7.70 4.68 -Tunneling No No -Undermining/Tunneling No No -Circular Undermining No No -Wound/Ulcer Outcome Not Healed Not Healed -Ulcer Cleansing Rinsed/ Rinsed/ Irrigated with Irrigated with Saline Saline -Foul Odor after Cleansing No No -Bioengineered Tissue Yes Yes -Type of Bioengineered Tissue PuraPly AM PuraPly AM -Expiration Date 09/19/22 03/29/22 -Product Lot Number [id number] -Percent Used 100 100 -Lot number of Saline Used [id number] -Bleeding Controlled with Pressure Pressure -Treatment Response Procedure Procedure Tolerated Well Tolerated Well -Debridement - Subq, 1st 20sq cm No No -Apply Skin Sub - 1st 25 sq cm - Feet 1 1 -PuraPly AM (per sq cm) 12 8 #1 Med right foot -Procedure Performed No -Wound/Ulcer Outcome Healed- Epithelialized Pain Scale: 0-10 Numeric Is Patient Pain Free? Yes Yes - Nurse 3 - General Ulcer D/C NN Start: 12/01/20 15:00 Freq: Status: Active Protocol: Activity Type Activity Date Activity User E-Sign Co-Sign Detail Recorded Client Recorded Date Recorded By Document 12/01/20 15:57 DL [id number] 12/01/20 16:06 DL Document 12/08/20 10:03 ML [id number] 12/08/20 10:05 ML 12/01/20 12/08/20 15:57 10:03 Wound Care Nurse 3 #2 Lat right foot -Ulcer Cleansing Rinsed/ Irrigated with Saline -Other Dressing puraply adaptic,puraply -Primary Dressing Covered/Secured with Dry Gauze & Roll Gauze, Secured with Tape #1 Med right foot -Ulcer Cleansing Rinsed/ Irrigated with Saline -Foul Odor after Cleansing No -Other Dressing hydrogel -Primary Dressing Covered/Secured with Dry Gauze Right -Multi-Layered Wrap Application Multi-Layer Multi-Layer Comp - Right ($ Comp - Right ($ ) ) Treatment Response Procedure Tolerated Well Pain Scale: 0-10 Numeric Is Patient Pain Free? Yes WC - Visit Discharge Discharge Condition Stable Stable Ambulatory Status Ambulatory Ambulatory Transportation Private Auto Medication Reconcilliation completed & No provided to patient/care provider Clinical Summary of Care Provided Yes Wound debrided: Right lateral foot ulcer Laterality: Right Wound Grade/Stage: Choudhary 2 Type of Debridement: Excisional debridement Anesthesia Used: 5% Lidocaine Gel Depth: Down to and including healthy tissue and in the subcutaneous layer Percentage of wound debrided: 100 Instrument Used: 5mm curette Tissue Removed: Slough and devitalized tissue Severity: Fat Layer Exposed Amount of bleeding with debridement: Moderate Bleeding Controlled with: Pressure Patient tolerated procedure: Patient tolerated procedure well Additional Wound Wound debrided: Right great toe ulcer (medial) Laterality: Right Wound Grade/Stage: Choudhary 2 Type of Debridement: Excisional debridement Anesthesia Used: 5% Lidocaine Gel Depth: Down to and including healthy tissue and in the subcutaneous layer Percentage of wound debrided: 100 Instrument Used: 3mm curette Tissue Removed: Slough and devitalized tissue Severity: Fat Layer Exposed Amount of bleeding with debridement: Mild Bleeding Controlled with: Pressure Patient tolerated procedure: Patient tolerated procedure well Assessment/Plan Assessment/Plan (1) Diabetic ulcer of toe of right foot with fat layer exposed: CODE(S): E11.621 - Type 2 diabetes mellitus with foot ulcer; L97.512 - Non-pressure chronic ulcer of other part of right foot with fat layer exposed QUALIFIERS: Diabetes mellitus type: type 2 Qualified Code(s): E11.621 - Type 2 diabetes mellitus with foot ulcer; L97.512 - Non-pressure chronic ulcer of other part of right foot with fat layer exposed (2) Diabetic foot ulcer associated with type 2 diabetes mellitus, with fat layer exposed: CODE(S): E11.621 - Type 2 diabetes mellitus with foot ulcer; L97.502 - Non-pressure chronic ulcer of other part of unspecified foot with fat layer exposed QUALIFIERS: Diabetic foot ulcer location: midfoot Laterality: right Qualified Code(s): E11.621 - Type 2 diabetes mellitus with foot ulcer; L97.412 - 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 exposed (3) Type 2 diabetes mellitus: CODE(S): E11.9 - Type 2 diabetes mellitus without complications QUALIFIERS: Diabetes mellitus mcc insulin use: without mcc use Diabetes mellitus complication status: with skin complications Diabetes mellitus complication detail: with other skin ulcer Qualified Code(s): E11.622 - Type 2 diabetes mellitus with other skin ulcer (4) Diabetic neuropathy: CODE(S): E11.40 - Type 2 diabetes mellitus with diabetic neuropathy, unspecified QUALIFIERS: Diabetes mellitus type: type 2 Diabetes mellitus complication detail: diabetic polyneuropathy Qualified Code(s): E11.42 - Type 2 diabetes mellitus with diabetic polyneuropathy (5) Paroxysmal atrial fibrillation: CODE(S): I48.0 - Paroxysmal atrial fibrillation (6) Essential hypertension: CODE(S): I10 - Essential (primary) hypertension (7) Hyperlipidemia: CODE(S): E78.5 - Hyperlipidemia, unspecified QUALIFIERS: Hyperlipidemia type: unspecified Qualified Code(s): E78.5 - Hyperlipidemia, unspecified PLAN: Given the duration of the wound and failure of the wound to respond to standard wound care, we applied for advanced skin substitutes (Puraply, Nushield, Apligraf). The patient was approved for Puraply and Apligraf per CM Waldemar Herrera RN. Debridement performed today in clinic as annotated above. Puraply #6 applied today to the right lateral foot ulcer. 100% of the product was used. Will order an Apligraf for next week. A thin layer of hydrogel was applied to areas of dermatitis on the patient's right medial foot and covered with an ABD for padding. Hydrogel and padding also applied to the patient's posterior ankle due to erythema and dryness. 3M wrap applied for compression. Hydrogel and gauze applied to the patient's right great toe ulcer. At home wound-care instructions: Keep right lower extremity wraps and dressings clean and dry. These will be removed at your next appointment. If 3M's begin to loosen or fall, please contact the wound healing center and a nurse visit may be scheduled for these to be reapplied. Compression: Leave 3M in place until next visit. If wounds are draining through the wrap, please contact the wound healing center to schedule an appointment for a nurse visit for these to be changed. If anytime you experience numbness or discoloration of the toes but does not resolve with elevation of feet, contact the wound healing center or remove your wraps. Off-loading: Continue offloading shoe given by podiatry. The patient was instructed to avoid pressure and friction on the affected areas. Reposition every 2 hours at minimum. Avoid prolonged standing and/or dangling of legs. When seated, feet should be elevated at chest level. Frequent ambulation is encouraged. Diet: Patient encouraged to increase protein intake while taking caution to avoid high carbohydrate and/or sugar intake. Labs/cultures/imaging: Cultures from 12/08/2020 reviewed as annotated above. Patient is completing a 7-day course of Bactrim. Patient has completed a course of doxycycline. Cultures and foot x-ray were collected with Dr. Rosales on 10/26/2020. Foot x-ray, foot CT, and arterial studies were completed in September 2020 and reviewed as annotated above in HPI. Patient's lab work collected on 11/04/2020 revealed the following: CBCD: Unremarkable ESR: Normal Hemoglobin A1c 5.4% CRP: Normal prealbumin: Normal Follow-up: Return to clinic in 1 week for re-evaluation. Return sooner or report to the emergency room should symptoms worsen, or new symptoms arise. Note: [employer] speech recognition tube draw helper software was used to create portions of this document. Sound-alike and misspelled words, as well as other tube draw helper errors may be contained in the documentation.
[2020-12-23 08:35] VITALS: BP 132/65; PULSE 91; RESP 18; TEMP 35.7; BMI 26.9
--- NOTE | 2020-12-23 14:19 | PCM.WC.PN ---
History of Present Illness Date of Service: 12/23/20 Chief Complaint: Right foot wounds History of Wound: Samuel presents to the wound healing center today (11/04/20) for evaluation of a medial right foot ulcer and a lateral right foot ulcer. 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 The patient's ulcers onset around 09/20/20. He presented to Dr. Rosales's office and was referred to the [facility] [place] emergency department for evaluation. He reports he had been wearing a pair of rubber boots which rubbed his right foot and caused blisters which then developed into ulcers. He was admitted to the hospital and worked up and treated for his foot ulcers. While at the hospital, he received IV Zosyn. He had a foot x-ray on 09/19/20 which showed severe degenerative changes, but no signs of osteomyelitis. He had a lower extremity CT on 09/22/20 which did not demonstrate osteomyelitis. He had arterial studies of the bilateral lower extremities on 09/23/20 which did not demonstrate any arterial occlusive disease. His MRSA PCR was negative; his MSSA PCR was positive. He was discharged home on Augmentin x7 days. Since discharge from [facility] [place] he has been following with Dr. Rosales weekly, where he has received debridement of his ulcers. He initially was using triple antibiotic ointment and gauze dressings daily to the ulcers of his right foot. Santyl was ordered, but due to cost the patient delayed treating with Santyl until the past 2-3 weeks. Since initiating Santyl, the patient has had improvement in the appearance of his foot ulcers. He has been using an Brandon wrap for compression to his right lower extremity. He attempts to keep his right foot elevated when possible. He was previously using Agustin for nutritional supplementation, however this was discontinued due to cost. On 09/26/20, the patient reports that a wound culture was collected and a foot x-ray was obtained. Results of these will be requested. Per the patient's report, the culture indicated susceptibility to doxycycline, and he is completing a 2-week course of doxycycline tomorrow. The patient was referred to the wound healing center for a second opinion, and consideration of advanced skin substitutes. Progress of Wound: The patient's wounds are continuing to improve in size and appearance. The patient denies fever, chills, general malaise, or poor appetite. The patient has not had increased redness, swelling, or purulent/malodorous drainage from affected area. Excoriation of right medial foot has improved in the past week with the use of hydrogel and ABD padding. Objective Data Objective Data Vital Signs: Vital Signs Temp Pulse Resp BP 96.2 F L 91 18 132/65 H 12/23/20 08:35 12/23/20 08:35 12/23/20 08:35 12/23/20 08:35 Weight: 210 lb Body Mass Index (BMI) 26.9 Lab / Micro Data Micro: Microbiology 12/08/20 09:23 Wound - Right Foot Gram Stain - Final 12/08/20 09:23 Wound - Right Foot Wound Culture - Final Staphylococcus aureus Staphylococcus epidermidis Eggerthia catenaformis 12/08/20 09:23 Wound - Right Foot Anaerobic Culture - Final No anaerobic bacteria isolated. Charges/Coding Procedures Integumentary 111xxx-113xx: 17013 Mary Grace subq tissue 20 sq cm/< 150xxx-152xx: [id number] Skin sub graft face/nk/hf/g Physical Exam Const alert, no apparent distress and healthy appearing General Appearance: cooperative, comfortable and well kempt Neck supple Resp normal respiratory effort Extremity normal capillary refill and no joint enlargement General Extremity: edema right lower extremity (Trace pitting edema of right foot) trace and other findings Other Details: Abnormal structure of right foot due to postsurgical changes ; Negative for clubbing Skin Wounds: wounds noted No malodorous Wound Narrative: Right medial foot ulcer remains healed. Irritation and mild maceration significantly improved. Right lateral foot ulcer with small amount of slough and devitalized tissue present, with good granulation tissue present as well. No purulent or malodorous drainage. No tunneling, undermining, or probing to bone. Mild periulcer erythema. No warmth. No tenderness to palpation. Right great toe medial ulcer with small amount of slough and devitalized tissue present. Good granulation tissue is present as well. No purulent/malodorous drainage. No tunneling, undermining, or probing to bone. Mild periulcer erythema. No warmth or tenderness to palpation. Neuro moves all extremities Psych mental status grossly normal, cooperative and affect normal Debridement Note Debridement Note Post-Debridement Measurements and Additional Note: Post-Debridement Measurements/Treatment WC - Nurse 1 - General Ulcer Assessment Start: 12/01/20 15:00 Freq: Status: Active Protocol: LOWEXNila Activity Type Activity Date Activity User E-Sign Co-Sign Detail Recorded Client Recorded Date Recorded By Document 12/01/20 15:00 ML [id number] 12/01/20 15:04 ML Document 12/08/20 09:18 ML [id number] 12/08/20 09:23 ML Document 12/16/20 08:38 ML Desktop 12/16/20 08:51 ML Document 12/23/20 08:35 JF [id number] 12/23/20 08:53 JF 12/01/20 12/08/20 12/16/20 15:00 09:18 08:38 WC - Today's Visit Information Type of service Follow-up Visit Follow-up Visit Follow-up Visit (Physician/VISUAL TRAINING AIDE (Physician/VISUAL TRAINING AIDE (Physician/VISUAL TRAINING AIDE ) ) ) Arrival Mode Ambulatory Ambulatory Ambulatory Transfer Assistance None None Patient Identification Verified (Name & Yes Yes Yes ) Patient Requires Transmission-Based No No No Precautions Safety Precautions NA NA NA Finger Stick Blood Sugar(mg/dl) (if 111 109 101 indicated): Blood Sugar Done During Stated by Done During this Visit Patient this Visit Height and Weight Body Mass Index (BMI) 26.9 26.9 26.9 BMI Classification Overweight Overweight Overweight Vital Signs Temperature (97.8 F-99.1 F) 97.3 F L 97 F L 97.9 F Temperature Source Temporal Temporal Temporal Pulse Rate (60-100) 78 81 69 Pulse Location Monitor Monitor Monitor Respiratory Rate (12-18) 16 16 16 Respiratory rate source Observation Observation Observation Blood Pressure (90/60-120/80) 126/85 H 123/79 H 133/80 H Blood Pressure Mean (mm Hg) 98 93 97 Source Monitor Monitor Monitor Position Sitting Sitting Sitting Blood Pressure Location Left Arm Right Arm Right Arm History Since Last Visit- (Skip if this is Patient's initial visit) Have you changed medications since your No No No last visit? Any new allergies or adverse reactions No No No Had a fall/change in ADL's that may No No No increase risk of falls Signs or symptoms of abuse and/or No No No neglect since last visit Have you been in the hospital since your No No No last visit? Has dressing in place as prescribed Yes Yes Yes Has compression in place as prescribed N/A Yes Yes Has offloadiing in place as prescribed N/A N/A N/A Experienced any changes in pain level or No No No management Left Footwear Regular Shoe Diabetic Shoe Surgical Shoe with pressure relief insole Right Footwear Surgical Shoe Diabetic Shoe Regular Shoe with pressure relief insole Pain Scale: 0-10 Numeric Is Patient Pain Free? Yes Yes Yes 12/23/20 08:35 WC - Today's Visit Information Type of service Follow-up Visit (Physician/VISUAL TRAINING AIDE ) Arrival Mode Ambulatory Transfer Assistance Patient Identification Verified (Name & Yes ) Patient Requires Transmission-Based No Precautions Safety Precautions Finger Stick Blood Sugar(mg/dl) (if 108 indicated): Blood Sugar Stated by Patient Height and Weight Body Mass Index (BMI) 26.9 BMI Classification Overweight Vital Signs Temperature (97.8 F-99.1 F) 96.2 F L Temperature Source Temporal Pulse Rate (60-100) 91 Pulse Location Monitor Respiratory Rate (12-18) 18 Respiratory rate source Observation Blood Pressure (90/60-120/80) 132/65 H Blood Pressure Mean (mm Hg) 87 Source Monitor Position Supine Blood Pressure Location Right Arm History Since Last Visit- (Skip if this is Patient's initial visit) Have you changed medications since your No last visit? Any new allergies or adverse reactions No Had a fall/change in ADL's that may No increase risk of falls Signs or symptoms of abuse and/or No neglect since last visit Have you been in the hospital since your No last visit? Has dressing in place as prescribed Yes Has compression in place as prescribed Yes Has offloadiing in place as prescribed Yes Experienced any changes in pain level or No management Left Footwear Slipper Right Footwear Regular Shoe Pain Scale: 0-10 Numeric Is Patient Pain Free? Yes - Nurse 1 - General Ulcer Measurement Start: 12/01/20 15:00 Freq: Status: Active Protocol: Activity Type Activity Date Activity User E-Sign Co-Sign Detail Recorded Client Recorded Date Recorded By Document 12/01/20 15:00 ML [id number] 12/01/20 15:04 ML Document 07/08/21 09:18 ML [id number] 12/08/20 09:23 ML Document 12/16/20 08:38 ML Desktop 12/16/20 08:51 ML Document 12/23/20 08:35 [id number] 12/23/20 08:53 JF 12/01/20 12/08/20 12/16/20 15:00 09:18 08:38 Wound Center Nurse 1 #4 right medial foot -Current Size (cm) - Length 0.5 -Current Size (cm) - Width 0.5 -Current Size (cm) - Depth 0.1 -Total Square Cm 0.25 -Exudate Amt Small -Exudate Type Serosanguineous -Wound Margin Distinct, Outline Attached -Granulation Amt Medium (34-66%) -Slough/Fibrin Yes -Necrosis Amt Medium (34-66%) -Necrotic Tissue Type Adherent Slough -Texture (Priscilla-wound Skin Appearance) Assessed -Moisture (Priscilla-wound Skin Appearance) Assessed -Color (Priscilla-wound Skin Appearance) Assessed -Temperature (Priscilla-wound Skin No Abnormality Appearance) (Pt Warm) -Ulcer Cleansing Wound Cleanser -Foul Odor after Cleansing No -Anesthetic Used 4% Lidocaine Solution #3 right hallux -Combined with other wound -Current Size (cm) - Length 0.4 -Current Size (cm) - Width 0.6 -Current Size (cm) - Depth 0.1 -Total Square Cm 0.24 -Photo Taken -Epithelialization -Tunneling -Undermining/Tunneling -Circular Undermining -Exudate Amt Small -Exudate Type Serosanguineous -Wound Margin Distinct, Outline Attached -Granulation Amt Medium (34-66%) -Granulation Quality -Slough/Fibrin Yes -Necrosis Amt Medium (34-66%) -Necrotic Tissue Type Adherent Slough -Structure Exposed -Texture (Priscilla-wound Skin Appearance) Assessed -Moisture (Priscilla-wound Skin Appearance) Assessed -Color (Priscilla-wound Skin Appearance) Assessed -Temperature (Priscilla-wound Skin No Abnormality Appearance) (Pt Warm) -Tenderness on Palpation (Priscilla-wound No Skin Appearance) -Ulcer Cleansing Wound Cleanser -Foul Odor after Cleansing No -Anesthetic Used 4% Lidocaine Solution #2 Lat right foot -Combined with other wound -Current Size (cm) - Length 3.2 2 2.5 -Current Size (cm) - Width 2 1.6 1.5 -Current Size (cm) - Depth 0.1 0.1 0.2 -Total Square Cm 6.4 3.2 3.75 -Photo Taken -Epithelialization -Tunneling -Undermining/Tunneling -Circular Undermining -Exudate Amt Medium Medium Medium -Exudate Type Serosanguineous Serosanguineous Serosanguineous -Wound Margin Distinct, Distinct, Distinct, Outline Outline Outline Attached Attached Attached -Granulation Amt Medium (34-66%) Medium (34-66%) Medium (34-66%) -Granulation Quality Red -Slough/Fibrin Yes Yes -Necrosis Amt Medium (34-66%) Medium (34-66%) Medium (34-66%) -Necrotic Tissue Type Adherent Slough Adherent Slough Adherent Slough -Structure Exposed -Texture (Priscilla-wound Skin Appearance) No Abnormality Assessed Assessed -Moisture (Priscilla-wound Skin Appearance) No Abnormality Assessed Assessed -Color (Priscilla-wound Skin Appearance) No Abnormality Assessed Assessed -Temperature (Priscilla-wound Skin No Abnormality No Abnormality No Abnormality Appearance) (Pt Warm) (Pt Warm) (Pt Warm) -Tenderness on Palpation (Priscilla-wound No Skin Appearance) -Ulcer Cleansing Wound Cleanser Wound Cleanser Wound Cleanser -Foul Odor after Cleansing No No No -Anesthetic Used 4% Lidocaine 4% Lidocaine 4% Lidocaine Solution Solution Solution #1 Med right foot -Current Size (cm) - Length 0.2 -Current Size (cm) - Width 0.2 -Current Size (cm) - Depth 0.1 -Total Square Cm 0.04 -Exudate Amt Small -Exudate Type Serosanguineous -Wound Margin Distinct, Outline Attached -Granulation Amt Medium (34-66%) -Slough/Fibrin Yes -Necrosis Amt Medium (34-66%) -Necrotic Tissue Type Adherent Slough -Texture (Priscilla-wound Skin Appearance) No Abnormality -Moisture (Priscilla-wound Skin Appearance) No Abnormality -Color (Priscilla-wound Skin Appearance) No Abnormality -Ulcer Cleansing Wound Cleanser -Foul Odor after Cleansing No -Anesthetic Used 4% Lidocaine Solution Lower Limb Edema Present No Right Calf (cm) 30 26 27.5 Right Ankle (cm) 17.8 18.5 19 12/23/20 08:35 Wound Center Nurse 1 #4 right medial foot -Current Size (cm) - Length -Current Size (cm) - Width -Current Size (cm) - Depth -Total Square Cm -Exudate Amt -Exudate Type -Wound Margin -Granulation Amt -Slough/Fibrin -Necrosis Amt -Necrotic Tissue Type -Texture (Priscilla-wound Skin Appearance) -Moisture (Priscilla-wound Skin Appearance) -Color (Priscilla-wound Skin Appearance) -Temperature (Priscilla-wound Skin Appearance) -Ulcer Cleansing -Foul Odor after Cleansing -Anesthetic Used #3 right hallux -Combined with other wound No -Current Size (cm) - Length 0.3 -Current Size (cm) - Width 0.4 -Current Size (cm) - Depth 0.1 -Total Square Cm 0.12 -Photo Taken No -Epithelialization Small 1-33% -Tunneling No -Undermining/Tunneling No -Circular Undermining No -Exudate Amt Small -Exudate Type Serosanguineous -Wound Margin Flat & Intact -Granulation Amt Medium (34-66%) -Granulation Quality [place] -Slough/Fibrin Yes -Necrosis Amt Small (1-33%) -Necrotic Tissue Type Adherent Slough -Structure Exposed N/A -Texture (Priscilla-wound Skin Appearance) Assessed -Moisture (Priscilla-wound Skin Appearance) Assessed,Dry/ Scaly -Color (Priscilla-wound Skin Appearance) Assessed -Temperature (Priscilla-wound Skin No Abnormality Appearance) (Pt Warm) -Tenderness on Palpation (Priscilla-wound No Skin Appearance) -Ulcer Cleansing Rinsed/ Irrigated with Saline -Foul Odor after Cleansing No -Anesthetic Used 5% Lidocaine Gel #2 Lat right foot -Combined with other wound No -Current Size (cm) - Length 1 -Current Size (cm) - Width 1.5 -Current Size (cm) - Depth 0.1 -Total Square Cm 1.5 -Photo Taken No -Epithelialization Small 1-33% -Tunneling No -Undermining/Tunneling No -Circular Undermining No -Exudate Amt Small -Exudate Type Serosanguineous -Wound Margin Flat & Intact -Granulation Amt Medium (34-66%) -Granulation Quality Red -Slough/Fibrin Yes -Necrosis Amt Small (1-33%) -Necrotic Tissue Type Adherent Slough -Structure Exposed N/A -Texture (Priscilla-wound Skin Appearance) Assessed -Moisture (Priscilla-wound Skin Appearance) Assessed -Color (Priscilla-wound Skin Appearance) Assessed -Temperature (Priscilla-wound Skin No Abnormality Appearance) (Pt Warm) -Tenderness on Palpation (Priscilla-wound Yes Skin Appearance) -Ulcer Cleansing Wound Cleanser -Foul Odor after Cleansing No -Anesthetic Used 5% Lidocaine Gel #1 Med right foot -Current Size (cm) - Length -Current Size (cm) - Width -Current Size (cm) - Depth -Total Square Cm -Exudate Amt -Exudate Type -Wound Margin -Granulation Amt -Slough/Fibrin -Necrosis Amt -Necrotic Tissue Type -Texture (Priscilla-wound Skin Appearance) -Moisture (Priscilla-wound Skin Appearance) -Color (Priscilla-wound Skin Appearance) -Ulcer Cleansing -Foul Odor after Cleansing -Anesthetic Used Lower Limb Edema Present Yes Right Calf (cm) 29.3 Right Ankle (cm) 18 WC - Nurse 2 - General Ulcer CM Notes Start: 12/01/20 15:00 Freq: Status: Active Protocol: Activity Type Activity Date Activity User E-Sign Co-Sign Detail Recorded Client Recorded Date Recorded By Document 12/01/20 16:39 PL [id number] 12/01/20 16:42 PL Document 12/08/20 12:34 PL [id number] 12/08/20 12:37 PL Document 12/16/20 12:21 PL [id number] 12/16/20 12:27 PL Document 12/23/20 13:23 PL [id number] 12/23/20 13:28 PL 12/01/20 12/08/20 12/16/20 16:39 12:34 12:21 Wound Center Nurse 2 #4 right medial foot -Time 09:30 -Correct Patient Yes -Correct Side, Site, Position Yes -Correct Procedure Yes -Procedure Performed No -Tissue Removed Subcutaneous #3 right hallux -Time 09:30 -Correct Patient Yes -Correct Side, Site, Position Yes -Correct Procedure Yes -Procedure Performed Yes -Type of Procedure Debridement -Clinical Debridement Subcutaneous -Tissue Removed Subcutaneous -Post Debridement (cm) - Length 0.4 -Post Debridement (cm) - Width 0.4 -Post Debridement (cm) - Depth 0.1 -Total Square (Post) (cm) 0.16 -Area of Debridement (cm) - Length 0.4 -Area of Debridement (cm) - Width 0.4 -Total Square (Area) (cm) 0.16 -Tunneling No -Undermining/Tunneling No -Circular Undermining No -Wound/Ulcer Outcome Not Healed -Ulcer Cleansing Rinsed/ Irrigated with Saline -Foul Odor after Cleansing No -Bioengineered Tissue No -Bleeding Controlled with Pressure -Treatment Response Procedure Tolerated Well -Debridement - Subq, 1st 20sq cm Yes #2 Lat right foot -Time 15:37 09:40 09:30 -Correct Patient Yes Yes Yes -Correct Side, Site, Position Yes Yes Yes -Correct Procedure Yes Yes Yes -Procedure Performed Yes Yes Yes -Type of Procedure Debridement Debridement Debridement -Clinical Debridement Subcutaneous Subcutaneous Subcutaneous -Tissue Removed Subcutaneous Subcutaneous Subcutaneous -Post Debridement (cm) - Length 2.2 1.8 2.7 -Post Debridement (cm) - Width 3.5 2.6 1.8 -Post Debridement (cm) - Depth 0.1 0.1 0.1 -Total Square (Post) (cm) 7.70 4.68 4.86 -Area of Debridement (cm) - Length 2.2 1.8 2.7 -Area of Debridement (cm) - Width 3.5 2.6 1.8 -Total Square (Area) (cm) 7.70 4.68 4.86 -Tunneling No No No -Undermining/Tunneling No No No -Circular Undermining No No No -Wound/Ulcer Outcome Not Healed Not Healed Not Healed -Ulcer Cleansing Rinsed/ Rinsed/ Rinsed/ Irrigated with Irrigated with Irrigated with Saline Saline Saline -Foul Odor after Cleansing No No No -Bioengineered Tissue Yes Yes Yes -Type of Bioengineered Tissue PuraPly AM PuraPly AM PuraPly AM -Expiration Date 09/19/22 03/29/22 07/31/21 -Product Lot Number [id number] -Percent Used 100 100 100 -Lot number of Saline Used [id number] -Bleeding Controlled with Pressure Pressure Pressure -Treatment Response Procedure Procedure Procedure Tolerated Well Tolerated Well Tolerated Well -Debridement - Subq, 1st 20sq cm No No No -Apply Skin Sub - 1st 25 sq cm - Feet 1 1 1 -Apligraf (per sq cm) -PuraPly AM (per sq cm) 12 8 8 #1 Med right foot -Procedure Performed No -Wound/Ulcer Outcome Healed- Epithelialized Pain Scale: 0-10 Numeric Is Patient Pain Free? Yes Yes Yes 12/23/20 13:23 Wound Center Nurse 2 #4 right medial foot -Time -Correct Patient -Correct Side, Site, Position -Correct Procedure -Procedure Performed -Tissue Removed #3 right hallux -Time 09:30 -Correct Patient Yes -Correct Side, Site, Position Yes -Correct Procedure Yes -Procedure Performed Yes -Type of Procedure Debridement -Clinical Debridement Subcutaneous -Tissue Removed Subcutaneous -Post Debridement (cm) - Length 0.4 -Post Debridement (cm) - Width 0.4 -Post Debridement (cm) - Depth 0.1 -Total Square (Post) (cm) 0.16 -Area of Debridement (cm) - Length 0.4 -Area of Debridement (cm) - Width 0.4 -Total Square (Area) (cm) 0.16 -Tunneling No -Undermining/Tunneling No -Circular Undermining No -Wound/Ulcer Outcome Not Healed -Ulcer Cleansing Rinsed/ Irrigated with Saline -Foul Odor after Cleansing No -Bioengineered Tissue No -Bleeding Controlled with Pressure -Treatment Response Procedure Tolerated Well -Debridement - Subq, 1st 20sq cm Yes #2 Lat right foot -Time 09:30 -Correct Patient Yes -Correct Side, Site, Position Yes -Correct Procedure Yes -Procedure Performed Yes -Type of Procedure Debridement -Clinical Debridement Subcutaneous -Tissue Removed Subcutaneous -Post Debridement (cm) - Length 2.0 -Post Debridement (cm) - Width 0.8 -Post Debridement (cm) - Depth 0.1 -Total Square (Post) (cm) 1.60 -Area of Debridement (cm) - Length 2.0 -Area of Debridement (cm) - Width 0.8 -Total Square (Area) (cm) 1.60 -Tunneling No -Undermining/Tunneling No -Circular Undermining No -Wound/Ulcer Outcome Not Healed -Ulcer Cleansing Rinsed/ Irrigated with Saline -Foul Odor after Cleansing No -Bioengineered Tissue Yes -Type of Bioengineered Tissue Apligraf -Expiration Date 12/29/20 -Product Lot Number [id number] -Percent Used 3 -Lot number of Saline Used -Bleeding Controlled with Pressure -Treatment Response Procedure Tolerated Well -Debridement - Subq, 1st 20sq cm No -Apply Skin Sub - 1st 25 sq cm - Feet 1 -Apligraf (per sq cm) 2 -PuraPly AM (per sq cm) #1 Med right foot -Procedure Performed -Wound/Ulcer Outcome Pain Scale: 0-10 Numeric Is Patient Pain Free? Yes - Nurse 3 - General Ulcer D/C NN Start: 12/01/20 15:00 Freq: Status: Active Protocol: Activity Type Activity Date Activity User E-Sign Co-Sign Detail Recorded Client Recorded Date Recorded By Document 12/01/20 15:57 DL [id number] 12/01/20 16:06 DL Document 12/08/20 10:03 ML [id number] 12/08/20 10:05 ML Document 12/16/20 12:21 PL [id number] 12/16/20 12:27 PL Document 12/23/20 10:26 JF [id number] 12/23/20 10:26 JF 12/01/20 12/08/20 12/16/20 15:57 10:03 12:21 Wound Care Nurse 3 #3 right hallux -Ulcer Cleansing Rinsed/ Irrigated with Saline -Foul Odor after Cleansing No -Primary Dressing Covered/Secured with Dry Gauze & Roll Gauze #2 Lat right foot -Ulcer Cleansing Rinsed/ Irrigated with Saline -Other Dressing puraply adaptic,puraply -Primary Dressing Covered/Secured with Dry Gauze & Dry Gauze & Roll Gauze, Roll Gauze, Secured with Secured with Tape Tape #1 Med right foot -Ulcer Cleansing Rinsed/ Irrigated with Saline -Foul Odor after Cleansing No -Other Dressing hydrogel -Primary Dressing Covered/Secured with Dry Gauze Right -Multi-Layered Wrap Application Multi-Layer Multi-Layer Multi-Layer Comp - Right ($ Comp - Right ($ Comp - Right ($ ) ) ) Treatment Response Procedure Tolerated Well Pain Scale: 0-10 Numeric Is Patient Pain Free? Yes Yes - Visit Discharge Discharge Condition Stable Stable Stable Ambulatory Status Ambulatory Ambulatory Ambulatory Transportation Private Auto Private Auto Accompanied by Medication Reconcilliation completed & No provided to patient/care provider Clinical Summary of Care Provided Yes Yes 12/23/20 10:26 Wound Care Nurse 3 #3 right hallux -Ulcer Cleansing Rinsed/ Irrigated with Saline -Foul Odor after Cleansing No -Primary Dressing Covered/Secured with Dry Gauze, Secured with Tape #2 Lat right foot -Ulcer Cleansing -Other Dressing -Primary Dressing Covered/Secured with Dry Gauze & Roll Gauze, Secured with Tape #1 Med right foot -Ulcer Cleansing -Foul Odor after Cleansing -Other Dressing -Primary Dressing Covered/Secured with Right -Multi-Layered Wrap Application Multi-Layer Comp - Right ($ ) Treatment Response Pain Scale: 0-10 Numeric Is Patient Pain Free? Yes WC - Visit Discharge Discharge Condition Stable Ambulatory Status Ambulatory Transportation Private Auto Accompanied by Medication Reconcilliation completed & Yes provided to patient/care provider Clinical Summary of Care Provided Yes Wound debrided: Right lateral foot ulcer Laterality: Right Wound Grade/Stage: Choudhary 2 Type of Debridement: Excisional debridement Anesthesia Used: 5% Lidocaine Gel Depth: in the subcutaneous layer Percentage of wound debrided: 100 Instrument Used: 7mm curette Tissue Removed: Slough and devitalized tissue Severity: Fat Layer Exposed Amount of bleeding with debridement: Moderate Bleeding Controlled with: Pressure Patient tolerated procedure: Patient tolerated procedure well Additional Wound Wound debrided: Right great toe ulcer (medial) Laterality: Right Wound Grade/Stage: Choudhary 2 Type of Debridement: Excisional debridement Anesthesia Used: 5% Lidocaine Gel Depth: in the subcutaneous layer Percentage of wound debrided: 100 Instrument Used: 3mm curette Tissue Removed: Slough and devitalized tissue Severity: Fat Layer Exposed Amount of bleeding with debridement: Mild Bleeding Controlled with: Pressure Patient tolerated procedure: Patient tolerated procedure well Assessment/Plan Assessment/Plan (1) Diabetic ulcer of toe of right foot with fat layer exposed: CODE(S): E11.621 - Type 2 diabetes mellitus with foot ulcer; L97.512 - Non-pressure chronic ulcer of other part of right foot with fat layer exposed QUALIFIERS: Diabetes mellitus type: type 2 Qualified Code(s): E11.621 - Type 2 diabetes mellitus with foot ulcer; L97.512 - Non-pressure chronic ulcer of other part of right foot with fat layer exposed (2) Diabetic foot ulcer associated with type 2 diabetes mellitus, with fat layer exposed: CODE(S): E11.621 - Type 2 diabetes mellitus with foot ulcer; L97.502 - Non-pressure chronic ulcer of other part of unspecified foot with fat layer exposed QUALIFIERS: Diabetic foot ulcer location: midfoot Laterality: right Qualified Code(s): E11.621 - Type 2 diabetes mellitus with foot ulcer; L97.412 - 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 exposed (3) Type 2 diabetes mellitus: CODE(S): E11.9 - Type 2 diabetes mellitus without complications QUALIFIERS: Diabetes mellitus nursing home insulin use: without nursing home use Diabetes mellitus complication status: with skin complications Diabetes mellitus complication detail: with other skin ulcer Qualified Code(s): E11.622 - Type 2 diabetes mellitus with other skin ulcer (4) Diabetic neuropathy: CODE(S): E11.40 - Type 2 diabetes mellitus with diabetic neuropathy, unspecified QUALIFIERS: Diabetes mellitus type: type 2 Diabetes mellitus complication detail: diabetic polyneuropathy Qualified Code(s): E11.42 - Type 2 diabetes mellitus with diabetic polyneuropathy (5) Paroxysmal atrial fibrillation: CODE(S): I48.0 - Paroxysmal atrial fibrillation (6) Essential hypertension: CODE(S): I10 - Essential (primary) hypertension (7) Hyperlipidemia: CODE(S): E78.5 - Hyperlipidemia, unspecified QUALIFIERS: Hyperlipidemia type: unspecified Qualified Code(s): E78.5 - Hyperlipidemia, unspecified PLAN: Given the duration of the wound and failure of the wound to respond to standard wound care, we applied for advanced skin substitutes (Puraply, Nushield, Apligraf). The patient was approved for Puraply and Apligraf per CM Waldemar Herrera RN. Debridement performed today in clinic as annotated above. The patient has received 6 applications of Puraply to the right lateral foot ulcer. Apligraf #1 (advanced skin substitute #7) applied today to the right lateral foot ulcer. 43 cm? of Apligraf was wasted. We will plan to leave Apligraf in place for 2 weeks. Another Apligraf will be ordered today for application in 2 weeks. A thin layer of hydrogel was applied to areas of bony prominence on the patient's right medial foot and covered with an ABD for padding. 3M wrap applied for compression. Hydrogel and gauze applied to the patient's right great toe ulcer. At home wound-care instructions: Keep right lower extremity wraps and dressings clean and dry. These will be removed at your next appointment. If 3M's begin to loosen or fall, please contact the wound healing center and a nurse visit may be scheduled for these to be reapplied. Compression: Leave 3M in place until next visit. If wounds are draining through the wrap, please contact the wound healing center to schedule an appointment for a nurse visit for these to be changed. If anytime you experience numbness or discoloration of the toes but does not resolve with elevation of feet, contact the wound healing center or remove your wraps. Off-loading: Continue offloading shoe given by podiatry. The patient was instructed to avoid pressure and friction on the affected areas. Reposition every 2 hours at minimum. Avoid prolonged standing and/or dangling of legs. When seated, feet should be elevated at chest level. Intermittent ambulation is permitted. Diet: Patient encouraged to increase protein intake while taking caution to avoid high carbohydrate and/or sugar intake. Labs/cultures/imaging: No additional cultures collected today. Foot x-ray, foot CT, and arterial studies were completed in September 2020 and reviewed as annotated above in HPI. Patient's lab work collected on 11/04/2020 revealed the following: CBCD: Unremarkable ESR: Normal Hemoglobin A1c 5.4% CRP: Normal prealbumin: Normal Follow-up: Return to clinic in 1 week for a nurse visit. Legs will be re-padded and rewrapped at that time. If Apligraf is intact at next week's nurses visit, it will be left in place for an additional week. Return in 2 weeks for a provider visit. Return sooner or report to the emergency room should symptoms worsen, or new symptoms arise. Note: [employer] speech recognition vice president corporate communications software was used to create portions of this document. Sound-alike and misspelled words, as well as other vice president corporate communications errors may be contained in the documentation.
[2020-12-30 11:29] VITALS: BP 145/79; PULSE 75; RESP 18; TEMP 35.9; BMI 26.9
== END 2020-12-31 23:59 ==
LOC: WC 11:30
PROVIDERS: PCP Family Medicine; Referring Provider Podiatrist Foot & Ankle Surgery; Visit Provider Nurse Practitioner Family
DX: E11.621 Type 2 diabetes mellitus with foot ulcer (principal); L97.512 Non-pressure chronic ulcer of other part of right foot with fat layer exposed; E11.42 Type 2 diabetes mellitus with diabetic polyneuropathy; I48.0 Paroxysmal atrial fibrillation; I10 Essential (primary) hypertension; E78.5 Hyperlipidemia, unspecified; Z79.01 Long term (current) use of anticoagulants
CPT/HCPCS: 11042; 15275; 29581; 87070; 87075; 87077; 87186; 87205; Q4101; Q4196

== ENCOUNTER 2021-01-20 08:15 | Outpatient (RCR) | payer MEDICARE, SELFPAY ==
[2021-01-01 00:15] VITALS: BP 145/79; PULSE 75; RESP 18; TEMP 35.9
[2021-01-06 09:11] VITALS: BP 131/73; PULSE 73; RESP 18; TEMP 36.4; BMI 26.9
--- NOTE | 2021-01-06 13:47 | PN.PCM_ITS ---
History of Present Illness Date of Service: 01/06/21 Chief Complaint: Right foot wounds History of Wound: Samuel presents to the wound healing center today (11/04/20) for evaluation of a medial right foot ulcer and a lateral right foot ulcer. 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 The patient's ulcers onset around 09/20/20. He presented to Dr. Rosales's office and was referred to the [facility] emergency department for evaluation. He reports he had been wearing a pair of rubber boots which rubbed his right foot and caused blisters which then developed into ulcers. He was admitted to the hospital and worked up and treated for his foot ulcers. While at the hospital, he received IV Zosyn. He had a foot x-ray on 09/19/20 which showed severe degenerative changes, but no signs of osteomyelitis. He had a lower extremity CT on 09/22/20 which did not demonstrate osteomyelitis. He had arterial studies of the bilateral lower extremities on 09/23/20 which did not demonstrate any arterial occlusive disease. His MRSA PCR was negative; his MSSA PCR was positive. He was discharged home on Augmentin x7 days. Since discharge from [facility] he has been following with Dr. Rosales weekly, where he has received debridement of his ulcers. He initially was using triple antibiotic ointment and gauze dressings daily to the ulcers of his right foot. Santyl was ordered, but due to cost the patient delayed treating with Santyl until the past 2-3 weeks. Since initiating Santyl, the patient has had improvement in the appearance of his foot ulcers. He has been using an Brandon wrap for compression to his right lower extremity. He attempts to keep his right foot elevated when possible. He was previously using Agustin for nutritional supplementation, however this was discontinued due to cost. On 09/26/20, the patient reports that a wound culture was collected and a foot x-ray was obtained. Results of these will be requested. Per the patient's report, the culture indicated susceptibility to doxycycline, and he is completing a 2-week course of doxycycline tomorrow. The patient was referred to the wound healing center for a second opinion, and consideration of advanced skin substitutes. Progress of Wound: Patient's great right toe wound is healed today. The patient's right lateral foot wound has improved in size and appearance. He tolerated Apligraf #1 well; this was left in place for 2 weeks. The patient denies fever, chills, general malaise, or poor appetite. The patient has not had increased redness, swelling, or purulent/malodorous drainage from affected area. Objective Data Objective Data Vital Signs: Vital Signs Temp Pulse Resp BP 97.5 F L 73 18 131/73 H 01/06/21 09:11 01/06/21 09:11 01/06/21 09:11 01/06/21 09:11 Weight: 210 lb Body Mass Index (BMI) 26.9 Charges/Coding Procedures Integumentary 150xxx-152xx: 31821 Skin sub graft face/nk/hf/g Physical Exam Const alert, no apparent distress and healthy appearing General Appearance: cooperative, comfortable and well kempt Neck supple Resp normal respiratory effort Extremity normal capillary refill and no joint enlargement General Extremity: other findings Other Details: Abnormal structure of right foot due to postsurgical changes and Charcot foot ; Negative for clubbing or edema Skin Wounds: wounds noted No malodorous Wound Narrative: Right medial foot ulcer remains healed. Irritation and mild maceration remains improved. Right lateral foot ulcer with small amount of slough and devitalized tissue present, with good granulation tissue present as well. No purulent or malodorous drainage. No tunneling, undermining, or probing to bone. No periulcer erythema. No warmth. No tenderness to palpation. Right great toe medial ulcer is healed today. Neuro moves all extremities Psych mental status grossly normal, cooperative and affect normal Debridement Note Debridement Note Post-Debridement Measurements and Additional Note: Post-Debridement Measurements/Treatment BRONWYN - Nurse 1 - General Ulcer Assessment Start: 01/06/21 09:11 Freq: Status: Active Protocol: SAHIL Activity Type Activity Date Activity User E-Sign Co-Sign Detail Recorded Client Recorded Date Recorded By Document 01/06/21 09:11 DL [id number] 01/06/21 09:24 DL 01/06/21 09:11 - Today's Visit Information Type of service Follow-up Visit (Physician/ATHLETIC COACH ) Arrival Mode Ambulatory Transfer Assistance None Patient Identification Verified (Name & Yes ) Patient Requires Transmission-Based No Precautions Finger Stick Blood Sugar(mg/dl) (if 105 indicated): Blood Sugar Stated by Patient Height and Weight Body Mass Index (BMI) 26.9 BMI Classification Overweight Vital Signs Temperature (97.8 F-99.1 F) 97.5 F L Temperature Source Temporal Pulse Rate (60-100) 73 Pulse Location Monitor Respiratory Rate (12-18) 18 Respiratory rate source Observation Blood Pressure (90/60-120/80) 131/73 H Blood Pressure Mean (mm Hg) 92 History Since Last Visit- (Skip if this is Patient's initial visit) Have you changed medications since your No last visit? Any new allergies or adverse reactions No Had a fall/change in ADL's that may No increase risk of falls Signs or symptoms of abuse and/or No neglect since last visit Have you been in the hospital since your No last visit? Has dressing in place as prescribed Yes Has compression in place as prescribed Yes Has offloadiing in place as prescribed Yes Experienced any changes in pain level or No management Pain Scale: 0-10 Numeric Is Patient Pain Free? Yes WC - Nurse 1 - General Ulcer Measurement Start: 01/06/21 09:11 Freq: Status: Active Protocol: Activity Type Activity Date Activity User E-Sign Co-Sign Detail Recorded Client Recorded Date Recorded By Document 01/06/21 09:11 DAPHNEY [id number] 01/06/21 09:24 DL 01/06/21 09:11 Wound Center Nurse 1 #3 right hallux -Current Size (cm) - Length 0.5 -Current Size (cm) - Width 0.5 -Current Size (cm) - Depth 0.1 -Total Square Cm 0.25 -Photo Taken No -Exudate Amt None Present -Wound Margin Thickened -Granulation Amt None Present (0 %) -Necrosis Amt Small (1-33%) -Necrotic Tissue Type Eschar -Structure Exposed N/A -Texture (Priscilla-wound Skin Appearance) Scarring -Moisture (Priscilla-wound Skin Appearance) No Abnormality -Color (Priscilla-wound Skin Appearance) No Abnormality -Temperature (Priscilla-wound Skin No Abnormality Appearance) (Pt Warm) -Tenderness on Palpation (Priscilla-wound No Skin Appearance) -Ulcer Cleansing Wound Cleanser -Foul Odor after Cleansing No -Anesthetic Used 5% Lidocaine Gel #2 Lat right foot -Current Size (cm) - Length 0.8 -Current Size (cm) - Width 0.7 -Current Size (cm) - Depth 0.1 -Total Square Cm 0.56 -Photo Taken No -Exudate Amt Small -Exudate Type Serosanguineous -Wound Margin Indistinct, Non -Visible -Granulation Amt Medium (34-66%) -Granulation Quality [place] -Necrosis Amt Medium (34-66%) -Necrotic Tissue Type Adherent Slough -Structure Exposed N/A -Texture (Priscilla-wound Skin Appearance) Scarring -Moisture (Priscilla-wound Skin Appearance) Dry/Scaly -Color (Priscilla-wound Skin Appearance) No Abnormality -Temperature (Priscilla-wound Skin No Abnormality Appearance) (Pt Warm) -Tenderness on Palpation (Priscilla-wound No Skin Appearance) -Ulcer Cleansing Wound Cleanser -Foul Odor after Cleansing No -Anesthetic Used 5% Lidocaine Gel Right Calf (cm) 30.2 Right Ankle (cm) 17.6 WC - Nurse 2 - General Ulcer CM Notes Start: 01/06/21 09:11 Freq: Status: Active Protocol: Activity Type Activity Date Activity User E-Sign Co-Sign Detail Recorded Client Recorded Date Recorded By Document 01/06/21 13:34 PL [id number] 01/06/21 13:41 PL 01/06/21 13:34 Wound Center Nurse 2 #2 Lat right foot -Time 09:35 -Correct Patient Yes -Correct Side, Site, Position Yes -Correct Procedure Yes -Procedure Performed Yes -Type of Procedure Debridement -Clinical Debridement Subcutaneous -Tissue Removed Subcutaneous -Post Debridement (cm) - Length 0.9 -Post Debridement (cm) - Width 0.7 -Post Debridement (cm) - Depth 0.1 -Total Square (Post) (cm) 0.63 -Area of Debridement (cm) - Length 0.9 -Area of Debridement (cm) - Width 0.7 -Total Square (Area) (cm) 0.63 -Tunneling No -Undermining/Tunneling No -Circular Undermining No -Wound/Ulcer Outcome Not Healed -Ulcer Cleansing Rinsed/ Irrigated with Saline -Foul Odor after Cleansing No -Bioengineered Tissue Yes -Type of Bioengineered Tissue Apligraf -Expiration Date 01/13/21 -Product Lot Number [id number] -Percent Used 1 -Lot number of Saline Used [id number] -Bleeding Controlled with NA -Treatment Response Procedure Tolerated Well -Debridement - Subq, 1st 20sq cm No -Apply Skin Sub - 1st 25 sq cm - Feet 1 -Apligraf (per sq cm) 1 WC - Nurse 3 - General Ulcer D/C NN Start: 01/06/21 09:11 Freq: Status: Active Protocol: Activity Type Activity Date Activity User E-Sign Co-Sign Detail Recorded Client Recorded Date Recorded By Document 01/06/21 13:34 PL [id number] 01/06/21 13:41 PL 01/06/21 13:34 Wound Care Nurse 3 -Other Dressing ABD Right -Multi-Layered Wrap Application Multi-Layer Comp - Right ($ ) WC - Visit Discharge Discharge Condition Stable Ambulatory Status Ambulatory Transportation Private Auto Clinical Summary of Care Provided Yes Wound debrided: Right lateral foot ulcer Laterality: Right Wound Grade/Stage: Choudhary 2 Type of Debridement: Excisional debridement Anesthesia Used: 5% Lidocaine Gel Depth: in the subcutaneous layer Percentage of wound debrided: 100 Instrument Used: 5mm curette Tissue Removed: Slough and devitalized tissue Severity: Fat Layer Exposed Amount of bleeding with debridement: Moderate Bleeding Controlled with: Pressure Patient tolerated procedure: Patient tolerated procedure well Assessment/Plan Assessment/Plan (1) Diabetic foot ulcer associated with type 2 diabetes mellitus, with fat layer exposed: CODE(S): E11.621 - Type 2 diabetes mellitus with foot ulcer; L97.502 - Non-pressure chronic ulcer of other part of unspecified foot with fat layer exposed QUALIFIERS: Diabetic foot ulcer location: midfoot Laterality: right Qualified Code(s): E11.621 - Type 2 diabetes mellitus with foot ulcer; L97.412 - 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 exposed (2) Diabetic ulcer of toe of right foot with fat layer exposed: CODE(S): E11.621 - Type 2 diabetes mellitus with foot ulcer; L97.512 - Non-pressure chronic ulcer of other part of right foot with fat layer exposed QUALIFIERS: Diabetes mellitus type: type 2 Qualified Code(s): E11.621 - Type 2 diabetes mellitus with foot ulcer; L97.512 - Non-pressure chronic ulcer of other part of right foot with fat layer exposed (3) Type 2 diabetes mellitus: CODE(S): E11.9 - Type 2 diabetes mellitus without complications QUALIFIERS: Diabetes mellitus care home insulin use: without care home use Diabetes mellitus complication status: with skin complications Diabetes mellitus complication detail: with other skin ulcer Qualified Code(s): E11.622 - Type 2 diabetes mellitus with other skin ulcer (4) Diabetic neuropathy: CODE(S): E11.40 - Type 2 diabetes mellitus with diabetic neuropathy, unspecified QUALIFIERS: Diabetes mellitus type: type 2 Diabetes mellitus complication detail: diabetic polyneuropathy Qualified Code(s): E11.42 - Type 2 diabetes mellitus with diabetic polyneuropathy (5) Paroxysmal atrial fibrillation: CODE(S): I48.0 - Paroxysmal atrial fibrillation (6) Essential hypertension: CODE(S): I10 - Essential (primary) hypertension (7) Hyperlipidemia: CODE(S): E78.5 - Hyperlipidemia, unspecified QUALIFIERS: Hyperlipidemia type: unspecified Qualified Code(s): E78.5 - Hyperlipidemia, unspecified PLAN: Given the duration of the wound and failure of the wound to respond to standard wound care, we applied for advanced skin substitutes (Puraply, Nushield, Apligraf). The patient was approved for Puraply and Apligraf per CM Waldemar Herrera RN. Debridement performed today in clinic as annotated above. The patient has received 6 applications of Puraply to the right lateral foot ulcer. Apligraf #2 (advanced skin substitute #8) applied today to the right lateral foot ulcer. 43 cm? of Apligraf was wasted. We will plan to leave Apligraf in place for 2 weeks. Another Apligraf will be ordered today for application in 2 weeks. A thin layer of hydrogel was applied to areas of bony prominence on the patient's right medial foot and covered with an ABD for padding. Hydrogel and gauze padding applied to right great toe for protection at previous ulcer site. 3M wrap applied for compression. At home wound-care instructions: Keep right lower extremity wraps and dressings clean and dry. These will be removed at your next appointment. If 3M's begin to loosen or fall, please contact the wound healing center and a nurse visit may be scheduled for these to be reapplied. Compression: Leave 3M in place until next visit. If wounds are draining through the wrap, please contact the wound healing center to schedule an appointment for a nurse visit for these to be changed. If anytime you experience numbness or discoloration of the toes but does not resolve with elevation of feet, contact the wound healing center or remove your wraps. Off-loading: Continue offloading shoe given by podiatry. The patient was instructed to avoid pressure and friction on the affected areas. Reposition every 2 hours at minimum. Avoid prolonged standing and/or dangling of legs. When seated, feet should be elevated at chest level. Intermittent ambulation is permitted. Diet: Patient encouraged to increase protein intake while taking caution to avoid high carbohydrate and/or sugar intake. Labs/cultures/imaging: No additional cultures collected today. Foot x-ray, foot CT, and arterial studies were completed in September 2020 and reviewed as annotated above in HPI. Patient's lab work collected on 11/04/2020 revealed the following: CBCD: Unremarkable ESR: Normal Hemoglobin A1c 5.4% CRP: Normal prealbumin: Normal Follow-up: Return to clinic in 1 week for a nurse visit. Legs will be re-padded and rewrapped at that time. If Apligraf is intact at next week's nurses visit, it will be left in place for an additional week. Return in 2 weeks for a provider visit. Return sooner or report to the emergency room should symptoms worsen, or new symptoms arise. Note: [employer] speech recognition machinery rigger software was used to create portions of this document. Sound-alike and misspelled words, as well as other machinery rigger errors may be contained in the documentation.
[2021-01-20 07:59] VITALS: BP 148/93; PULSE 70; TEMP 36.1; BMI 26.9
--- NOTE | 2021-01-20 12:05 | PCM.WC.PN ---
History of Present Illness Date of Service: 01/20/21 Chief Complaint: Right foot wounds History of Wound: Samuel presents to the wound healing center today (11/04/20) for evaluation of a medial right foot ulcer and a lateral right foot ulcer. 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 The patient's ulcers onset around 09/20/20. He presented to Dr. Rosales's office and was referred to the [facility] emergency department for evaluation. He reports he had been wearing a pair of rubber boots which rubbed his right foot and caused blisters which then developed into ulcers. He was admitted to the hospital and worked up and treated for his foot ulcers. While at the hospital, he received IV Zosyn. He had a foot x-ray on 09/19/20 which showed severe degenerative changes, but no signs of osteomyelitis. He had a lower extremity CT on 09/22/20 which did not demonstrate osteomyelitis. He had arterial studies of the bilateral lower extremities on 09/23/20 which did not demonstrate any arterial occlusive disease. His MRSA PCR was negative; his MSSA PCR was positive. He was discharged home on Augmentin x7 days. Since discharge from [facility] he has been following with Dr. Rosales weekly, where he has received debridement of his ulcers. He initially was using triple antibiotic ointment and gauze dressings daily to the ulcers of his right foot. Santyl was ordered, but due to cost the patient delayed treating with Santyl until the past 2-3 weeks. Since initiating Santyl, the patient has had improvement in the appearance of his foot ulcers. He has been using an Brandon wrap for compression to his right lower extremity. He attempts to keep his right foot elevated when possible. He was previously using Agustin for nutritional supplementation, however this was discontinued due to cost. On 09/26/20, the patient reports that a wound culture was collected and a foot x-ray was obtained. Results of these will be requested. Per the patient's report, the culture indicated susceptibility to doxycycline, and he is completing a 2-week course of doxycycline tomorrow. The patient was referred to the wound healing center for a second opinion, and consideration of advanced skin substitutes. Progress of Wound: The patient's right foot ulcers are healed today. The patient denies fever, chills, general malaise, or poor appetite. The patient has not had increased redness or swelling of the affected areas. Objective Data Objective Data Vital Signs: Vital Signs Temp Pulse Resp BP 96.9 F L 70 18 148/93 H 01/20/21 07:59 01/20/21 07:59 01/06/21 09:11 01/20/21 07:59 Weight: 210 lb Body Mass Index (BMI) 26.9 Charges/Coding Visit Charges Office Visits / Consults: 82101 OV L3 Est Physical Exam Const alert, no apparent distress and healthy appearing General Appearance: cooperative, comfortable and well kempt Neck supple Resp normal respiratory effort Extremity normal capillary refill and no joint enlargement General Extremity: other findings Other Details: Abnormal structure of right foot due to postsurgical changes and Charcot foot ; Negative for clubbing or edema Skin Wounds: Negative for wounds noted Wound Narrative: Right medial foot ulcer remains healed. Irritation and mild maceration remains improved. Small amount of dry skin present. Right lateral foot ulcer is healed today. Right great toe medial ulcer remains healed. Neuro moves all extremities Psych mental status grossly normal, cooperative and affect normal Debridement Note Debridement Note No debridement was completed: No debridement was completed today Assessment/Plan Assessment/Plan (1) Diabetic foot ulcer associated with type 2 diabetes mellitus, with fat layer exposed: CODE(S): E11.621 - Type 2 diabetes mellitus with foot ulcer; L97.502 - Non-pressure chronic ulcer of other part of unspecified foot with fat layer exposed QUALIFIERS: Diabetic foot ulcer location: midfoot Laterality: right Qualified Code(s): E11.621 - Type 2 diabetes mellitus with foot ulcer; L97.412 - 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 exposed (2) Diabetic ulcer of toe of right foot with fat layer exposed: CODE(S): E11.621 - Type 2 diabetes mellitus with foot ulcer; L97.512 - Non-pressure chronic ulcer of other part of right foot with fat layer exposed QUALIFIERS: Diabetes mellitus type: type 2 Qualified Code(s): E11.621 - Type 2 diabetes mellitus with foot ulcer; L97.512 - Non-pressure chronic ulcer of other part of right foot with fat layer exposed (3) Type 2 diabetes mellitus: CODE(S): E11.9 - Type 2 diabetes mellitus without complications QUALIFIERS: Diabetes mellitus termite treater insulin use: without mcfp use Diabetes mellitus complication status: with skin complications Diabetes mellitus complication detail: with other skin ulcer Qualified Code(s): E11.622 - Type 2 diabetes mellitus with other skin ulcer (4) Diabetic neuropathy: CODE(S): E11.40 - Type 2 diabetes mellitus with diabetic neuropathy, unspecified QUALIFIERS: Diabetes mellitus type: type 2 Diabetes mellitus complication detail: diabetic polyneuropathy Qualified Code(s): E11.42 - Type 2 diabetes mellitus with diabetic polyneuropathy (5) Paroxysmal atrial fibrillation: CODE(S): I48.0 - Paroxysmal atrial fibrillation (6) Essential hypertension: CODE(S): I10 - Essential (primary) hypertension (7) Hyperlipidemia: CODE(S): E78.5 - Hyperlipidemia, unspecified QUALIFIERS: Hyperlipidemia type: unspecified Qualified Code(s): E78.5 - Hyperlipidemia, unspecified PLAN: Given the duration of the wound and failure of the wound to respond to standard wound care, we applied for advanced skin substitutes (Puraply, Nushield, Apligraf). The patient was approved for Puraply and Apligraf per CM Waldemar Herrera RN. The patient's right foot ulcers are healed today. No open wounds remain. The patient has received 6 applications of Puraply and 2 applications of Apligraf to the right lateral foot ulcer (8 total advanced skin substitutes). A thin layer of hydrogel was applied to previous wound sites and areas of bony prominence on the patient's right medial foot, and covered with an ABD for padding. Single Tubigrip applied for compression. At home wound-care instructions: Apply a thin layer of hydrogel to previous wound sites and pad and protect daily for the next 1-2 weeks. Compression: Continue single-layer Tubigrip. Off-loading: The patient was instructed to avoid pressure and friction on the affected areas. Reposition every 2 hours at minimum. Avoid prolonged standing and/or dangling of legs. When seated, feet should be elevated at chest level. Foot x-ray, foot CT, and arterial studies were completed in September 2020 and reviewed as annotated above in HPI. Patient's lab work collected on 11/04/2020 revealed the following: CBCD: Unremarkable ESR: Normal Hemoglobin A1c 5.4% CRP: Normal prealbumin: Normal Follow-up: Return to the wound healing center on an as-needed basis should new or recurring wounds develop. Note: [facility] speech recognition polisher and sander software was used to create portions of this document. Sound-alike and misspelled words, as well as other polisher and sander errors may be contained in the documentation.
== END 2021-01-20 09:31 | disposition home or self-care (01) ==
LOC: WC 08:15
PROVIDERS: PCP Family Medicine; Referring Provider Podiatrist Foot & Ankle Surgery; Visit Provider Nurse Practitioner Family
DX: E11.621 Type 2 diabetes mellitus with foot ulcer (principal); L97.502 Non-pressure chronic ulcer of other part of unspecified foot with fat layer exposed; L97.412 Non-pressure chronic ulcer of right heel and midfoot with fat layer exposed; L97.512 Non-pressure chronic ulcer of other part of right foot with fat layer exposed; E11.622 Type 2 diabetes mellitus with other skin ulcer; E11.42 Type 2 diabetes mellitus with diabetic polyneuropathy; I48.0 Paroxysmal atrial fibrillation; I10 Essential (primary) hypertension; E78.5 Hyperlipidemia, unspecified; Z79.01 Long term (current) use of anticoagulants; Z79.4 Long term (current) use of insulin
CPT/HCPCS: 15275; 29581; 99213; Q4101; G0463

== ENCOUNTER → 2021-04-04 14:07 | Outpatient (CLI) | payer MEDICARE, SELFPAY ==
--- NOTE | 2021-04-04 14:10 | RAD_ITS ---
STUDY: X-RAY CHEST REASON FOR EXAM: Male, 76 years old. Long-term use of AMIODARONE. History of pacemaker. No chest complaints. TECHNIQUE: PA and lateral views of the chest. COMPARISON: 03/03/2019. FINDINGS: The lungs are clear and expanded. There is no demonstrated pleural abnormality. Normal size heart. Stable left-sided cardiac pacemaker. Normal mediastinum and carmela. Normal visualized pulmonary arteries. There is atherosclerotic calcification of the aortic arch with tortuosity. The thoracic spine is obscured by the mediastinum. There is degenerative osteoarthritis of the bilateral shoulders. There is no demonstrated abnormality of the visualized soft tissue structures of the upper abdomen. RAD/Chest PA and Lateral IMPRESSION: Cardiac pacemaker without acute cardiopulmonary disease or major interval change. Electronically Signed: Beni Choudhury DO at 23:47 EDT Tel [phone], Service support ,
[2021-04-04 15:23] LABS: AST(SGOT) 21 U/L (15-37); Alanine Aminotransfer ALT/SGPT 31 U/L (16-61); Alkaline Phosphatase 137 U/L (45-117); Bilirubin, Direct 0.21 mg/dL (0.00-0.30); Free T3 2.5 pg/mL (2.18-3.98); Globulin 3.8 g/dL (2.2-4.2); Protein, Total 7.8 g/dL (6.4-8.2); T4 Free Direct 1.25 ng/dL (0.76-1.46); Thyroid Stim Hormone (TSH) 1.96 uIU/mL (0.358-3.74)
== END ==
PROVIDERS: PCP Family Medicine; Referring Provider Physician Assistant Medical; Visit Provider Physician Assistant Medical
DX: I48.0 Paroxysmal atrial fibrillation (principal); E78.5 Hyperlipidemia, unspecified; Z79.899 Other long term (current) drug therapy
CPT/HCPCS: 36415; 71046; 80076; 84439; 84443; 84481

== ENCOUNTER → 2021-04-12 07:53 | Outpatient (CLI) | payer MEDICARE, SELFPAY ==
--- NOTE | 2021-04-12 15:49 | PFTCOMP ---
COMPLETE PULMONARY FUNCTION TEST INTERPRETATION Brief HPI: Patient is a 76 year old male, currently under the care of Mildred Trevizo, who presents to [facility] for complete pulmonary function tests secondary to diagnosis of shelter medication use. Respiratory therapist reports good effort and reproducible results. Interpretation: Forced expiration spirometry shows no large airways obstructive ventilatory defect with an FEV1 of 98% predicted. There is no significant bronchodilator response by strict ATS criteria. Spirograms are of good quality and plateau slowly, indicating slowly emptying areas of the lungs. The respiratory flow volume loop shows a normal pattern. Lung volumes by body plethysmography show a normal total lung capacity at 6.62 L, 90% predicted. All other lung volumes are within normal limits. Diffusion capacity by carbon monoxide is normal at 116% predicted. The airway resistance is normal. There is no significant change compared to previous testing dated 02/25/2020. Impression: Normal PFT
== END ==
PROVIDERS: PCP Family Medicine; Referring Provider Physician Assistant Medical; Visit Provider Physician Assistant Medical
DX: I48.0 Paroxysmal atrial fibrillation (principal); Z79.899 Other long term (current) drug therapy
CPT/HCPCS: 94060; 94726; 94729

== ENCOUNTER → 2022-05-09 | Outpatient (CLI) | payer MEDICARE, SELFPAY ==
--- NOTE | 2022-05-09 09:52 | RAD_ITS ---
EXAM: XR CHEST, 2 VIEWS CLINICAL INDICATION: cough TECHNIQUE: Frontal and lateral views of the chest. This report was created using [employer] report generation technology. COMPARISON: XR Chest dated 04/04/2021 FINDINGS: LUNGS AND PLEURAL SPACES: Normal. No consolidation or edema. No pneumothorax. No effusion. HEART: Normal heart size. MEDIASTINUM: No mediastinal or hilar mass. BONES/JOINTS: No acute abnormality. SOFT TISSUES: Normal. TUBES, LINES AND DEVICES: Atrial and ventricular pacemaker wires remain in place. RAD/Chest PA and Lateral IMPRESSION: No acute cardiopulmonary abnormality. No interval change. Electronically Signed: Ruiz Prabhakar MD at 11:30 EST ,
[2022-05-09 12:13] LABS: Basophil# 0.02 X10^3/uL; Basophil% 0.2 % (0-1); Eosinophil# 0.07 X10^3/uL; Eosinophils% 0.6 % (0-5); Hematocrit 46.8 % (40-54); Lymphocyte % 11.9 % (19-41); Mean Corp Hgb Conc 32.1 g/dL (32-36); Mean Corpuscular Hgb 29.2 pg (27.0-32.0); Mean Corpuscular Volume 91.1 fL (80-94); Mean Platelet Vol. 11.3 fl (6.2-12.0); Monocyte% 12.8 % (0-10); NRBC Flagged by Analyzer 0.2 % (0-5); Neutrophil # 8.01 X10^3/uL (2.7-7.7); Neutrophil % 73.5 % (47-70); Platelet Count 235 K/mm3 (150-450); RBC Distribution Width SD 43.9 fl (35.1-43.9); Red Blood Count 5.14 M/mm3 (4.6-6.2); White Blood Count 10.9 K/mm3 (4.4-11.0)
[2022-05-09 12:42] LABS: ALB/GLOB Ratio 0.9 RATIO (0.9-2.4); AST(SGOT) 19 U/L (15-37); Alanine Aminotransfer ALT/SGPT 26 U/L (16-61); Albumin, Serum 3.7 g/dL (3.2-5.0); Alkaline Phosphatase 119 U/L (45-117); Anion Gap 7 (5-15); BUN 16 mg/dL (7-18); BUN/Creat Ratio 14.3 RATIO (10-20); Chloride 105 mmol/L (98-107); Creatinine, Serum 1.12 mg/dL (0.70-1.30); EST Glomerular Filtration Rate 68 mL/min (>60); Est Glom Filt Rate - Afr Amer 82 mL/min (>60); Globulin 4.1 g/dL (2.2-4.2); Glucose 111 mg/dL (74-106); Potassium 3.7 mmol/L (3.5-5.1); Protein, Total 7.8 g/dL (6.4-8.2); Sodium Level 138 mmol/L (136-145)
== END | disposition home or self-care (01) ==
PROVIDERS: PCP Internal Medicine; Referring Provider Internal Medicine; Visit Provider Internal Medicine
DX: J06.9 Acute upper respiratory infection, unspecified (principal); R09.81 Nasal congestion; Z20.822 Contact with and (suspected) exposure to COVID-19
CPT/HCPCS: 36415; 71046; 80053; 85025; 87635; U0003; U0005

== ENCOUNTER → 2022-07-11 | Outpatient (CLI) | payer MEDICARE, SELFPAY ==
[2022-07-11 13:08] LABS: Free T3 2.6 pg/mL (2.18-3.98); T4 Free Direct 1.22 ng/dL (0.76-1.46); Thyroid Stim Hormone (TSH) 2.78 uIU/mL (0.358-3.74)
== END | disposition home or self-care (01) ==
PROVIDERS: PCP Internal Medicine; Visit Provider Physician Assistant Medical
DX: Z79.899 Other long term (current) drug therapy (principal); I48.0 Paroxysmal atrial fibrillation
CPT/HCPCS: 36415; 84439; 84443; 84481

== ENCOUNTER → 2022-07-24 | Outpatient (CLI) | payer MEDICARE, SELFPAY ==
--- NOTE | 2022-07-25 13:50 | PFT ---
INTRODUCTION: The patient is a 77-year-old male that presents for pulmonary function studies secondary to a diagnosis of chronic amiodarone use. Respiratory therapy reported good patient effort. Bronchodilators were used during testing. INTERPRETATION: Forced expiration spirometry demonstrates no evidence of a large airways obstructive ventilatory defect. There was no significant response to aerosolized bronchodilators. Spirograms are of good quality and plateau gradually indicating slow emptying of the lungs. Body plethysmography was performed and revealed lung volumes to be within normal limits. Diffusing capacity by single breath CO was also within normal limits. IMPRESSION: Grossly normal pulmonary function studies.
== END | disposition home or self-care (01) ==
LOC: PSN 07:47
PROVIDERS: PCP Internal Medicine; Referring Provider Physician Assistant Medical; Visit Provider Physician Assistant Medical
DX: Z79.899 Other long term (current) drug therapy (principal)
CPT/HCPCS: 94060; 94726; 94729

== ENCOUNTER → 2022-08-28 | Outpatient (CLI) | payer MEDICARE, SELFPAY ==
[2022-08-28 13:23] LABS: ALB/GLOB Ratio 1.3 RATIO (0.9-2.4); AST(SGOT) 23 U/L (15-37); Alanine Aminotransfer ALT/SGPT 37 U/L (16-61); Albumin, Serum 4.2 g/dL (3.2-5.0); Alkaline Phosphatase 134 U/L (45-117); Anion Gap 4 (5-15); BUN 18 mg/dL (7-18); BUN/Creat Ratio 16.5 RATIO (10-20); Calcium,Total 8.6 mg/dL (8.5-10.1); Chloride 109 mmol/L (98-107); Cholesterol 122 mg/dL (200); Creatinine, Serum 1.09 mg/dL (0.70-1.30); EST Glomerular Filtration Rate 70 mL/min (>60); Est Glom Filt Rate - Afr Amer 85 mL/min (>60); Globulin 3.3 g/dL (2.2-4.2); Glucose 95 mg/dL (74-106); High Density Lipoprotein 47 mg/dL; Potassium 4.2 mmol/L (3.5-5.1); Protein, Total 7.5 g/dL (6.4-8.2); Sodium Level 141 mmol/L (136-145); Triglycerides 102 mg/dL; Very Low Density Lipoprotein 20 mg/dL (5-40)
== END | disposition home or self-care (01) ==
LOC: BIMLAB 10:35
PROVIDERS: PCP Internal Medicine; Referring Provider Internal Medicine; Visit Provider Internal Medicine
DX: I48.0 Paroxysmal atrial fibrillation (principal); I10 Essential (primary) hypertension
CPT/HCPCS: 36415; 80053; 80061

== ENCOUNTER → 2023-09-30 | Outpatient (CLI) | payer MEDICARE, SELFPAY ==
[2023-09-30 12:10] LABS: Absolute Lymphocyte Count 1.42 X10^3/uL (0.83-4.51); Absolute Neutrophil Count 4.6 X10^3/uL (2.0-7.7); Basophil# 0.04 X10^3/uL; Basophil% 0.6 % (0-1); Eosinophil# 0.12 X10^3/uL; Eosinophils% 1.7 % (0-5); Hemoglobin 15.5 g/dL (13.0-16.5); Lymphocyte # 1.42 X10^3/ul (0.83-4.51); Lymphocyte % 20.7 % (19-41); Mean Corpuscular Hgb 30.2 pg (27.0-32.0); Mean Corpuscular Volume 91.4 fL (80-94); Mean Platelet Vol. 11.6 fl (6.2-12.0); Monocyte# 0.67 X10^3/uL; Monocyte% 9.8 % (0-10); NRBC Flagged by Analyzer 0 % (0-5); Neutrophil # 4.61 X10^3/uL (2.7-7.7); Neutrophil % 67.1 % (47-70); Platelet Count 179 K/mm3 (150-450); RBC Distribution Width SD 44.2 fl (35.1-43.9); Red Blood Count 5.14 M/mm3 (4.6-6.2); White Blood Count 6.9 K/mm3 (4.4-11.0)
[2023-09-30 12:30] LABS: ALB/GLOB Ratio 1.1 RATIO (0.9-2.4); AST(SGOT) 25 U/L (15-37); Alanine Aminotransfer ALT/SGPT 36 U/L (16-61); Albumin, Serum 3.8 g/dL (3.2-5.0); Alkaline Phosphatase 124 U/L (45-117); Anion Gap 7 (5-15); BUN 18 mg/dL (7-18); BUN/Creat Ratio 13.8 RATIO (10-20); Calcium,Total 8.5 mg/dL (8.5-10.1); Chloride 109 mmol/L (98-107); Cholesterol 99 mg/dL (200); EST Glomerular Filtration Rate 57 mL/min (>60); Est Glom Filt Rate - Afr Amer 69 mL/min (>60); Globulin 3.4 g/dL (2.2-4.2); Glucose 108 mg/dL (74-106); High Density Lipoprotein 42 mg/dL; PSA,Total- Diagnostic 1.04 ng/mL (0.0-4.0); Potassium 4.9 mmol/L (3.5-5.1); Protein, Total 7.2 g/dL (6.4-8.2); Sodium Level 143 mmol/L (136-145); Thyroid Stim Hormone (TSH) 2.72 uIU/mL (0.358-3.74); Triglycerides 89 mg/dL; Very Low Density Lipoprotein 18 mg/dL (5-40)
[2023-09-30 12:41] LABS: Vitamin D,25 Hydroxy 47.7 ng/mL
[2023-09-30 13:47] LABS: Hemoglobin A1c 5.6 % (3.8-5.6)
== END | disposition home or self-care (01) ==
LOC: BIMLAB 11:13
PROVIDERS: PCP Internal Medicine; Referring Provider Internal Medicine; Visit Provider Internal Medicine
DX: E11.9 Type 2 diabetes mellitus without complications (principal); N40.1 Benign prostatic hyperplasia with lower urinary tract symptoms; R39.14 Feeling of incomplete bladder emptying; E55.9 Vitamin D deficiency, unspecified
CPT/HCPCS: 36415; 80053; 80061; 82043; 82306; 82570; 83036; 84153; 84443; 85025

== ENCOUNTER → 2024-03-06 | Outpatient (CLI) | payer MEDICARE, SELFPAY ==
[2024-03-06 15:39] LABS: Microalbumin,Random Urine 9.3 mg/L (NO RANGE EST.); Microalbumin:Creatinine Ratio 7.1 mg/g CRE (<30 mg/g CRE)
== END | disposition home or self-care (01) ==
LOC: LABSPEC 11:53
PROVIDERS: PCP Internal Medicine; Referring Provider Internal Medicine; Visit Provider Internal Medicine
DX: E11.622 Type 2 diabetes mellitus with other skin ulcer (principal); L98.499 Non-pressure chronic ulcer of skin of other sites with unspecified severity
CPT/HCPCS: 82043; 82570

== ENCOUNTER 2024-04-10 14:17 | Inpatient (IN) | payer MEDICARE, SELFPAY ==
[2024-04-10] VITALS (7 sets, daily range): BP systolic 121–148; BP diastolic 82–110; PULSE 69–76; RESP 12–20; TEMP 36.9–37.3; O2SAT 93–99; BMI 28.2; BMI 29.9
--- NOTE | 2024-04-10 15:00 | EKG12_ITS ---
Test Reason : DYSRHYTHMIA Blood Pressure : */* mmHG Vent. Rate : 75 BPM Atrial Rate : 75 BPM P-R Int : 376 ms QRS Dur : 94 ms QT Int : 390 ms P-R-T Axes : 54 -51 22 degrees QTcB Int : 435 ms Sinus rhythm with 1st degree A-V block Left axis deviation Incomplete right bundle branch block Abnormal ECG Confirmed by KALEB TATUM, ARTURO ([id number]), commercial production editor MILI LEUNG ([id number]) on 04/13/2024 10:27:56 AM Referred By: MILO Confirmed By: ARTURO MANUEL MD
--- NOTE | 2024-04-10 15:17 | EX.ED.DYSGE1 ---
HPI <ALINE Beaulieu - Last Filed: 04/10/24 17:20> History of Present Illness Chief Complaint: Wound Narrative Narrative: Patient is a 79-year-old male with history of hypertension hyperlipidemia, diabetes with neuropathy, Charcot foot, who presents to the emergency department with worsening wound to the right foot. Patient does see at [facility] podiatry, they have been working with this foot for roughly 8 weeks. Patient just finished 2 weeks of doxycycline. Saw the kennel supervisor today, and referred him to the emergency department. The plan is for the patient to be admitted to the hospital, possible advanced imaging. Patient denies any fever or chills. However he states he does have some intermittent pains, noted some swelling and redness. <Dr. Dionisio Javier DO - Last Filed: 04/10/24 22:28> Narrative Narrative: Patient is a 79-year-old male with history of hypertension hyperlipidemia, diabetes with neuropathy, Charcot foot, who presents to the emergency department with worsening wound to the right foot. Patient does see at [facility] podiatry, they have been working with this foot for roughly 8 weeks. Patient just finished 2 weeks of doxycycline. Saw the kennel supervisor today, and referred him to the emergency department. The plan is for the patient to be admitted to the hospital, possible advanced imaging. Patient denies any fever or chills. However he states he does have some intermittent pains, noted some swelling and redness. [facility] <ALINE Beaulieu - Last Filed: 04/10/24 17:20> [facility] Medical History (Updated 04/10/24 @ 19:[address] Dionisio Javier DO) Charcot foot due to diabetes mellitus Osteoarthritis Neuropathy Glaucoma Cataract Arthritis shelter current use of amiodarone Diabetic ulcer of toe of right foot with fat layer exposed Diabetic neuropathy Diabetic foot ulcer associated with type 2 diabetes mellitus, with fat layer exposed Diabetic foot ulcer associated with type 2 diabetes mellitus, with fat layer exposed Frequent headaches Sick sinus syndrome with tachycardia Mobitz type 2 second degree heart block Essential hypertension Fatigue Hyperlipidemia Diverticula of colon Gout Chronic laryngitis BPH (benign prostatic hyperplasia) Anxiety and depression Paroxysmal atrial tachycardia Type 2 diabetes mellitus Paroxysmal atrial fibrillation Home Medications ?Medication ?Instructions ?Recorded ?Last Taken ?Type multivitamin 1 tab PO DAILY vitamin 01/29/18 09/22/20 History tamsulosin 0.4 mg capsule 0.4 mg PO DAILY prostate 01/29/18 09/21/20 History lancets 28 gauge (FreeStyle #100 ea 01/21/23 Unknown Rx Lancets) amiodarone 200 mg tablet 100 mg (1/2 x 200 mg) PO DAILY #45 04/16/23 Unknown Rx tabs warfarin 3 mg tablet 3 mg PO DAILY #90 tabs 02/18/24 Unknown Rx gabapentin 400 mg capsule 1,200 mg (3 x 400 mg) PO TID 30 04/06/24 Unknown Rx days #270 caps atorvastatin 40 mg tablet 40 mg PO DAILY #90 TABLETS 04/10/24 Unknown Rx blood sugar diagnostic (Accu-Chek #100 strips 04/10/24 Unknown Rx Guide test strips) Allergy/AdvReac Type Severity Reaction Status Date / Time No Known Allergies Allergy Verified 04/10/24 14:18 Family History Mother Heart disease Arthritis Myocardial infarction CVA (cerebral vascular accident) Father Heart disease Arthritis Myocardial infarction CVA (cerebral vascular accident) Brother Heart disease Brother Heart disease Parkinson disease Surgical History Amputated toe History of permanent cardiac pacemaker placement (03/02/19) History of cardioversion (02/17/18) Previous back surgery History of bilateral knee replacement Social History household members: spouse 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 Smoking Status: Never smoker Electronic Cigarette Use: not used alcohol intake: never substance use type: does not use caffeine: No what type of physical activity do you participate in: none do you feel safe at home: Yes ROS <ALINE Beaulieu - Last Filed: 04/10/24 17:20> ROS ED ROS Narrative Constitutional: Negative for fever, chills, weight loss, weakness Eyes: Negative for vision loss, vision change, double vision ENT: Negative for any sore throat, ear pain, congestion Cardiovascular: Negative for any chest pain, tightness, palpitations Respiratory: Negative for any cough, sputum production, hemoptysis, dyspnea, dyspnea on exertion, orthopnea Gastrointestinal: Negative for any abdominal pain, nausea, vomiting, diarrhea, constipation, blood in stool, blood in vomit : Negative for any urinary frequency, dysuria, retention, blood in urine Muscle skeletal: Negative for any neck pain, back pain. Positive right foot pain and redness Neurological: Negative for any headache, syncope, dizziness Skin: Negative for any rashes, itching, abrasions, lacerations. Positive for diabetic foot ulcer on the lateral aspect of the right foot Psychiatric: Negative for any depression, anxiety, stress, suicidal ideation, homicidal ideation Hematologic: Negative for any excessive bruising, easy bleeding EXAM <ALIEN Beaulieu - Last Filed: 04/10/24 17:20> Physical Exam Narrative Exam Narrative: Vital signs reviewed. HEET: Head normocephalic atraumatic, TMs clear bilaterally. Posterior pharynx is clear, moist mucous membranes. Nares clear bilaterally. Neck: Supple with no lymphadenopathy or tenderness. No signs of meningismus. Cardiac: Regular rate and rhythm no murmurs gallops or rubs, equal peripheral pulses bilaterally. Respiratory: Lungs clear to auscultation bilaterally. No chest tenderness. Abdomen: Soft, nontender, nondistended. No abdominal bruit or pulsatile masses. No hepatosplenomegaly Extremities: Patient's right foot is more edematous, there is some redness to the dorsal aspect of the foot, patient is a 3 x 3 oval like diabetic foot wound/ulceration that could be down to the bone on the right foot. Patient does have some neuropathy, the foot is red, swollen, there is some warmth of that area, significantly different from the left leg. Neuro: Cranial nerves II through XII intact, no focal neurological deficits. Skin: Clean dry and intact with no rash, purpura, petechiae, vesicles or pustules. Backs/flank: No CVA tenderness, no midline spinal tenderness, no deformity. Psych: Normal mood and affect. No SI, HI or acute psychosis. Const Vital Signs: 04/10/24 14:18 04/10/24 16:17 04/10/24 16:44 Temperature 98.5 F 99.1 F Temperature Source Oral Pulse Rate 76 70 70 Respiratory Rate 18 12 16 Blood Pressure 136/110 H 121/100 H 148/85 H Blood Pressure Mean 118 107 106 Pulse Ox 99 93 93 Oxygen Delivery Method Room Air Room Air 04/10/24 16:45 04/10/24 17:45 04/10/24 18:00 Temperature 99.1 F 99.1 F 99.1 F Temperature Source Oral Oral Oral Pulse Rate 70 70 73 Respiratory Rate 16 16 18 Blood Pressure 141/92 H 136/82 H 143/87 H Blood Pressure Mean 108 100 105 Pulse Ox 93 93 93 Oxygen Delivery Method Room Air Room Air Room Air 04/10/24 19:00 Temperature 98.7 F Temperature Source Oral Pulse Rate 69 Respiratory Rate 20 H Blood Pressure 146/90 H Blood Pressure Mean 108 Pulse Ox 95 Oxygen Delivery Method Room Air Positive well nourished and well developed General Appearance ED: well developed <Dr. Dionisio Javier DO - Last Filed: 04/10/24 22:28> Physical Exam Const Vital Signs: 04/10/24 14:18 04/10/24 16:17 04/10/24 16:44 Temperature 98.5 F 99.1 F Temperature Source Oral Pulse Rate 76 70 70 Respiratory Rate 18 12 16 Blood Pressure 136/110 H 121/100 H 148/85 H Blood Pressure Mean 118 107 106 Pulse Ox 99 93 93 Oxygen Delivery Method Room Air Room Air 04/10/24 16:45 04/10/24 17:45 04/10/24 18:00 Temperature 99.1 F 99.1 F 99.1 F Temperature Source Oral Oral Oral Pulse Rate 70 70 73 Respiratory Rate 16 16 18 Blood Pressure 141/92 H 136/82 H 143/87 H Blood Pressure Mean 108 100 105 Pulse Ox 93 93 93 Oxygen Delivery Method Room Air Room Air Room Air 04/10/24 19:00 Temperature 98.7 F Temperature Source Oral Pulse Rate 69 Respiratory Rate 20 H Blood Pressure 146/90 H Blood Pressure Mean 108 Pulse Ox 95 Oxygen Delivery Method Room Air MDM <ALINE Beaulieu - Last Filed: 04/10/24 17:20> [facility] Lab Data Labs: Laboratory Results - last 24 hr 04/10/24 04/10/24 15:25 15:43 WBC 11.1 H RBC 5.25 Hgb 15.8 Hct 47.1 MCV 89.7 MCH 30.1 MCHC 33.5 RDW Std Deviation 41.5 RDW Coeff of Norberto 12.7 Plt Count 211 MPV 10.8 Immature Gran % (Auto) 0.600 Neut % (Auto) 76.5 H Lymph % (Auto) 10.9 L [place] % (Auto) 10.6 H Eos % (Auto) 0.9 Baso % (Auto) 0.5 Absolute Neuts (auto) 8.5 H Absolute Lymphs (auto) 1.21 Nucleated RBC % 0 ESR 14 PT 24.9 H INR 2.3 APTT 29.7 Sodium 137 Potassium 4.1 Chloride 108 H Carbon Dioxide 24.0 Anion Gap 5 BUN 14 Creatinine 1.11 Estim Creat Clear Calc 69.23 Est GFR (MDRD) Af Amer 82 Est GFR (MDRD) Non-Af 68 BUN/Creatinine Ratio 12.6 Glucose 108 H Lactic Acid 1.9 Calcium 9.0 Total Bilirubin 0.80 AST 23 ALT 31 Alkaline Phosphatase 162 H C-React Prot Ext Range 8.54 H Total Protein 8.1 Albumin 3.8 Globulin 4.3 H Albumin/Globulin Ratio 0.9 Radiography Diagnostic Testing: Clinical Impression(s) from Imaging Studies Foot X-Ray 04/10/24 16:25 IMPRESSION: Distal soft tissue swelling with a lateral wound of the foot. Electronically Signed: Galindo Leong DO at 18:23 EST Reading Location ID and State: [facility] / [place] Tel [phone], Service support , EKG EKG shows sinus rhythm with first-degree AV block: Attestation: I personally reviewed and interpreted this EKG as follows: Interpretation: Sinus Rhythm Comments: Sinus rhythm with first-degree AV block, rate of 75 bpm, IA interval 276 ms, QRS duration 94 ms, no acute ST elevation, no acute infarct noted. Treatment and Re-Evaluation :: Differential diagnosis includes however is not limited to: Septicemia, diabetic foot wound, osteomyelitis, abscess, free air or gas Patient appears generally well, vital signs are stable, patient is nontoxic-appearing. Presenting to the emergency department from the podiatry office for worsening right foot wound, needing for admission IV antibiotics possible advanced imaging. Patient will receive a septic workup, 2 blood cultures, x-ray of the right foot as well as inflammation markers. I did speak to the podiatry they will be coming to the [facility], they are aware the patient is going to be admitted. Patient started IV vancomycin, Rocephin. All radiologic examinations were read, reviewed by the emergency department attending. From these reads, a plan of care will be put in place. Patient's laboratory values show a CBC with a white blood, 11.1, PT 24.9 with INR 2.3, stable on Coumadin. Patient's chemistries show a glucose 108. Lactic acid 1.9. Patient's CRP is 8.54, sedimentation rate is negative. X-ray entered by ER physician shows no acute osseous erosion. Patient will need to be admitted to the hospital. IV vancomycin and Zosyn given. I have personally performed a face to face assessment of the patient and have reviewed the BETTYE note. I personally made/approved the management plan and take responsibility for the patient management. I performed a substantive portion of the visit including all aspects of the following. My barker findings include: sent in by his [place] kennel supervisor Dr. Rosales diabetic right foot wound failing outpatient therapy. Per spouse initial abrasion in February progress seen podiatry 2 weeks ago put on Augmentin and he finished it a few days ago. No fevers or chills. He is diabetic neuropathy therefore no pain. Seen in the office today, concerning worsening wound had recommended admission for IV antibiotics and more advanced imaging. He is recommend by his kennel supervisor for [facility] facility as he does not round here however patient request coming to hospital here as it is closer. Evaluation nontoxic right foot noted quarter size wound on the proximal fifth base fat exposure and erythema there is no active drainage. No streaking. Charcoal foot on the right medial aspect. Skin was intact on the side. Patient was sepsis labs right foot x-ray ordered. He is covered with Zosyn and vancomycin. Top Former discussed with on-call kennel supervisor Dr. Paris, will admit to medicine for further inpatient management. <Dr. Dionisio Javier, DO - Last Filed: 04/10/24 22:28> [facility] Lab Data Labs: Laboratory Results - last 24 hr 04/10/24 04/10/24 15:25 15:43 WBC 11.1 H RBC 5.25 Hgb 15.8 Hct 47.1 MCV 89.7 MCH 30.1 MCHC 33.5 RDW Std Deviation 41.5 RDW Coeff of Norberto 12.7 Plt Count 211 MPV 10.8 Immature Gran % (Auto) 0.600 Neut % (Auto) 76.5 H Lymph % (Auto) 10.9 L [place] % (Auto) 10.6 H Eos % (Auto) 0.9 Baso % (Auto) 0.5 Absolute Neuts (auto) 8.5 H Absolute Lymphs (auto) 1.21 Nucleated RBC % 0 ESR 14 PT 24.9 H INR 2.3 APTT 29.7 Sodium 137 Potassium 4.1 Chloride 108 H Carbon Dioxide 24.0 Anion Gap 5 BUN 14 Creatinine 1.11 Estim Creat Clear Calc 69.23 Est GFR (MDRD) Af Amer 82 Est GFR (MDRD) Non-Af 68 BUN/Creatinine Ratio 12.6 Glucose 108 H Lactic Acid 1.9 Calcium 9.0 Total Bilirubin 0.80 AST 23 ALT 31 Alkaline Phosphatase 162 H C-React Prot Ext Range 8.54 H Total Protein 8.1 Albumin 3.8 Globulin 4.3 H Albumin/Globulin Ratio 0.9 Radiography Diagnostic Testing: Clinical Impression(s) from Imaging Studies Foot X-Ray 04/10/24 16:25 IMPRESSION: Distal soft tissue swelling with a lateral wound of the foot. Electronically Signed: Galindo Leong DO at 18:23 EST Reading Location ID and State: [facility] / [place] Tel [phone], Service support , Treatment and Re-Evaluation :: Differential diagnosis includes however is not limited to: Septicemia, diabetic foot wound, osteomyelitis, abscess, free air or gas Patient appears generally well, vital signs are stable, patient is nontoxic-appearing. Presenting to the emergency department from the podiatry office for worsening right foot wound, needing for admission IV antibiotics possible advanced imaging. Patient will receive a septic workup, 2 blood cultures, x-ray of the right foot as well as inflammation markers. I did speak to the podiatry they will be coming to the [facility], they are aware the patient is going to be admitted. Patient started IV vancomycin, Rocephin. All radiologic examinations were read, reviewed by the emergency department attending. From these reads, a plan of care will be put in place. Patient's laboratory values show a CBC with a white blood, 11.1, PT 24.9 with INR 2.3, stable on Coumadin. Patient's chemistries show a glucose 108. Lactic acid 1.9. Patient's CRP is 8.54, sedimentation rate is negative. X-ray entered by ER physician shows no acute osseous erosion. Patient will need to be admitted to the hospital. IV vancomycin and Zosyn given. Attending note: I have personally performed a face to face assessment of the patient and have reviewed the BETTYE note. I personally made/approved the management plan and take responsibility for the patient management. I performed a substantive portion of the visit including all aspects of the following. My barker findings include: sent in by his [place] kennel supervisor Dr. Rosales diabetic right foot wound failing outpatient therapy. Per spouse initial abrasion in February progress seen podiatry 2 weeks ago put on Augmentin and he finished it a few days ago. No fevers or chills. He is diabetic neuropathy therefore no pain. Seen in the office today, concerning worsening wound had recommended admission for IV antibiotics and more advanced imaging. He is recommend by his kennel supervisor for [facility] facility as he does not round here however patient request coming to hospital here as it is closer. Evaluation nontoxic right foot noted quarter size wound on the proximal fifth base fat exposure and erythema there is no active drainage. No streaking. Charcoal foot on the right medial aspect. Skin was intact on the side. Patient was sepsis labs right foot x-ray ordered. He is covered with Zosyn and vancomycin. Top Former discussed with on-call kennel supervisor Dr. Paris, will admit to medicine for further inpatient management. Three-view x-ray of right foot interpreted by ED physician: No bony destruction noted. Discharge Plan Dx/Rx/DC Orders Clinical Impression: Wound, open, foot, Cellulitis, Neuropathy, Diabetic foot ulcer Disposition Disposition: Acute Care Hospital [facility] Discharge Date/Time: 04/10/24 19:36
[2024-04-10 15:44] LABS: Absolute Lymphocyte Count 1.21 X10^3/uL (0.83-4.51); Absolute Neutrophil Count 8.5 X10^3/uL (2.0-7.7); Basophil# 0.05 X10^3/uL; Basophil% 0.5 % (0-1); Eosinophils% 0.9 % (0-5); Hematocrit 47.1 % (40-54); Hemoglobin 15.8 g/dL (13.0-16.5); Lymphocyte # 1.21 X10^3/ul (0.83-4.51); Lymphocyte % 10.9 % (19-41); Mean Corp Hgb Conc 33.5 g/dL (32-36); Mean Corpuscular Hgb 30.1 pg (27.0-32.0); Mean Corpuscular Volume 89.7 fL (80-94); Mean Platelet Vol. 10.8 fl (6.2-12.0); Monocyte# 1.18 X10^3/uL; Monocyte% 10.6 % (0-10); NRBC Flagged by Analyzer 0 % (0-5); Neutrophil # 8.49 X10^3/uL (2.7-7.7); Neutrophil % 76.5 % (47-70); Platelet Count 211 K/mm3 (150-450); RBC Distribution Width CV 12.7 % (11.6-14.6); RBC Distribution Width SD 41.5 fl (35.1-43.9); Red Blood Count 5.25 M/mm3 (4.6-6.2); White Blood Count 11.1 K/mm3 (4.4-11.0)
[2024-04-10 15:57] LABS: ALB/GLOB Ratio 0.9 RATIO (0.9-2.4); AST(SGOT) 23 U/L (15-37); Alanine Aminotransfer ALT/SGPT 31 U/L (16-61); Albumin, Serum 3.8 g/dL (3.2-5.0); Alkaline Phosphatase 162 U/L (45-117); Anion Gap 5 (5-15); BUN 14 mg/dL (7-18); BUN/Creat Ratio 12.6 RATIO (10-20); CRP 8.54 mg/L (0.0-3.0); Chloride 108 mmol/L (98-107); Creatinine, Serum 1.11 mg/dL (0.70-1.30); EST Glomerular Filtration Rate 68 mL/min (>60); Est Glom Filt Rate - Afr Amer 82 mL/min (>60); Estimated Creatinine Clearance 69.23 ml/min; Globulin 4.3 g/dL (2.2-4.2); Glucose 108 mg/dL (74-106); Potassium 4.1 mmol/L (3.5-5.1); Protein, Total 8.1 g/dL (6.4-8.2); Sodium Level 137 mmol/L (136-145)
[2024-04-10] MEDS: Piperacil/Tazobactam 3.375 GM in 0.9% Normal Saline (50mL MB+) 50 ML IV ×2 (16:00→22:36)
[2024-04-10 16:02] LABS: International Normalized Ratio 2.3; Partial Thromboplast Time 29.7 Seconds (24.1-36.2); Prothrombin Time (Protime)PT. 24.9 SECONDS (11.7-14.9)
[2024-04-10 16:05] LABS: Erythrocyte Sedimentation Rate 14 mm/hr (0-20)
[2024-04-10] MEDS: Vancomycin HCl 2,000 MG in 0.9% Normal Saline (500mL Bag) 500 ML 250 MG IV (16:19)
--- NOTE | 2024-04-10 16:25 | RAD_ITS ---
INDICATION: wound EXAMINATION/TECHNIQUE: X-RAY - RIGHT XR Foot Min 3 Views 3 VIEWS COMPARISON: FINDINGS: SOFT TISSUES: There is soft tissue swelling at the distal half of the foot. There is a wound noted laterally at neither base of the fifth metatarsal bone. No radiopaque foreign body. BONES/JOINTS: No acute fracture or subluxation.. Degenerative changes with joint space narrowing at the first tarsometatarsal articulation and the first metatarsal phalangeal articulation. 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 Calcaneal spurring. No sclerotic or destructive changes observed. RAD/Foot min 3 Views IMPRESSION: Distal soft tissue swelling with a lateral wound of the foot. Electronically Signed: Galindo Leong DO at 18:23 EST Reading Location ID and State: [facility] / [place] Tel [phone], Service support ,
[2024-04-10 16:37] LABS: Lactic Acid 1.9 mmol/L (0.4-1.9)
--- NOTE | 2024-04-10 19:19 | PCM.HP.STD ---
HPI - General General Date of Admission: 04/10/24 Date of Service: 04/10/24 Chief Complaint: Right foot erythema and swelling HPI Narrative GARRETT MAHARAJ, is a 79 M with history of diabetes, BPH, permanent pacemaker, A-fib, hypertension, neuropathy who presented to [facility] ED 04/10/24 at the urging of his senior information security analyst for worsening of a R foot wound. Pt got two ulcers on his right foot, medially and laterally, about 8 weeks ago and has been following with his [facility] senior information security analyst Dr. Rosales and it had been healing well until today when the dressing was taken off and it had increased erythema and warmth that was fairly rapidly progressing. In the ED patient with white count of 11.1, CRP minimally elevated 8.54 but given patient's worsened erythema and swelling with concern for infection that progressed significantly in the course of a few hours patient given IV antibiotics and the senior information security analyst on-call contacted. Hospitalist contacted for admission. Patient evaluated with at bedside, he reports history as above and that the medial ulcer had completely healed and the left ulcer was doing well, usually tends to his wound but did not unwrap it this morning New that they would be seen today, wound was unwrapped the medial area had erythema and warmth and the lateral ulcer also looked worse which is a change from yesterday. Patient denies any fevers, does have headaches every night before he goes to bed and reports nobody has ever been able to figure out what this is but there has been no change. ROS otherwise negative. [facility] Medical History (Updated 04/10/24 @ 19:[address] 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 Neuropathy Osteoarthritis Paroxysmal atrial fibrillation Paroxysmal atrial tachycardia Sick sinus syndrome with tachycardia Type 2 diabetes mellitus Home Medications ?Medication ?Instructions ?Recorded ?Last Taken ?Type multivitamin 1 tab PO DAILY vitamin 01/29/18 09/22/20 History tamsulosin 0.4 mg capsule 0.4 mg PO DAILY prostate 01/29/18 09/21/20 History lancets 28 gauge (FreeStyle #100 ea 01/21/23 Unknown Rx Lancets) amiodarone 200 mg tablet 100 mg (1/2 x 200 mg) PO DAILY #45 04/16/23 Unknown Rx tabs warfarin 3 mg tablet 3 mg PO DAILY #90 tabs 02/18/24 Unknown Rx gabapentin 400 mg capsule 1,200 mg (3 x 400 mg) PO TID 30 04/06/24 Unknown Rx days #270 caps atorvastatin 40 mg tablet 40 mg PO DAILY #90 TABLETS 04/10/24 Unknown Rx blood sugar diagnostic (Accu-Chek #100 strips 04/10/24 Unknown Rx Guide test strips) Allergy/AdvReac Type Severity Reaction Status Date / Time No Known Allergies Allergy Verified 04/10/24 14:18 Family History Mother Heart disease Arthritis Myocardial infarction CVA (cerebral vascular accident) Father Heart disease Arthritis Myocardial infarction CVA (cerebral vascular accident) Brother Heart disease Brother Heart disease Parkinson disease Surgical History Amputated toe History of bilateral knee replacement History of cardioversion (02/17/18) History of permanent cardiac pacemaker placement (03/02/19) Previous back surgery Social History household members: spouse 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 Smoking Status: Never smoker Electronic Cigarette Use: not used alcohol intake: never substance use type: does not use caffeine: No what type of physical activity do you participate in: none do you feel safe at home: Yes ROS ROS Narrative General: Denies fever/chills HENT: Has some evening headaches which is unchanged, denies stuffy nose, denies sore throat EYES: Denies changes in vision Resp: Denies cough, denies shortness of breath Cardiac: Denies chest pain GI: Denies abdominal pain, denies changes in bowel, denies nausea/vomiting : Denies changes in urination Extremity: Denies swelling MSK: Denies weakness Neuro: Denies any numbness/tingling Heme: Denies any bleeding or bruising Skin: Some medial erythema and warmth as well as some worsening erythema around the lateral ulcer Psychiatric: No complaints voiced Vital Signs Vital Signs Vital Signs: 04/10/24 14:18 04/10/24 16:17 04/10/24 16:44 Temperature 98.5 F 99.1 F Temperature Source Oral Pulse Rate 76 70 70 Respiratory Rate 18 12 16 Blood Pressure 136/110 H 121/100 H 148/85 H Blood Pressure Mean 118 107 106 Pulse Ox 99 93 93 Oxygen Delivery Method Room Air Room Air 04/10/24 16:45 04/10/24 17:45 04/10/24 18:00 Temperature 99.1 F 99.1 F 99.1 F Temperature Source Oral Oral Oral Pulse Rate 70 70 73 Respiratory Rate 16 16 18 Blood Pressure 141/92 H 136/82 H 143/87 H Blood Pressure Mean 108 100 105 Pulse Ox 93 93 93 Oxygen Delivery Method Room Air Room Air Room Air 04/10/24 19:00 Temperature 98.7 F Temperature Source Oral Pulse Rate 69 Respiratory Rate 20 H Blood Pressure 146/90 H Blood Pressure Mean 108 Pulse Ox 95 Oxygen Delivery Method Room Air Weight Weight: 99.79 kg Body Mass Index (BMI) 28.2 Physical Exam Narrative General: Alert, oriented, no apparent distress HEENT: Atraumatic, normocephalic Eyes: Anicteric, normal conjunctiva, extraocular movements grossly intact Neck: Supple Respiratory: Clear to auscultation bilaterally, normal respiratory effort Cardiovascular: Regular rate and rhythm GI: Soft, nontender, nondistended Extremities: As below Musculoskeletal: Moving all extremities Neuro: No overt focal neurological deficits Skin: Ulcer on the lateral part of right foot with some surrounding erythema and also medial area of right foot with erythema and warmth Psych: Cooperative Results Lab / Micro Data 04/10/24 15:25 04/10/24 15:25 Labs: Laboratory Results - last 24 hr 04/10/24 15:25: WBC 11.1 H, RBC 5.25, Hgb 15.8, Hct 47.1, MCV 89.7, MCH 30.1, MCHC 33.5, RDW Std Deviation 41.5, RDW Coeff of Norberto 12.7, Plt Count 211, MPV 10.8, Immature Gran % (Auto) 0.600, Neut % (Auto) 76.5 H, Lymph % (Auto) 10.9 L, [place] % (Auto) 10.6 H, Eos % (Auto) 0.9, Baso % (Auto) 0.5, Absolute Neuts (auto) 8.5 H, Absolute Lymphs (auto) 1.21, Nucleated RBC % 0, ESR 14, PT 24.9 H, INR 2.3, APTT 29.7, Sodium 137, Potassium 4.1, Chloride 108 H, Carbon Dioxide 24.0, Anion Gap 5, BUN 14, Creatinine 1.11, Estim Creat Clear Calc 69.23, Est GFR (MDRD) Af Amer 82, Est GFR (MDRD) Non-Af 68, BUN/Creatinine Ratio 12.6, Glucose 108 H, Calcium 9.0, Total Bilirubin 0.80, AST 23, ALT 31, Alkaline Phosphatase 162 H, C-React Prot Ext Range 8.54 H, Total Protein 8.1, Albumin 3.8, Globulin 4.3 H, Albumin/Globulin Ratio 0.9 04/10/24 15:43: Lactic Acid 1.9 Imaging Radiology Impression Foot X-Ray 04/10/24 16:25 IMPRESSION: Distal soft tissue swelling with a lateral wound of the foot. Electronically Signed: Galindo Leong DO at 18:23 EST Reading Location ID and State: [address] [place] [address] Tel [phone], Service support , Assessment & Plan Assessment/Plan (1) Diabetic foot ulcer: PLAN: Plan # Infected right diabetic foot ulcer/history of Charcot foot -No significant esr or crp elevation and wbc 11.1, afebrile but erythema and warmth started suddenly and quickly progressed -X-ray with swelling but no other changes noted -Continue broad-spectrum antibiotics -Podiatry consult -Culture if able -Wound care consult -Will consult PT # Paroxysmal A-fib/PPM/hypertension -Continue home coumadin -INR 2.3 -Repeat in AM -Continue amio -Continue atorvastatin #Type 2 diabetes mellitus/neuropathy -Glucose checks and sliding scale insulin -continue gabapentin #Chronic BPH with obstruction -Continue home medications #DVT ppx: Heparin subcu Rosana Saleem MD Time spent in the patient's overall evaluation, decision-making process, review of diagnostic data, adjustment of management, discussion with other providers, nursing and ancillary staff involved in patient's care documentation, 57 Minutes Charges/Coding Visit Charges Inpatient E&M: 27320 Init Hosp L2
--- NOTE | 2024-04-10 22:31 | PCM.RX.CS ---
Consult Antibiotic Management Pharmacy has been consulted to manage selected antibiotic: Vancomycin Type of Intervention Type of Consult: New start Suspected Infection Suspected Infection: Skin/Soft tissue Labs Labs: Sodium 137 mmol/L (136-145) 04/10/24 15:25 Potassium 4.1 mmol/L (3.5-5.1) 04/10/24 15:25 Chloride 108 mmol/L (98-107) H 04/10/24 15:25 Carbon Dioxide 24.0 mmol/L (21.0-32.0) 04/10/24 15:25 Anion Gap 5 (5-15) 04/10/24 15:25 BUN 14 mg/dL (7-18) 04/10/24 15:25 Creatinine 1.11 mg/dL (0.70-1.30) 04/10/24 15:25 Est GFR (MDRD) Af Amer 82 mL/min (>60) 04/10/24 15:25 Est GFR (MDRD) Non-Af 68 mL/min (>60) 04/10/24 15:25 BUN/Creatinine Ratio 12.6 RATIO (10-20) 04/10/24 15:25 Glucose 108 mg/dL (74-106) H 04/10/24 15:25 Dosing Weight Weight used for dosin kg Estimated Creatinine Clearance Estimated Creatinine Clearance: 69 Goal Trough Goal Trough: 15-20 mcg/mL Pharmacy Plan for Drug Dosing Pharmacy Plan for Drug Dosing: Pharmacy Service will continue to monitor and adjust dosing as required. Follow-Up Labs Follow-Up Labs: Trough: Vancomycin Date/Time Labs Ordered Labs to be done on [date and time ordered]: 04/12/24 @0405
[2024-04-10] MEDS: Heparin Injection (Vial) 5,000 UNIT/ML VIAL 5000 UNIT SC (22:37)
[2024-04-10] MEDS: Atorvastatin Calcium 40 MG Tablet PO (22:38)
[2024-04-10] MEDS: Gabapentin 400 MG Capsule 1200 MG PO (22:38)
[2024-04-10 23:16] LABS: Bedside Glucose 101 mg/dL (74-106)
[2024-04-11 02:41] VITALS: BP 129/84; PULSE 66; RESP 18; TEMP 36.8; O2SAT 95
[2024-04-11 05:26] LABS: Absolute Lymphocyte Count 1.51 X10^3/uL (0.83-4.51); Basophil# 0.04 X10^3/uL; Basophil% 0.5 % (0-1); Eosinophil# 0.16 X10^3/uL; Eosinophils% 1.8 % (0-5); Hematocrit 43.2 % (40-54); Hemoglobin 14.2 g/dL (13.0-16.5); Lymphocyte # 1.51 X10^3/ul (0.83-4.51); Lymphocyte % 17.1 % (19-41); Mean Corp Hgb Conc 32.9 g/dL (32-36); Mean Corpuscular Hgb 29.5 pg (27.0-32.0); Mean Corpuscular Volume 89.8 fL (80-94); Mean Platelet Vol. 10.9 fl (6.2-12.0); Monocyte# 1.07 X10^3/uL; Monocyte% 12.1 % (0-10); NRBC Flagged by Analyzer 0 % (0-5); Neutrophil # 6.02 X10^3/uL (2.7-7.7); Platelet Count 198 K/mm3 (150-450); RBC Distribution Width CV 12.8 % (11.6-14.6); RBC Distribution Width SD 42.2 fl (35.1-43.9); Red Blood Count 4.81 M/mm3 (4.6-6.2); White Blood Count 8.8 K/mm3 (4.4-11.0)
[2024-04-11] MEDS: Vancomycin HCl 1,250 MG in 0.9% Normal Saline (250mL Bag) 250 ML 167 MG IV ×2 (05:28→16:58)
[2024-04-11] MEDS: Gabapentin 400 MG Capsule 1200 MG PO ×3 (05:43→21:17)
[2024-04-11] MEDS: Piperacil/Tazobactam 3.375 GM in 0.9% Normal Saline (50mL MB+) 50 ML IV ×3 (05:44→21:16)
[2024-04-11] MEDS: Heparin Injection (Vial) 5,000 UNIT/ML VIAL 5000 UNIT SC ×3 (05:45→21:17)
[2024-04-11 06:00] LABS: Anion Gap 6 (5-15); BUN 14 mg/dL (7-18); BUN/Creat Ratio 13.9 RATIO (10-20); Calcium,Total 8.5 mg/dL (8.5-10.1); Chloride 107 mmol/L (98-107); Creatinine, Serum 1.01 mg/dL (0.70-1.30); EST Glomerular Filtration Rate 76 mL/min (>60); Est Glom Filt Rate - Afr Amer 92 mL/min (>60); Estimated Creatinine Clearance 78.17 ml/min; Glucose 108 mg/dL (74-106); International Normalized Ratio 2.1; Potassium 3.9 mmol/L (3.5-5.1); Prothrombin Time (Protime)PT. 23.7 SECONDS (11.7-14.9); Sodium Level 139 mmol/L (136-145)
[2024-04-11 06:04] LABS: Bedside Glucose 91 mg/dL (74-106)
[2024-04-11 08:30] VITALS: BP 143/85; PULSE 64; RESP 18; TEMP 36.6; O2SAT 98
[2024-04-11] MEDS: Amiodarone 200 MG Tablet 100 MG PO (08:46)
[2024-04-11] MEDS: Tamsulosin HCl 0.4 MG Capsule PO (10:19)
--- NOTE | 2024-04-11 12:41 | CON.PCM_ITS ---
Assessment & Plan Assessment/Plan (1) Diabetic foot ulcer: QUALIFIERS: Diabetic foot ulcer location: midfoot Diabetes mellitus type: type 2 Laterality: right Non-pressure ulcer stage: with fat layer exposed Qualified Code(s): E11.621 - Type 2 diabetes mellitus with foot ulcer; L97.412 - 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 exposed (2) Cellulitis: QUALIFIERS: Site of cellulitis: extremity Site of cellulitis of extremity: lower extremity Laterality: right Qualified Code(s): L03.115 - Cellulitis of right lower limb (3) Wound, open, foot: QUALIFIERS: Encounter type: initial encounter Laterality: right Qualified Code(s): S91.301A - Unspecified open wound, right foot, initial encounter PLAN: Plan recommend IV abx that he is on until cultures return then send him home of appropriate oral meds, His can do dressing changes. then refer to wound center. He's been there before with this same problem HPI Consult Data Date of Consult: 04/11/24 HPI Narrative Reason for Consultation: right foot infection HPI Narrative: GARRETT MAHARAJ, is a 79 M who presents through the ER. I was consulted. pt of Dr. 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 Diabetic ulcer of toe of right foot with fat layer exposed Diabetic neuropathy Diabetic foot ulcer associated with type 2 diabetes mellitus, with fat layer exposed Diabetic foot ulcer associated with type 2 diabetes mellitus, with fat layer exposed Frequent headaches Sick sinus syndrome with tachycardia Mobitz type 2 second degree heart block Essential hypertension Fatigue Hyperlipidemia Diverticula of colon Gout Chronic laryngitis BPH (benign prostatic hyperplasia) Anxiety and depression Paroxysmal atrial tachycardia Type 2 diabetes mellitus Paroxysmal atrial fibrillation Home Medications ?Medication ?Instructions ?Recorded ?Last Taken ?Type multivitamin 1 tab PO DAILY vitamin 01/29/18 09/22/20 History tamsulosin 0.4 mg capsule 0.4 mg PO DAILY prostate 01/29/18 09/21/20 History lancets 28 gauge (FreeStyle #100 ea 01/21/23 Unknown Rx Lancets) amiodarone 200 mg tablet 100 mg (1/2 x 200 mg) PO DAILY #45 04/16/23 Unknown Rx tabs warfarin 3 mg tablet 3 mg PO DAILY #90 tabs 02/18/24 Unknown Rx gabapentin 400 mg capsule 1,200 mg (3 x 400 mg) PO TID 30 04/06/24 Unknown Rx days #270 caps atorvastatin 40 mg tablet 40 mg PO DAILY #90 TABLETS 04/10/24 Unknown Rx blood sugar diagnostic (Accu-Chek #100 strips 04/10/24 Unknown Rx Guide test strips) psyllium husk 3.4 gram/5.4 gram 2 tsp PO BID daily fiber 04/11/24 04/10/24 22:00 History oral powder (Metamucil) 2 tsp Allergy/AdvReac Type Severity Reaction Status Date / Time No Known Allergies Allergy Verified 04/10/24 14:18 Family History Mother Heart disease Arthritis Myocardial infarction CVA (cerebral vascular accident) Father Heart disease Arthritis Myocardial infarction CVA (cerebral vascular accident) Brother Heart disease Brother Heart disease Parkinson disease Surgical History Amputated toe History of permanent cardiac pacemaker placement (03/02/19) History of cardioversion (02/17/18) Previous back surgery History of bilateral knee replacement Social History household members: spouse 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 Smoking Status: Never smoker Electronic Cigarette Use: not used alcohol intake: never substance use type: does not use caffeine: No what type of physical activity do you participate in: none do you feel safe at home: Yes ROS ROS Narrative resting comfortably in no apparent distress, no pain, no n/v/d, no fever or chills Integumentary Integumentary: Reports wounds Neurologic Neurologic: Reports abnormal gait, abnormal speech, confusion, dizziness, focal weakness, lack of coordination, numbness, seizures, tingling, tremor(s) and weakness Physical Exam Const alert, oriented x3, no apparent distress and well nourished General Appearance: cooperative and well developed Lymph Lymphatic: no lymphadenopathy noted Resp normal respiratory effort and normal air movement Extremity normal capillary refill, no clubbing, cyanosis or edema and no calf tenderness Extremity Narrative: right foot with lateral wound with some ischemic tissue but no undermining, no sinus tract, no deep abcess noted with debridement, no purulence, no odor, mild serous drainage. medial foot abrasion from shoe rub/charcot foot, not open. no swelling of limb, no extending redness, no purulence, does not probe to bone Skin Wounds: wounds noted Wound Narrative: as above, noted to be about 3x4 cm lateral 5th met base. bleeds very well Neuro Gait (Neuro): normal gait Lab / Micro Data 04/11/24 05:05 04/11/24 05:05 Labs: Laboratory Results - last 24 hr 04/10/24 15:25: WBC 11.1 H, RBC 5.25, Hgb 15.8, Hct 47.1, MCV 89.7, MCH 30.1, MCHC 33.5, RDW Std Deviation 41.5, RDW Coeff of Norberto 12.7, Plt Count 211, MPV 10.8, Immature Gran % (Auto) 0.600, Neut % (Auto) 76.5 H, Lymph % (Auto) 10.9 L, [place] % (Auto) 10.6 H, Eos % (Auto) 0.9, Baso % (Auto) 0.5, Absolute Neuts (auto) 8.5 H, Absolute Lymphs (auto) 1.21, Nucleated RBC % 0, ESR 14, PT 24.9 H, INR 2.3, APTT 29.7, Sodium 137, Potassium 4.1, Chloride 108 H, Carbon Dioxide 24.0, Anion Gap 5, BUN 14, Creatinine 1.11, Estim Creat Clear Calc 69.23, Est GFR (MDRD) Af Amer 82, Est GFR (MDRD) Non-Af 68, BUN/Creatinine Ratio 12.6, Glucose 108 H, Calcium 9.0, Total Bilirubin 0.80, AST 23, ALT 31, Alkaline Phosphatase 162 H, C-React Prot Ext Range 8.54 H, Total Protein 8.1, Albumin 3.8, Globulin 4.3 H, Albumin/Globulin Ratio 0.9 04/10/24 15:43: Lactic Acid 1.9 04/10/24 22:40: POC Glucose 101 04/11/24 05:05: WBC 8.8, RBC 4.81, Hgb 14.2, Hct 43.2, MCV 89.8, MCH 29.5, MCHC 32.9, RDW Std Deviation 42.2, RDW Coeff of Norberto 12.8, Plt Count 198, MPV 10.9, Immature Gran % (Auto) 0.500, Neut % (Auto) 68.0, Lymph % (Auto) 17.1 L, [place] % (Auto) 12.1 H, Eos % (Auto) 1.8, Baso % (Auto) 0.5, Absolute Neuts (auto) 6.0, Absolute Lymphs (auto) 1.51, Nucleated RBC % 0, PT 23.7 H, INR 2.1, Sodium 139, Potassium 3.9, Chloride 107, Carbon Dioxide 25.0, Anion Gap 6, BUN 14, Creatinine 1.01, Estim Creat Clear Calc 78.17, Est GFR (MDRD) Af Amer 92, Est GFR (MDRD) Non-Af 76, BUN/Creatinine Ratio 13.9, Glucose 108 H, Calcium 8.5 04/11/24 05:30: POC Glucose 91 Micro: Microbiology 04/10/24 22:35 Wound - Right Foot Skin and Soft Tissue MRSA/MSSA (PCR - Final Imaging Radiology Impression Foot X-Ray 04/10/24 16:25 IMPRESSION: Distal soft tissue swelling with a lateral wound of the foot. Electronically Signed: Galindo Leong DO at 18:23 EST Reading Location ID and State: [address] [place] [address] Tel [phone], Service support , agree with report, xrays reviewed, no berry erosion or air in the tissue, no abcess or osteo
--- NOTE | 2024-04-11 13:17 | PN.HOSP_ITS ---
Reason for Visit Reason for Visit: Right foot swelling and erythema Subjective Subjective Patient states he is feeling well. No significant complaints at this time. Not having any pain. Objective Data Objective Data Vital Signs: Vital Signs Temp Pulse Resp BP Pulse Ox O2 Del Method 97.8 F 64 18 143/85 H 98 Room Air 04/11/24 08:30 04/11/24 08:30 04/11/24 08:30 04/11/24 08:30 04/11/24 08:30 04/11/24 08:30 Oxygen Delivery Method Room Air Weight: 105.9 kg Body Mass Index (BMI) 29.9 Intake & Output: Intake and Output for Last 24 Hours 04/09/24 04/10/24 04/11/24 23:59 23:59 23:59 Intake Total 590 / 590 775 / 775 Output Total 100 / 100 275 / 275 Balance 490 / 490 500 / 500 Lab / Micro Data 04/11/24 05:05 04/11/24 05:05 Labs: Laboratory Results - last 24 hr 04/10/24 15:25: WBC 11.1 H, RBC 5.25, Hgb 15.8, Hct 47.1, MCV 89.7, MCH 30.1, MCHC 33.5, RDW Std Deviation 41.5, RDW Coeff of Norberto 12.7, Plt Count 211, MPV 10.8, Immature Gran % (Auto) 0.600, Neut % (Auto) 76.5 H, Lymph % (Auto) 10.9 L, [place] % (Auto) 10.6 H, Eos % (Auto) 0.9, Baso % (Auto) 0.5, Absolute Neuts (auto) 8.5 H, Absolute Lymphs (auto) 1.21, Nucleated RBC % 0, ESR 14, PT 24.9 H, INR 2.3, APTT 29.7, Sodium 137, Potassium 4.1, Chloride 108 H, Carbon Dioxide 24.0, Anion Gap 5, BUN 14, Creatinine 1.11, Estim Creat Clear Calc 69.23, Est GFR (MDRD) Af Amer 82, Est GFR (MDRD) Non-Af 68, BUN/Creatinine Ratio 12.6, Glucose 108 H, Calcium 9.0, Total Bilirubin 0.80, AST 23, ALT 31, Alkaline Phosphatase 162 H, C-React Prot Ext Range 8.54 H, Total Protein 8.1, Albumin 3.8, Globulin 4.3 H, Albumin/Globulin Ratio 0.9 04/10/24 15:43: Lactic Acid 1.9 04/10/24 22:40: POC Glucose 101 04/11/24 05:05: WBC 8.8, RBC 4.81, Hgb 14.2, Hct 43.2, MCV 89.8, MCH 29.5, MCHC 32.9, RDW Std Deviation 42.2, RDW Coeff of Norberto 12.8, Plt Count 198, MPV 10.9, Immature Gran % (Auto) 0.500, Neut % (Auto) 68.0, Lymph % (Auto) 17.1 L, [place] % (Auto) 12.1 H, Eos % (Auto) 1.8, Baso % (Auto) 0.5, Absolute Neuts (auto) 6.0, Absolute Lymphs (auto) 1.51, Nucleated RBC % 0, PT 23.7 H, INR 2.1, Sodium 139, Potassium 3.9, Chloride 107, Carbon Dioxide 25.0, Anion Gap 6, BUN 14, Creatinine 1.01, Estim Creat Clear Calc 78.17, Est GFR (MDRD) Af Amer 92, Est GFR (MDRD) Non-Af 76, BUN/Creatinine Ratio 13.9, Glucose 108 H, Calcium 8.5 04/11/24 05:30: POC Glucose 91 Micro: Microbiology 04/10/24 22:35 Wound - Right Foot Skin and Soft Tissue MRSA/MSSA (PCR - Final Radiography Diagnostic Testing: Radiology Impression Foot X-Ray 04/10/24 16:25 IMPRESSION: Distal soft tissue swelling with a lateral wound of the foot. Electronically Signed: Galindo Leong DO at 18:23 EST Reading Location ID and State: [facility] / [place] Tel [phone], Service support , Physical Exam Const alert, oriented x3, no apparent distress and well nourished Constitutional Narrative: Very pleasant, elderly, white male, sitting up in a chair at the bedside, appears comfortable, nontoxic, at bedside HEENT head/scalp atraumatic and moist oral mucous membranes Head and Scalp: normocephalic Resp normal respiratory effort, no retractions, no use of accessory muscles and clear to auscultation bilaterally Auscultation: Negative for rales, rhonchi or wheezes Cardio regular rate, regular rhythm, S1 normal heart sound, S2 normal heart sound, no murmurs, no rub, no gallops and no clicks GI normal to inspection, nondistended, normoactive bowel sounds, soft to palpation and non-tender Extremity Extremity Narrative: 1+ cap refill right lower extremity, no clubbing or cyanosis, no edema, right foot with dressing in place and was just put on so we will reevaluate tomorrow Neuro oriented x3, moves all extremities and no focal motor deficits Speech: speech normal Psych affect normal Psych Narrative: Very pleasant, interacts appropriately Assessment & Plan Assessment/Plan (1) Diabetic foot ulcer: QUALIFIERS: Diabetes mellitus type: type 2 Diabetic foot ulcer location: midfoot Laterality: right Non-pressure ulcer stage: with fat layer exposed Qualified Code(s): E11.621 - Type 2 diabetes mellitus with foot ulcer; L97.412 - 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 exposed (2) Cellulitis: QUALIFIERS: Laterality: right Site of cellulitis: extremity Site of cellulitis of extremity: lower extremity Qualified Code(s): L03.115 - Cellulitis of right lower limb PLAN: Plan Infected right diabetic foot ulcer/history of Charcot foot -X-ray shows only edema -Continue broad-spectrum antibiotics with vancomycin and Zosyn -Cultures are pending -Podiatry has evaluated the patient and recommended continuing antibiotics targeted to microbes on culture with discharge and follow-up at the wound center next week -Cultures are pending and will transition to oral antibiotics if able tomorrow with plans for discharge -If final cultures are not available tomorrow will need to await cultures on Saturday -Weightbearing as tolerated - to do dressing changes at home -No surgical intervention required -Possible discharge tomorrow Paroxysmal atrial fibrillation/PPM/essential HTN/HPL -Continue home amiodarone -Continue home Coumadin -INR is therapeutic -Continue home atorvastatin DM-2 -Patient is diet controlled diabetic -Patient with history of being very well-controlled -On no oral medications at home -Continue SSI -Accu-Cheks as ordered Diabetic neuropathy -Continue home gabapentin BPH with obstruction -Continue home Flomax Obesity -BMI is 30 -Recommend weight loss -Complicates treatment, prognosis, outcomes DVT prophylaxis -Continue subcu heparin CODE STATUS -DNR CCA with no intubation Charges/Coding Visit Charges Inpatient E&M: 53525 Subs Hosp L2
--- NOTE | 2024-04-11 13:25 | CASEMGMT ---
[facility] Face to Face with patient for initial transition planning/care coordination assessment. RN LILLI introduced self and role at [facility]. Patient lying in bed, alert and oriented, at bedside. Patient willing to participate in assessment and is able to answer all questions appropriately. Care providers, pharmacy, and demographics verified. 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 Patient is independent Transportation: DME/HHC: Patient has shower chair, cane, and glucometer at home. No previous HHC or SNF. assists with wound care. Therapy recommending walker at discharge, patient prefers [employer]. Script on chart of hospitalist to sign with green sheet. Patient wishes to discharge home, denies need for home health at this time. Patient states he has no further needs or concerns at this time. CM to follow for discharge planning needs that may arise. Disposition Plan: Patient to discharge home with family support and follow-up plans in place. Zenobia TONY, RN, CM
[2024-04-11 13:41] LABS: Bedside Glucose 105 mg/dL (74-106)
[2024-04-11 14:30] VITALS: BP 140/81; PULSE 67; RESP 18; TEMP 36.8; O2SAT 98
[2024-04-11] MEDS: Insulin Lispro 100 UNIT/ML INSULN.PEN SC (17:05)
[2024-04-11] MEDS: Warfarin (BKC) 3 MG Tablet PO (17:07)
[2024-04-11 17:27] LABS: Bedside Glucose 150 mg/dL (74-106)
[2024-04-11 21:03] VITALS: BP 129/75; PULSE 90; RESP 18; TEMP 37.1; O2SAT 97
[2024-04-11] MEDS: Psyllium 1 PACKET PO (21:17)
[2024-04-11] MEDS: Atorvastatin Calcium 40 MG Tablet PO (21:17)
[2024-04-11 23:04] LABS: Bedside Glucose 141 mg/dL (74-106)
[2024-04-12] MEDS: 0.9% Normal Saline (500mL Bag) 500 ML 15 ML IV (04:14)
[2024-04-12 04:15] VITALS: BP 120/76; PULSE 73; RESP 18; TEMP 36.4; O2SAT 97
[2024-04-12 04:59] LABS: Vancomycin, Trough Level 16.6 ug/mL (5.0-15.0)
[2024-04-12] MEDS: Vancomycin HCl 1,250 MG in 0.9% Normal Saline (250mL Bag) 250 ML 167 MG IV (05:11)
--- NOTE | 2024-04-12 05:25 | PCM.RX.CS ---
Consult Antibiotic Management Pharmacy has been consulted to manage selected antibiotic: Vancomycin Type of Intervention Type of Consult: Follow-up Suspected Infection Suspected Infection: Skin/Soft tissue Labs Labs: Sodium 139 mmol/L (136-145) 04/11/24 05:05 Potassium 3.9 mmol/L (3.5-5.1) 04/11/24 05:05 Chloride 107 mmol/L (98-107) 04/11/24 05:05 Carbon Dioxide 25.0 mmol/L (21.0-32.0) 04/11/24 05:05 Anion Gap 6 (5-15) 04/11/24 05:05 BUN 14 mg/dL (7-18) 04/11/24 05:05 Creatinine 1.01 mg/dL (0.70-1.30) 04/11/24 05:05 Est GFR (MDRD) Af Amer 92 mL/min (>60) 04/11/24 05:05 Est GFR (MDRD) Non-Af 76 mL/min (>60) 04/11/24 05:05 BUN/Creatinine Ratio 13.9 RATIO (10-20) 04/11/24 05:05 Glucose 108 mg/dL (74-106) H 04/11/24 05:05 Vancomycin Trough 16.6 ug/mL (5.0-15.0) H 04/12/24 04:10 Microbiology Microbiology: Microbiology 04/10/24 22:35 Wound - Right Foot Gram Stain - Final 04/10/24 22:35 Wound - Right Foot Skin and Soft Tissue MRSA/MSSA (PCR - Final Dosing Weight Weight used for dosin kg Estimated Creatinine Clearance Estimated Creatinine Clearance: 78 Goal Trough Goal Trough: 15-20 mcg/mL Pharmacy Plan for Drug Dosing Pharmacy Plan for Drug Dosing: Vancomycin trough level of 16.6, drawn 11.25hrs post-dose, was within the target range of 15-20. Will continue dosing at 1250mg q12h, and will draw another trough in two days. Pharmacy Service will continue to monitor and adjust dosing as required. Follow-Up Labs Follow-Up Labs: Trough: Vancomycin Date/Time Labs Ordered Labs to be done on [date and time ordered]: 04/14/24 @0400
[2024-04-12] MEDS: Gabapentin 400 MG Capsule 1200 MG PO (06:25)
[2024-04-12] MEDS: Piperacil/Tazobactam 3.375 GM in 0.9% Normal Saline (50mL MB+) 50 ML IV (06:25)
[2024-04-12] MEDS: Heparin Injection (Vial) 5,000 UNIT/ML VIAL 5000 UNIT SC (06:25)
[2024-04-12 07:04] LABS: Bedside Glucose 124 mg/dL (74-106)
--- NOTE | 2024-04-12 08:57 | PCM.DC.SUM ---
Providers Date of Admission: 04/10/24 Date of Discharge: 04/12/24 Primary Care Physician: Dr. Ruthann Gooden MD Consultations 04/10/24 20:59 Consult: Onc/Wound/financial sales manager Routine Comment: Consult: Podiatry Routine Consulting Provider: Matt Paris Reason for Consult: R diabetic foot infection, sent by his electronic plotting system operator EMERGENT Consult: No MD Notified: Yes Date Notified: 04/10/24 Time Notified: 20:46 Method of Notification: ED Physician Initiated Reason For Visit: FOOT WOUND Diagnosis Discharge Diagnosis (1) Diabetic foot ulcer: Status: Acute Code(s): E11.621 - Type 2 diabetes mellitus with foot ulcer; L97.509 - Non-pressure chronic ulcer of other part of unspecified foot with unspecified severity Qualifiers: Diabetes mellitus type: type 2 Diabetic foot ulcer location: midfoot Laterality: right Non-pressure ulcer stage: with fat layer exposed Qualified Code(s): E11.621 - Type 2 diabetes mellitus with foot ulcer; L97.412 - 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 exposed (2) Cellulitis: Status: Acute Code(s): L03.90 - Cellulitis, unspecified Qualifiers: Laterality: right Site of cellulitis: extremity Site of cellulitis of extremity: lower extremity Qualified Code(s): L03.115 - Cellulitis of right lower limb Medications at Discharge Home Medications multivitamin 1 tab PO DAILY vitamin 01/29/18 tamsulosin 0.4 mg capsule 0.4 mg PO DAILY prostate 01/29/18 lancets 28 gauge (FreeStyle Lancets) #100 ea 01/21/23 amiodarone 200 mg tablet 100 mg (1/2 x 200 mg) PO DAILY #45 tabs 04/16/23 warfarin 3 mg tablet 3 mg PO DAILY #90 tabs 02/18/24 gabapentin 400 mg capsule 1,200 mg (3 x 400 mg) PO TID 30 days #270 caps 04/06/24 atorvastatin 40 mg tablet 40 mg PO DAILY #90 TABLETS 04/10/24 blood sugar diagnostic (Accu-Chek Guide test strips) #100 strips 04/10/24 psyllium husk 3.4 gram/5.4 gram oral powder (Metamucil) 2 tsp PO BID daily fiber 04/11/24 levofloxacin 750 mg tablet 750 mg PO DAILY #9 tabs 04/12/24 Hospital Course Operations None Procedures - (Foot x-ray) Summary of Care Provided Minutes Spent on Discharge: 25 Hospital Course: Mr. Meadows is a 79-year-old white male who presented to the emergency department at [facility] on 04/12/2020 for due to a right foot wound. He has been following with Dr. Rosales for 2 ulcers on his right foot medial and laterally. He has been seeing him for about 8 weeks now and reported that Dr. Rosales had him healing well until the day of presentation when the dressing was taken off and it had increased erythema and warmth and was fairly rapid progression from where it had been previously. His electronic plotting system operator urged him to be evaluated in the emergency department. He does not have any pain due to history of neuropathy and Charcot foot from his diabetes. His diabetes is excellently controlled. His CBC showed a mildly elevated white count 11.1 with a minimal CRP elevation 8.57 but given his worsening erythema and swelling with concern for infection culture was obtained he was started on IV antibiotics. Restaurant Host on-call, Dr. Paris, was called and he evaluated the patient on the floor after admission. He was placed initially on vancomycin and Zosyn. Podiatry evaluated the patient and recommended no surgical intervention, continued oral antibiotics, continue dressing changes and follow-up at the wound center. His culture showed rare white blood cells and no organisms on the Gram stain. Final culture was pending at the time of discharge. Patient was clinically improved per discussion with the patient and his and felt stable for discharge home on 03/12/2024. He will continue Levaquin for another 9 days after discharge to complete a total of 10 days antibiotics. He was seen by physical and Occupational Therapy during his hospitalization and he was provided a wheeled walker to minimize pressure on his right foot after discharge. We recommended weightbearing only through the heel at this time. Prescriptions for Levaquin were sent to local pharmacy at the time of discharge and he was discharged home in stable condition on 04/12/2024. No other medication changes were made. Physical Exam Const alert, oriented x3, no apparent distress, no limitations and well nourished; Negative for average body habitus Constitutional Narrative: Very pleasant, elderly, white male, reclining in bed, appears comfortable, nontoxic, watching television, at bedside General Appearance: cooperative, comfortable, well kempt and well developed Exam Limitations: no limitations Nutritional Appearance: obese HEENT normocephalic, head/scalp atraumatic and moist oral mucous membranes; Negative for hearing grossly normal bilaterally HEENT Narrative: Mallampati 2, no thrush Resp normal respiratory effort, no retractions, no use of accessory muscles and clear to auscultation bilaterally Auscultation: Negative for rales, rhonchi or wheezes Cardio regular rate, regular rhythm, S1 normal heart sound, S2 normal heart sound, no murmurs, no rub, no gallops and no clicks GI normal to inspection, nondistended, normoactive bowel sounds, soft to palpation and non-tender Extremity Extremity Narrative: 1+ cap refill right lower extremity, no clubbing or cyanosis, no edema, bilateral foot deformity would lead to Charcot right greater than left Skin Skin Narrative: Patient with a well-healing wound on the medial aspect of his right foot and an ulceration on the lateral aspect of his right midfoot with some mild surrounding erythema at this time that seems to be related more to healing, he has no significant notable cellulitis currently, no purulent looking drainage and no pain. Neuro oriented x3, moves all extremities and no focal motor deficits Neuro Narrative: Decreased sensation bilateral lower extremities that is severe Speech: speech normal Psych affect normal Psych Narrative: Very pleasant, interacts appropriately Weight / BMI Weight Weight: 105.9 kg Body Mass Index (BMI) 29.9 ABG / Lab / Microbiology Data 04/11/24 05:05 04/11/24 05:05 Laboratory: Laboratory Results - last 24 hr 04/11/24 13:19: POC Glucose 105 04/11/24 17:03: POC Glucose 150 H 04/11/24 21:13: POC Glucose 141 H 04/12/24 04:10: Vancomycin Trough 16.6 H 04/12/24 06:24: POC Glucose 124 H Microbiology: Microbiology 04/10/24 22:35 Wound - Right Foot Gram Stain - Final 04/10/24 22:35 Wound - Right Foot Skin and Soft Tissue MRSA/MSSA (PCR - Final D/C Instructions Discharge Diet: Low fat / Low cholesterol and 1800 Calorie Control Diet Discharge Activity: Use Walker (Put weight only through heel of right foot when walking) Meaningful Use Info Meaningful Use Meaningful Use Diagnoses (Choose all that apply): None applicable Ischemic Stroke Statin Dosing Therapy Reference: STATIN DOSE THERAPY REFERENCE: * Patients > 75 years receive moderate or high dose statin therapy. * Patients 75 years or YOUNGER should receive HIGH intensity statin dose unless contraindicated. You will be required to document reason for non-treatment if statin daily dose does not meet guidelines. HIGH DOSE STATIN THERAPY DAILY Atorvastatin > than or = to 40 mg Rosuvastatin > than or = to 20 mg Amlodipine + Atorvastatin > than or = to 2.5/40 mg Ezetimibe + Simvastatin 10/80 mg Simvastatin 80mg Discharge Plan Admission Admit Date/Time: 04/10/24 19:19 Primary Reason for Your Visit: R Foot Wound Attending Provider: Maine Garcia Primary Care Provider: Ruthann Gooden Consulting Providers: Matt Paris; Rosana Saleem Instructions Additional Instructions / Restrictions: 1. Please follow-up at the wound care as discussed 2. Please complete antibiotics as ordered 3. Please use a walker when ambulating and put weight only through the heel of your right foot for now Discharge Orders/Prescriptions Prescriptions: New levofloxacin 750 mg tablet 750 mg PO DAILY Qty: 9 0RF Continued multivitamin tablet 1 tab PO DAILY tamsulosin 0.4 mg capsule 0.4 mg PO DAILY Metamucil 3.4 gram/5.4 gram powder 2 tsp PO BID (DME) lancets [FreeStyle Lancets] 28 gauge misc See Rx Instructions .Route Qty: 100 1RF Rx Instructions: As directed amiodarone 200 mg tablet 100 mg PO DAILY Qty: 45 3RF warfarin 3 mg tablet 3 mg PO DAILY Qty: 90 0RF gabapentin 400 mg capsule 1,200 mg PO TID 30 Days Qty: 270 0RF atorvastatin 40 mg tablet 40 mg PO DAILY Qty: 90 1RF (DME) Accu-Chek Guide test strips Strip See Rx Instructions .ROUTE .COMPLEX Qty: 100 1RF Dose Instruction: Use to test BLOOD SUGAR ONCE DAILY Rx Instructions: Use to test BLOOD SUGAR ONCE DAILY Other Ambulatory Orders: Wound Care Referral (Routine) Timeframe: [id number] Facility: [facility] - Location[facility] Ordered By: Dr. Maine Garcia Referrals / Follow Up: Ruthann Gooden MD [Primary Care Provider] - In 1 Week Disposition Disposition (needs filled in before D/C Order can be placed): Home, Self Care Charges/Coding Visit Charges Inpatient E&M: 40605 Disch Hosp
[2024-04-12] MEDS: Psyllium 1 PACKET PO (09:12)
[2024-04-12] MEDS: Amiodarone 200 MG Tablet 100 MG PO (09:13)
[2024-04-12] MEDS: Multivitamins,Therapeutic Tablet 1 TABLET PO (09:13)
[2024-04-12] MEDS: Tamsulosin HCl 0.4 MG Capsule PO (09:13)
[2024-04-12 09:56] VITALS: BP 135/81; PULSE 70; RESP 16; TEMP 36.6; O2SAT 95
== END 2024-04-12 11:10 | disposition home or self-care (01) | DRG 638 ==
LOC: ED 17:20 → MS3 19:14
PROVIDERS: Nurse Practitioner; Admitting Provider Internal Medicine; Emergency Provider Emergency Medicine; PCP Internal Medicine; Visit Provider Internal Medicine
DX: E11.621 Type 2 diabetes mellitus with foot ulcer (principal); L03.115 Cellulitis of right lower limb; L97.412 Non-pressure chronic ulcer of right heel and midfoot with fat layer exposed; Z66 Do not resuscitate; I10 Essential (primary) hypertension; E11.42 Type 2 diabetes mellitus with diabetic polyneuropathy; Z68.30 Body mass index [BMI] 30.0-30.9, adult; I48.0 Paroxysmal atrial fibrillation; L97.512 Non-pressure chronic ulcer of other part of right foot with fat layer exposed; E78.5 Hyperlipidemia, unspecified; Z79.4 Long term (current) use of insulin; K21.9 Gastro-esophageal reflux disease without esophagitis; M14.671 Charcot's joint, right ankle and foot; E11.69 Type 2 diabetes mellitus with other specified complication; Z79.2 Long term (current) use of antibiotics; Z79.01 Long term (current) use of anticoagulants; E66.9 Obesity, unspecified; N40.0 Benign prostatic hyperplasia without lower urinary tract symptoms; Z95.0 Presence of cardiac pacemaker; Z96.653 Presence of artificial knee joint, bilateral; Z98.890 Other specified postprocedural states
CPT/HCPCS: 36415; 73630; 80048; 80053; 80202; 82962; 83605; 85025; 85610; 85652; 85730; 86140; 87040; 87070; 87077; 87186; 87205; 87640; 93005; 97110; 97162; 97165; 97530; 97802; 99285; A4216

== ENCOUNTER → 2024-10-20 | Outpatient (CLI) | payer MEDICARE, SELFPAY | END | disposition home or self-care (01) | LOC: PSN 09:07 | PROVIDERS: PCP Internal Medicine; Referring Provider Nurse Practitioner Gerontology; Visit Provider Nurse Practitioner Gerontology | DX: Z79.899 Other long term (current) drug therapy (principal) | CPT/HCPCS: 94060; 94726; 94729 ==

== ENCOUNTER → 2025-04-06 | Outpatient (CLI) | payer MEDICARE, SELFPAY ==
[2025-04-06 17:40] LABS: Hematocrit 42.6 % (40-54); Hemoglobin 14.3 g/dL (13.0-16.5); Immature Granulocytes Count 0.000 X10^3/uL (0.0-0.0); Mean Corp Hgb Conc 33.6 g/dL (32-36); Mean Corpuscular Volume 90.4 fL (80-94); Mean Platelet Vol. 12.4 fl (6.2-12.0); NRBC Flagged by Analyzer 0 % (0-5); Platelet Count 200 K/mm3 (150-450); RBC Distribution Width CV 13.2 % (11.6-14.6); RBC Distribution Width SD 43.8 fl (35.1-43.9); Red Blood Count 4.71 M/mm3 (4.6-6.2); White Blood Count 5.3 K/mm3 (4.4-11.0)
[2025-04-06 18:20] LABS: AST(SGOT) 26 U/L (<=37); Alanine Aminotransfer ALT/SGPT 25 U/L (<=46); Albumin, Serum 4.2 g/dL (3.4-4.8); Alkaline Phosphatase 132 U/L (40-129); Bilirubin, Direct 0.30 mg/dL (0.00-0.30); Cholesterol 116 mg/dL (<=200); Globulin 2.7 g/dL (2.2-4.2); Low Density Lipoprotein Calc. 39 mg/dL; Triglycerides 225 mg/dL; Very Low Density Lipoprotein 45 mg/dL (5-40); cholesterol:hdl ratio screen 2.78
[2025-04-06 18:33] LABS: AST(SGOT) 27 U/L (<=37); Alanine Aminotransfer ALT/SGPT 24 U/L (<=46); Albumin, Serum 4.3 g/dL (3.4-4.8); Alkaline Phosphatase 136 U/L (40-129); Anion Gap 12 (5-15); BUN 18 mg/dL (4-19); BUN/Creat Ratio 13.8 RATIO (10-20); Calcium,Total 8.9 mg/dL (7.6-11.0); Carbon Dioxide 26.0 mmol/L (21.0-32.0); Chloride 105 mmol/L (98-108); Globulin 2.6 g/dL (2.2-4.2); Glucose 115 mg/dL (70-99); Magnesium 2.2 mg/dL (1.5-2.2); Potassium 4.1 mmol/L (3.3-5.1)
== END | disposition home or self-care (01) ==
LOC: MTLAB 14:31
PROVIDERS: Nurse Practitioner Gerontology; PCP Internal Medicine; Referring Provider Nurse Practitioner Family; Visit Provider Nurse Practitioner Family
DX: I48.0 Paroxysmal atrial fibrillation (principal); E11.622 Type 2 diabetes mellitus with other skin ulcer; Z79.899 Other long term (current) drug therapy; Z95.0 Presence of cardiac pacemaker; E78.5 Hyperlipidemia, unspecified
CPT/HCPCS: 36415; 80053; 80061; 80076; 83735; 84439; 84443; 85025

== ENCOUNTER → 2025-05-13 | Outpatient (CLI) | payer MEDICARE, SELFPAY ==
[2025-05-13 12:08] LABS: Hematocrit 45.8 % (40-54); Hemoglobin 15.5 g/dL (13.0-16.5); Immature Granulocytes Count 0.100 X10^3/uL (0.0-0.0); Mean Corp Hgb Conc 33.8 g/dL (32-36); Mean Corpuscular Volume 88.6 fL (80-94); Mean Platelet Vol. 11.8 fl (6.2-12.0); NRBC Flagged by Analyzer 0 % (0-5); Platelet Count 207 K/mm3 (150-450); RBC Distribution Width CV 12.9 % (11.6-14.6); RBC Distribution Width SD 41.8 fl (35.1-43.9); Red Blood Count 5.17 M/mm3 (4.6-6.2); White Blood Count 7.3 K/mm3 (4.4-11.0)
[2025-05-13 12:48] LABS: Anion Gap 13 (5-15); BUN 18 mg/dL (4-19); BUN/Creat Ratio 15.4 RATIO (10-20); Calcium,Total 8.8 mg/dL (7.6-11.0); Carbon Dioxide 22.0 mmol/L (21.0-32.0); Chloride 108 mmol/L (98-108); Glucose 103 mg/dL (70-99); Magnesium 2.1 mg/dL (1.5-2.2); Potassium 4.2 mmol/L (3.3-5.1); Pro- Brain NATRIURETIC PEPTIDE 1732 pg/mL (<=1800)
== END | disposition home or self-care (01) ==
LOC: LAB 11:13
PROVIDERS: PCP Internal Medicine; Referring Provider Nurse Practitioner Gerontology; Visit Provider Nurse Practitioner Gerontology
DX: I48.0 Paroxysmal atrial fibrillation (principal); R06.02 Shortness of breath
CPT/HCPCS: 36415; 80048; 83735; 83880; 84443; 85025